=== PATIENT | male | born 1950 | race Caucasian/White ===

== ENCOUNTER 2018-06-28 02:26 | Inpatient (IN) | payer OTHER, MEDICARE, SELFPAY ==
[2018-06-28] VITALS (14 sets, daily range): BP systolic 119–138; BP diastolic 56–75; PULSE 93–108; RESP 16–20; TEMP 37.1–38; O2SAT 94–98; BMI 22.1; BMI 20.3
--- NOTE | 2018-06-28 02:40 | RAD_ITS ---
STUDY: X-RAY CHEST REASON FOR EXAM: Male, 67 years old. Fever TECHNIQUE: 1 view COMPARISON: None. FINDINGS: The lungs are clear. The heart is normal in size. This is slightly elevated right hemidiaphragm.. Normal visualized thoracic spine. Degenerative changes of the right glenohumeral articulation There is no demonstrated abnormality of the visualized soft tissue structures of the upper abdomen. RAD/Chest 1 View (Portable) IMPRESSION: No acute findings in the lungs. Slightly elevated right hemidiaphragm Electronically Signed: London Morrow MD at 3:36 EST Tel , Service support ,
[2018-06-28] MEDS: 0.9% Normal Saline 1,000 ML 150 ML IV (03:00)
[2018-06-28 03:05] LABS: Absolute Lymphocyte Count 1.21 X10^3/ul (0.83-4.51); Absolute Neutrophil Count 10.3 X10^3/uL (2.0-7.7); Basophil# 0.02 X10^3/uL; Basophil% 0.2 % (0-1); Eosinophil# 0.02 X10^3/uL; Eosinophils% 0.2 % (0-5); Hematocrit 49.5 % (40-54); Lymphocyte # 1.21 X10^3/ul (4.0); Lymphocyte % 9.7 % (19-41); Mean Corp Hgb Conc 32.3 g/gl (32-36); Mean Corpuscular Hgb 30.2 pg (27.0-32.0); Mean Corpuscular Volume 93.6 fL (80-94); Mean Platelet Vol. 12.9 fl (6.2-12.0); Monocyte# 0.88 X10^3/uL; Monocyte% 7.1 % (0-10); Neutrophil # 10.27 X10^3/uL (2.7-7.7); Neutrophil % 82.6 % (47-70); POSITIVE COUNT NO; POSITIVE DIFFERENTIAL NO; POSITIVE MORPHOLOGY NO; Platelet Count 210 K/mm3 (150-450); RBC Distribution Width CV 15.8 % (11.6-14.6); RBC Distribution Width SD 53.9 fl (35.1-43.9); Red Blood Count 5.29 M/mm3 (4.6-6.2); White Blood Count 12.4 K/mm3 (4.4-11.0)
[2018-06-28 03:33] LABS: Mucous, Urine 0 SEEN /hpf (<or=2+); Squamous Epithelial Cells - UA 0 SEEN /hpf (0-5)
[2018-06-28 03:36] LABS: Color, Urine Yellow (Yellow); Glucose, Dipstick Normal (Normal); Ketone-Dipstick Negative (Negative); Leukocyte Esterase-Dipstick 500 /ul (Negative); Nitrite-Dipstick Positive (Negative); Occult Blood-Urine 10 /ul (Negative); Protein-Dipstick Negative (Negative); Urine Bilirubin Dipstick Negative (Negative); Urine Clarity Sl. Cloudy (Clear); Urine Urobilinogen Normal (Normal)
[2018-06-28 03:58] LABS: Bacteria 2+ /hpf (None Seen); Red Blood Cells-Urine 0-5 SEEN /hpf (0-5); White Blood Cells 10-25 SEEN /hpf (0-5)
[2018-06-28 04:17] LABS: ALB/GLOB Ratio 0.4 RATIO (0.9-2.4); AST(SGOT) 60 U/L (15-37); Alanine Aminotransfer ALT/SGPT 90 U/L (16-61); Albumin, Serum 1.8 g/dL (3.2-5.0); Alkaline Phosphatase 118 U/L (45-117); Anion Gap 8 (5-15); BUN 18 mg/dL (7-18); BUN/Creat Ratio 41.1 RATIO (10-20); Calcium,Total 8.3 mg/dL (8.5-10.1); Chloride 105 mmol/L (98-107); Creatinine, Serum 0.44 mg/dL (0.70-1.30); EST Glomerular Filtration Rate 204 mL/min (>60); Est Glom Filt Rate - Afr Amer 246 mL/min (>60); Estimated Creatinine Clearance 55.81 ml/min; Globulin 4.1 g/dL (2.2-4.2); Glucose 127 mg/dL (74-106); Potassium 3.9 mmol/L (3.5-5.1); Protein, Total 5.9 g/dL (6.4-8.2); Sodium Level 140 mmol/L (136-145)
--- NOTE | 2018-06-28 04:26 | ED.RN ---
CALLED [facility] EXT. [id number]. NELLI STATED THAT THEY DO NOT HAVE ANY BEDS AVAILABLE THROUGH THE [place] AND IT IS OKAY TO ADMIT THIS PT TO [facility].
[2018-06-28 04:27] LABS: Lactic Acid 1.4 mmol/L (0.4-2.0)
--- NOTE | 2018-06-28 04:29 | ED.VISSUMM ---
- ER Visit Summary Date of Service: 06/28/18 Chief Complaint: [Fever] History of Present Illness: The patient is a 67 M [presents the emergency department with complaint of a fever that started last evening around 11 PM. Patient began to feel flushed and when he checked his temperature at home it was 102. gave him Tylenol. Patient does have a history of multiple sclerosis. Patient just generally feeling weak. Patient's had a chronic cough. Patient had a baclofen pump replaced on the of the month at the [place]. Patient denies any abdominal pain. Denies any chest pain. He denies any dysuria. Patient does use a condom catheter at night.] Physical Examination: [HEENT-PERRLA, EOMI. Cranial nerves II through XII grossly intact. TMs clear. Mucous membranes moist. No adenopathy. Cardiovascular-regular rate and rhythm without murmur or ectopy Lungs-clear to auscultation, chest wall stable without crepitus or subcu emphysema Abdomen-normoactive bowel sounds, soft, nontender, no rebound or rigidity, no peritoneal signs. Patient has a baclofen pump noted in the right side of the abdomen with surrounding erythema and warmth noted. No drainage noted from the wound. Extremities-intact ?4, normal range of motion, normal pulses, atraumatic] Test Results: [CBC with differential showed a white count 12.4, hemoglobin 16, hematocrit 49, platelets 210. Chemistries unremarkable. LFTs were slightly elevated with an alk phos of 118 ALT of 90 and a AST of 60. Chest x-ray showed nothing acute. Urinalysis was positive for nitrites, 500 leukocyte esterase, 1025 WBCs, and +2 bacteria. Lactate was 1.4.] Emergency Department Course and Treatment: [Patient was started on Unasyn and vancomycin. Blood cultures ordered.] Treatment Plan: [Admit for IV antibiotics] Disposition: [Admit] Impression: [Sepsis UTI Postop wound infection] This note was generated with [employer] software. It may contain incorrect words, spelling, and punctuation that were not noted in review of the chart prior to signing ED Disposition - Plan for ED Patient: Chief Complaint: Fever
--- NOTE | 2018-06-28 04:37 | ED.DCSUM_ITS ---
- ER Visit Summary Date of Service: 06/28/18 Chief Complaint: [Fever] History of Present Illness: The patient is a 67 M [presents the emergency department with complaint of a fever that started last evening around 11 PM. Patient began to feel flushed and when he checked his temperature at home it was 102. gave him Tylenol. Patient does have a history of multiple sclerosis. Patient just generally feeling weak. Patient's had a chronic cough. Patient had a baclofen pump replaced on the of the month at the [place]. Patient denies any abdominal pain. Denies any chest pain. He denies any dysuria. Patient does use a condom catheter at night.] Physical Examination: [HEENT-PERRLA, EOMI. Cranial nerves II through XII grossly intact. TMs clear. Mucous membranes moist. No adenopathy. Cardiovascular-regular rate and rhythm without murmur or ectopy Lungs-clear to auscultation, chest wall stable without crepitus or subcu emphysema Abdomen-normoactive bowel sounds, soft, nontender, no rebound or rigidity, no peritoneal signs. Patient has a baclofen pump noted in the right side of the abdomen with surrounding erythema and warmth noted. No drainage noted from the wound. Extremities-intact ?4, normal range of motion, normal pulses, atraumatic] Test Results: [CBC with differential showed a white count 12.4, hemoglobin 16, hematocrit 49, platelets 210. Chemistries unremarkable. LFTs were slightly elevated with an alk phos of 118 ALT of 90 and a AST of 60. Chest x-ray showed nothing acute. Urinalysis was positive for nitrites, 500 leukocyte esterase, 1025 WBCs, and +2 bacteria. Lactate was 1.4.] Emergency Department Course and Treatment: [Patient was started on Unasyn and vancomycin. Blood cultures ordered.] Treatment Plan: [Admit for IV antibiotics] Disposition: [Admit] Impression: [Sepsis UTI Postop wound infection] This note was generated with [employer] software. It may contain incorrect words, spelling, and punctuation that were not noted in review of the chart prior to signing ED Disposition - Plan for ED Patient: Chief Complaint: Fever
--- NOTE | 2018-06-28 05:24 | HP.PCM_ITS ---
Problem List (1) Cellulitis Status: Acute Qualifiers: Site of cellulitis: trunk Site of cellulitis of trunk: abdominal wall Qualified Code(s): L03.311 - Cellulitis of abdominal wall (2) UTI (urinary tract infection) Status: Acute Qualifiers: Urinary tract infection type: site unspecified (3) Sepsis Status: Acute Qualifiers: Sepsis type: sepsis due to unspecified organism Qualified Code(s): A41.9 - Sepsis, unspecified organism (4) HTN (hypertension) Status: Chronic Qualifiers: Hypertension type: essential hypertension Qualified Code(s): I10 - Essential (primary) hypertension (5) HLD (hyperlipidemia) Status: Chronic Qualifiers: Hyperlipidemia type: pure hypercholesterolemia Qualified Code(s): E78.00 - Pure hypercholesterolemia, unspecified; E78.0 - Pure hypercholesterolemia (6) Anxiety and depression Status: Chronic (7) Malnutrition Status: Chronic Qualifiers: Malnutrition type: protein-calorie malnutrition Protein-calorie malnutr ition severity: severe Qualified Code(s): E43 - Unspecified severe protein- calorie malnutrition (8) Multiple sclerosis Status: Chronic History of Present Illness Date of Admission: 06/28/18 Chief Complaint: Fever, chills The patient is a 67 y/o M w/ PMHx: Multiple Sclerosis w/ Chronic Oropharyngeal Dysphagia on TF via PEG only in addition to condom catheter chronically notable extremity contractures, HTN, HLD, History of GI Bleed, Anxiety and Depression, GERD who presents to the [facility] ED on 06/28/18 with history of onset fever on evening of presentation in addition to general malaise, increased fatigue x 48 hours. The patient had recent 06/19/18 baclofen pump replacement and had follow- up with his surgeon the day prior. There has been serous drainage from the region but no purulent material. In the ED upon evaluation the patient had noted erythema to the lateral side of the pump insertion site region which the and patient had not noticed prior. The patient follows w/ the [facility] and an attempt to transition to [facility] was made however there were no beds available. Work- up in the ED included T 98.8, HR 105, BP 130/64, RR 20, 96% on RA, CBC w/ WBC 12.4, Hgb 16, Plts 210 with L shift, CMP w/ BUN/Cr 18/0.44, glucose 127, LA 1.4, AST/ALT 60/90, Alk phos 118, UA w/ positive nitrite, 500 LE, 10-25 WBC, 2+ bacteria, CXR without acute cardiopulmonary findings. In the ED patient administered vanc, unasyn, NS. Past Medical History Past Medical History (Chronic Problems): Chronic Problems HTN (hypertension) (Chronic) HLD (hyperlipidemia) (Chronic) Anxiety and depression (Chronic) Malnutrition (Chronic) Multiple sclerosis (Chronic) Allergies No Known Allergies Allergy (Verified 06/28/18 02:30) Home Medications: Ambulatory Orders Medication Instructions Recorded Baclofen Pump CONT 06/23/13 Baclofen [Lioresal] 5 mg GT DAILY PRN 06/23/13 Baclofen [Lioresal] 10 mg GT QHS 06/23/13 Calcium Carbonate/Vitamin D3 1 each GT DAILY 06/23/13 [Calcium 600-Vit D3 400 Tablet] Clonazepam [Klonopin] 1 mg GT QHS 06/23/13 Rosuvastatin Calcium [Crestor] 0.5 mg GT QODAY 06/23/13 Mirtazapine 22.5 mg GT QHS 10/08/15 Menthol/Lanolin/Calamine/Znox 1 applic TOPICAL TID #2 tube 10/10/15 [Calmoseptine Ointment] Bacitracin Ointment 1 applic TOPICAL TID 06/28/18 Chlorpromazine HCl 10 mg GT TID PRN 06/28/18 Cholecalciferol (VIT D3) [Vitamin 1,000 unit GT DAILY 06/28/18 D] Doxazosin Mesylate [Cardura] 1 mg GT QHS 06/28/18 Nutrit Supp/Inulin/Fos/Fiber 500 ml GT TID 06/28/18 [Fibersource Hn Liquid] Ranitidine [Zantac] 75 mg GT QHS 06/28/18 Surgical History: - - PEG, Baclofen pump with recent replacement, penile implant. Psychiatric History: Anxiety, Depression Lives: Spouse/ Significant Other Smoking Status: Never smoker Tobacco Use: Non-smoker Alcohol: None Drugs: None - *Family History Maternal History Items: Cancer - Mother health aside history of skin CA. Paternal History Items: Heart Disease Review of Systems Constitutional: Reports: Anorexia, Fever, Malaise, Weakness, Fatigue. Denies: Chills, Weight Change HEENT: Denies: Head Aches, Sinus Congestion, Sinus Drainage Cardiovascular: Denies: Chest Pain, Palpitations Respiratory: Denies: Cough, Shortness of breath at rest, Sputum production Gastrointestinal: Reports: Abdominal Pain. Denies: Nausea, Vomiting Genitourinary: Reports: Incontinence. Denies: Dysuria Musculoskeletal: Reports: Back Pain, Joint Pain. Denies: Joint Tenderness Skin: Reports: Skin Changes, Wounds. Denies: Rash Neurological: Reports: Balance problems, Slurred speech, Difficulty swallowing, Focal weakness, - - Spasms, MS. Denies: Numbness, Tingling Psychiatric: Reports: Anxiety, Depression. Denies: Homicidal Ideations, Suicidal Ideations Hematologic/ Lymphatic: Denies: Easy Bruising, Easy Bleeding VTE Information - Inpt Only VTE Present on Admission: No VTE Mechan Device Prophylaxis: SCD's VTE Pharm Prophylaxis ordered?: Yes Patient Problems: Active and Suspected Problems Cellulitis (Acute) UTI (urinary tract infection) (Acute) Sepsis (Acute) Subjective: Seated upright in the ED bed, dysarthria, hoarse voice, notable secretions, all chronic, NAD. Objective: Physical Examination: General: awake, alert, oriented x 3 and cooperative, seated upright inthe ED bed in no apparent distress. Skin: normal color, turgor, no icterus, cyanosis except R upper abdomen recent intrathecal baclofen pump insertion replacement with lateral incision erythema and tenderness palpation of the region. HEENT: AT/NC, EOMI, PERRLA, dry MM, notable secretions with frequently suctioning, no carotid bruits or JVD noted. Lungs: Diminished breath sounds bilaterally, greater bilateral gait bases, mild effort, no rales, ronchi or wheezing. Heart: Regular rate and rhythm; no gallop, rub audible. Abdomen: soft, thin habitus, TTP RUQ w/ recent baclofen pump replacement, PEG in place, ND, mildly hyperactive BS, no HSM. Extremities: no cyanosis, clubbing, notable contractures BL UE > BL LE, muscle wasting. Neurological: patient awake, alert, oriented x 3; cognitive function intact; pupils equally reactive to light and accomodation; cranial nerves II-XII grossly normal, notable contractures upper and lower extremities, notable deficits, strength severely globally decreased. Psychiatric: affect appears flat, fatigued, no acute evidence of depressive or anxiety feelings. - Physical Exam Vital Signs Temp Pulse Resp BP Pulse Ox 99 F 101 H 20 H 119/75 98 06/28/18 04:03 06/28/18 04:03 06/28/18 04:03 06/28/18 04:03 06/28/18 04:03 Oxygen Delivery Method Room Air Weight: 124 lb 12.506 oz Body Mass Index (BMI) 22.1 Laboratory Tests Past 24 Hrs 06/28/18 06/28/18 06/28/18 02:58 02:58 02:58 WBC 12.4 H RBC 5.29 Hgb 16.0 Hct 49.5 MCV 93.6 MCH 30.2 MCHC 32.3 RDW 15.8 H RDW Differential 53.9 H Plt Count 210 MPV 12.9 H Immature Gran % (Auto) 0.200 Neut % (Auto) 82.6 H Lymph % (Auto) 9.7 L [place] % (Auto) 7.1 Eos % (Auto) 0.2 Baso % (Auto) 0.2 Absolute Neuts (auto) 10.3 H Absolute Lymphs (auto) 1.21 Total Counted Not Reportable Sodium Cancelled Potassium Cancelled Chloride Cancelled Carbon Dioxide Cancelled Anion Gap Cancelled BUN Cancelled Creatinine Cancelled Estim Creat Clear Calc Cancelled Est GFR (MDRD) Af Amer Cancelled Est GFR (MDRD) Non-Af Cancelled BUN/Creatinine Ratio Cancelled Glucose Cancelled Lactic Acid Cancelled Calcium Cancelled Total Bilirubin Cancelled AST Cancelled ALT Cancelled Alkaline Phosphatase Cancelled Total Protein Cancelled Albumin Cancelled Globulin Cancelled Albumin/Globulin Ratio Cancelled Urine Color Urine Clarity Urine pH Ur Specific [place] Urine Protein Urine Glucose (UA) Urine Ketones Urine Occult Blood Urine Nitrite Urine Bilirubin Urine Urobilinogen Ur Leukocyte Esterase Urine RBC Urine WBC Ur Squamous Epith Cells Urine Bacteria Urine Mucus 06/28/18 06/28/18 06/28/18 03:30 03:46 03:46 WBC RBC Hgb Hct MCV MCH MCHC RDW RDW Differential Plt Count MPV Immature Gran % (Auto) Neut % (Auto) Lymph % (Auto) [place] % (Auto) Eos % (Auto) Baso % (Auto) Absolute Neuts (auto) Absolute Lymphs (auto) Total Counted Sodium 140 Potassium 3.9 Chloride 105 Carbon Dioxide 27.0 Anion Gap 8 BUN 18 Creatinine 0.44 L Estim Creat Clear Calc 55.81 Est GFR (MDRD) Af Amer 246 Est GFR (MDRD) Non-Af 204 BUN/Creatinine Ratio 41.1 H Glucose 127 H Lactic Acid 1.4 Calcium 8.3 L Total Bilirubin 0.50 AST 60 H ALT 90 H Alkaline Phosphatase 118 H Total Protein 5.9 L Albumin 1.8 L Globulin 4.1 Albumin/Globulin Ratio 0.4 L Urine Color Yellow Urine Clarity Sl. Cloudy Urine pH 8.0 Ur Specific [place] 1.010 Urine Protein Negative Urine Glucose (UA) Normal Urine Ketones Negative Urine Occult Blood 10 H Urine Nitrite Positive H Urine Bilirubin Negative Urine Urobilinogen Normal Ur Leukocyte Esterase 500 H Urine RBC 0-5 SEEN Urine WBC 10-25 SEEN Ur Squamous Epith Cells 0 SEEN Urine Bacteria 2+ Urine Mucus 0 SEEN Assessment/Plan All Active Problems Cellulitis (Acute) UTI (urinary tract infection) (Acute) Sepsis (Acute) Rectal bleeding (Acute) Colitis (Acute) The patient is a 67 y/o M w/ PMHx: Multiple Sclerosis w/ Chronic Oropharyngeal Dysphagia on TF via PEG only in addition to condom catheter chronically notable extremity contractures, HTN, HLD, History of GI Bleed, Anxiety and Depression, GERD who presents to the [facility] ED on 06/28/18 with history of onset fever on evening of presentation in addition to general malaise, increased fatigue x 48 hours. (1) Acute sepsis secondary to suspected Cellulitis Baclofen Pump Insertion, Possible Abscess consistent with Post-operative Wound Infection and #2 as noted: Will admit to PCU given notable neurological debilities, possible infection intrathecal pump, maintain on IV vanc and zosyn, request ID and surgery consultation, await CT A/P to further assess for possible abscess to the insertion pump insert region, if recurrent discharge from surgical incision will obtain Wound Cx and Wound MRSA PCR, plan repeat CBC in AM, monitor erythema outline with VS checks. Given pump is intrathecal, some concern for possible spinal infection. (2) Acute Urinary Tract Infection: UA upon ED evaluation remarkable, pending UCx, continue IVFs, monitor I/Os, continue BSA secondary to concurrent possible #1 as noted w/ IV Vanc and Zosyn pending sensitivities and speciation. Bld cx x 2 obtained in the ED. (3) Elevated LFTs: Unclear etiology, possible secondary to acute presentation, sepsis, will obtain hepatitis panel, pending imaging as noted. (4) Multiple Sclerosis: Patient notably debilitated w/ chronic oropharyngeal dysphagia on TF via PEG only (500 ml Nestle high fiber (2 cans) TID), condom catheter chronically, notable extremity contractures, frequent OP care and suction, PT, OT, CM consultations, HOB, IS, oral care, positioning, barrier cream. Currently continued on baclofen pump pending continued evaluation as noted #1. (5) Hypertension: Continue home regimen including Cardura, PRN hydralazine. (6) Hyperlipidemia: Continue home statin regimen. (7) Anxiety and Depression: Continue home regimen Klonopin, mirtazapine. (8) Severe Protein-Calorie Malnutrition: Evidenced per habitus, muscle and fat loss, nutrition consulted, continue TFs pending nutrition assessment. (9) GERD: Ranitidine. (10) DVT Prophylaxis: SCDs, lovenox. (11) CODE status: Discussed CODE status at length including difference between FULL code, DNR-CCA and DNR-CC status. Following discussions about the differences in these status, requested DNR-CCA, no intubation status. is HCPOA. Living will is in place. Advanced Care Planning Face to Face Time:16 minutes. Code Visit Inpatient E&M: 05457 Init Hosp L3 Procedures: 44276 Advncd Care Plan 30 Min
--- NOTE | 2018-06-28 05:25 | CT_ITS ---
STUDY: CT ABDOMEN AND PELVIS WITH CONTRAST REASON FOR EXAM: Male, 67 years old. Baclofen pump insertion. Cellulitis RADIATION DOSAGE (If Supplied By Facility): CTDIvol = ( 11.55 ) mGy, DLP = ( 992.51 ) mGycm TECHNIQUE: Transaxial images were obtained from the dome of the diaphragm to the symphysis pubis without oral contrast. 100 ml of Isovue 300 contrast was administered. Sagittal and coronal images were reconstructed. Individualized dose optimization techniques were used for this CT. COMPARISON: October 08, 2015 CT abdomen pelvis. FINDINGS: Right lower lobe atelectasis as well as airspace disease. Subtle subsegmental atelectasis in the left lower lobe. Coronary vascular calcifications. Low-attenuation foci within the liver possibly hemangiomas or hepatic cyst which can be better characterized with MR examination nonetheless were present on previous study. Wall thickening of the gallbladder seen which appears nondistended however. Gastrostomy tube is noted in place. Bowel gas pattern is nonobstructive and nonspecific. There are likely bilateral Pelvic cysts present similar to previous examination. Nonobstructing stones in the left kidney suspected largest measuring up to 8 mm similar previous exam. Vascular calcifications A right-sided pain pump device noted with overlying soft tissue swelling involving the right anterolateral abdominal wall musculature with edema and heterogeneous fluid possibly hematoma or phlegmonous changes. No retroperitoneal adenopathy. There is likely a penile pump device present however not well characterized on this exam. Uncomplicated colonic diverticulosis. Heterogeneous density in the region of the prostate gland Mild wedging of the thoracic vertebrae. Pain pump device leads are seen entering the spinal canal at approximately L1-L2 interspinous space along the ventral aspect of the spinal canal with its tip terminating along the dorsal aspect of the spinal canal at approximately T10 level. IMPRESSION: Right-sided abdominal wall pain pump device noted with associated heterogeneous ill-defined fluid with edema in the abdominal wall musculature. Differential considerations include resolving hematoma or phlegmonous changes with associated overlying cellulitis. Right lower lobe atelectasis and/or consolidation. Stable appearing cystic structures in the liver likely hemangiomas or hepatic cysts No intraperitoneal fluid collections seen. Subtle radiolucency in the S1 vertebral body which can be assessed with nuclear medicine bone scan on a nonemergent basis Right-sided nephrolithiasis. Electronically Signed: Parag Varela, at 11:27 EST Tel , Service support , CT/Abdomen/Pelvis WITH Contrast
--- NOTE | 2018-06-28 05:56 | PCM.RX.CS ---
Consult Pharmacy has been consulted to manage selected antiobiotic: Vancomycin Type of Consult: New start Suspected Infection: Sepsis Labs: Sodium 140 mmol/L (136-145) 06/28/18 03:46 Potassium 3.9 mmol/L (3.5-5.1) 06/28/18 03:46 Chloride 105 mmol/L (98-107) 06/28/18 03:46 Carbon Dioxide 27.0 mmol/L (21.0-32.0) 06/28/18 03:46 Anion Gap 8 (5-15) 06/28/18 03:46 BUN 18 mg/dL (7-18) 06/28/18 03:46 Creatinine 0.44 mg/dL (0.70-1.30) L 06/28/18 03:46 Est GFR (MDRD) Af Amer 246 mL/min (>60) 06/28/18 03:46 Est GFR (MDRD) Non-Af 204 mL/min (>60) 06/28/18 03:46 BUN/Creatinine Ratio 41.1 RATIO (10-20) H 06/28/18 03:46 Glucose 127 mg/dL (74-106) H 06/28/18 03:46 Weight used for dosin.6 kg Estimated Creatinine Clearance: 55.81 Goal Trough: 10-15 mcg/mL Pharmacy Plan for Drug Dosing: Pharmacy Service will continue to monitor and adjust dosing as required. Medications Vancomycin HCl (Vancomycin) 1,000 mg in 200 mls @ 200 mls/hr IV Q24H JUSTINO Discontinued Medications Vancomycin HCl 750 mg/ Sodium (Chloride) 265 mls @ 250 mls/hr IV X1 ONE Stop: 06/28/18 03:53 Last Admin: 06/28/18 04:07 Dose: 250 mls/hr Follow-Up Labs: Trough Vancomycin Labs to be done on [date and time ordered]: 06/30 @ 7651
[2018-06-28 06:01] LABS: Magnesium 2.1 mg/dL (1.6-2.6); Phosphorus 2.7 mg/dL (2.5-4.9)
[2018-06-28] MEDS: 0.9% Normal Saline 1,000 ML 125 ML IV ×2 (08:04→17:37)
[2018-06-28] MEDS: Piperacil/Tazobactam 3.375 GM/50 ML ML IV ×3 (08:05→22:51)
[2018-06-28] MEDS: Enoxaparin 30 MG/0.3 ML Syringe SC (09:06)
--- NOTE | 2018-06-28 10:01 | CON.PCM_ITS ---
Problem List (1) Sepsis Status: Acute Qualifiers: Sepsis type: sepsis due to unspecified organism Qualified Code(s): A41.9 - Sepsis, unspecified organism (2) UTI (urinary tract infection) Status: Acute Qualifiers: Urinary tract infection type: site unspecified Hematuria presence: without hematuria Qualified Code(s): N39.0 - Urinary tract infection, site not specified (3) Cellulitis Status: Acute Qualifiers: Site of cellulitis: trunk Site of cellulitis of trunk: abdominal wall Qualified Code(s): L03.311 - Cellulitis of abdominal wall Reason for Consult Date of Consultation: 06/28/18 History of Present Illness: The patient is a 67 y/o M w/ PMHx: Multiple Sclerosis w/ Chronic Oropharyngeal Dysphagia on TF via PEG only in addition to condom catheter chronically notable extremity contractures, HTN, HLD, History of GI Bleed, Anxiety and Depression, GERD who presents to the [facility] ED on 06/28/18 with history of onset fever on evening of presentation in addition to general malaise, increased fatigue x 48 hours. The patient had recent 06/19/18 baclofen pump replacement and had follow- up with his surgeon the day prior. There has been serous drainage from the region but no purulent material. In the ED upon evaluation the patient had noted erythema to the lateral side of the pump insertion site region which the and patient had not noticed prior. The patient follows w/ the MD and an attempt to transition to [facility] was made however there were no beds available. Work- up in the ED included T 98.8, HR 105, BP 130/64, RR 20, 96% on RA, CBC w/ WBC 12.4, Hgb 16, Plts 210 with L shift, CMP w/ BUN/Cr 18/0.44, glucose 127, LA 1.4, AST/ALT 60/90, Alk phos 118, UA w/ positive nitrite, 500 LE, 10-25 WBC, 2+ bacteria, CXR without acute cardiopulmonary findings. In the ED patient administered vanc, unasyn, NS. The patient is complaining of some pain where his pump has been placed. Past Medical History Past Medical History (Chronic Problems): Chronic Problems HTN (hypertension) (Chronic) HLD (hyperlipidemia) (Chronic) Anxiety and depression (Chronic) Malnutrition (Chronic) Multiple sclerosis (Chronic) Allergies No Known Allergies Allergy (Verified 06/28/18 02:30) Home Medications: Ambulatory Orders Medication Instructions Recorded Baclofen Pump CONT 06/23/13 Baclofen [Lioresal] 5 mg GT DAILY PRN 06/23/13 Baclofen [Lioresal] 10 mg GT QHS 06/23/13 Calcium Carbonate/Vitamin D3 1 each GT DAILY 06/23/13 [Calcium 600-Vit D3 400 Tablet] Clonazepam [Klonopin] 1 mg GT QHS 06/23/13 Rosuvastatin Calcium [Crestor] 0.5 mg GT QODAY 06/23/13 Mirtazapine 22.5 mg GT QHS 10/08/15 Acetaminophen [Tylenol] 325 mg PO 06/28/18 Bacitracin Ointment 1 applic TOPICAL TID 06/28/18 Chlorpromazine HCl 10 mg GT TID PRN 06/28/18 Cholecalciferol (VIT D3) [Vitamin 1,000 unit GT DAILY 06/28/18 D] Docusate Sodium/Benzocaine 1 each RC 06/28/18 [Docusol Plus Mini-Enema] Doxazosin Mesylate [Cardura] 1 mg GT QHS 06/28/18 Lactose-Reduced Food/Fiber [Jevity 500 ml GT TID 06/28/18 1.5 Reuben Liquid] Nutrit Supp/Inulin/Fos/Fiber 500 ml GT TID 06/28/18 [Fibersource Hn Liquid] Nystatin Powder [Mycostatin Powder] 1 applic TOPICAL BID 06/28/18 Ranitidine [Zantac] 75 mg GT QHS 06/28/18 Surgical History: - - PEG, Baclofen pump with recent replacement, penile implant. Psychiatric History: Anxiety, Depression Lives: Spouse/ Significant Other Smoking Status: Never smoker Tobacco Use: Non-smoker Alcohol: None Drugs: None - *Family History Maternal History Items: Cancer - Mother health aside history of skin CA. Paternal History Items: Heart Disease Review of Systems Constitutional: Reports: Fever Cardiovascular: Denies: Chest Pain, Chest Pressure, Chest Tightness, Palpitations Respiratory: Denies: Cough, Hemoptysis, Shortness of breath at rest, Shortness of breath upon exertion, Wheezing Gastrointestinal: Reports: Abdominal Pain Patient Problems: Active and Suspected Problems Cellulitis (Acute) UTI (urinary tract infection) (Acute) Sepsis (Acute) - Physical Exam General: Alert, Oriented x3, Cooperative Lungs: Clear to auscultation Cardiovascular: Regular rate, Regular Rhythm, No murmurs Abdomen: Soft, Non Tender, - - No obvious signs of cellulitis this morning. Incision appears to be healing well and there is no drainage he has no pain going along into his back Vital Signs Temp Pulse Resp BP Pulse Ox 100.3 F H 97 18 138/68 H 94 06/28/18 06:30 06/28/18 07:00 06/28/18 06:30 06/28/18 06:30 06/28/18 07:53 Oxygen Delivery Method Room Air Weight: 115 lb 1.301 oz Body Mass Index (BMI) 20.3 Laboratory Tests Past 24 Hrs 06/28/18 06/28/18 06/28/18 02:58 02:58 02:58 WBC 12.4 H RBC 5.29 Hgb 16.0 Hct 49.5 MCV 93.6 MCH 30.2 MCHC 32.3 RDW 15.8 H RDW Differential 53.9 H Plt Count 210 MPV 12.9 H Immature Gran % (Auto) 0.200 Neut % (Auto) 82.6 H Lymph % (Auto) 9.7 L [place] % (Auto) 7.1 Eos % (Auto) 0.2 Baso % (Auto) 0.2 Absolute Neuts (auto) 10.3 H Absolute Lymphs (auto) 1.21 Total Counted Not Reportable Sodium Cancelled Potassium Cancelled Chloride Cancelled Carbon Dioxide Cancelled Anion Gap Cancelled BUN Cancelled Creatinine Cancelled Estim Creat Clear Calc Cancelled Est GFR (MDRD) Af Amer Cancelled Est GFR (MDRD) Non-Af Cancelled BUN/Creatinine Ratio Cancelled Glucose Cancelled Lactic Acid Cancelled Calcium Cancelled Phosphorus Magnesium Total Bilirubin Cancelled AST Cancelled ALT Cancelled Alkaline Phosphatase Cancelled Total Protein Cancelled Albumin Cancelled Globulin Cancelled Albumin/Globulin Ratio Cancelled Urine Color Urine Clarity Urine pH Ur Specific Central Urine Protein Urine Glucose (UA) Urine Ketones Urine Occult Blood Urine Nitrite Urine Bilirubin Urine Urobilinogen Ur Leukocyte Esterase Urine RBC Urine WBC Ur Squamous Epith Cells Urine Bacteria Urine Mucus 06/28/18 06/28/18 06/28/18 03:30 03:46 03:46 WBC RBC Hgb Hct MCV MCH MCHC RDW RDW Differential Plt Count MPV Immature Gran % (Auto) Neut % (Auto) Lymph % (Auto) [place] % (Auto) Eos % (Auto) Baso % (Auto) Absolute Neuts (auto) Absolute Lymphs (auto) Total Counted Sodium 140 Potassium 3.9 Chloride 105 Carbon Dioxide 27.0 Anion Gap 8 BUN 18 Creatinine 0.44 L Estim Creat Clear Calc 55.81 Est GFR (MDRD) Af Amer 246 Est GFR (MDRD) Non-Af 204 BUN/Creatinine Ratio 41.1 H Glucose 127 H Lactic Acid 1.4 Calcium 8.3 L Phosphorus Magnesium Total Bilirubin 0.50 AST 60 H ALT 90 H Alkaline Phosphatase 118 H Total Protein 5.9 L Albumin 1.8 L Globulin 4.1 Albumin/Globulin Ratio 0.4 L Urine Color Yellow Urine Clarity Sl. Cloudy Urine pH 8.0 Ur Specific Central 1.010 Urine Protein Negative Urine Glucose (UA) Normal Urine Ketones Negative Urine Occult Blood 10 H Urine Nitrite Positive H Urine Bilirubin Negative Urine Urobilinogen Normal Ur Leukocyte Esterase 500 H Urine RBC 0-5 SEEN Urine WBC 10-25 SEEN Ur Squamous Epith Cells 0 SEEN Urine Bacteria 2+ Urine Mucus 0 SEEN 06/28/18 03:46 WBC RBC Hgb Hct MCV MCH MCHC RDW RDW Differential Plt Count MPV Immature Gran % (Auto) Neut % (Auto) Lymph % (Auto) Dick[place] % (Auto) Eos % (Auto) Baso % (Auto) Absolute Neuts (auto) Absolute Lymphs (auto) Total Counted Sodium Potassium Chloride Carbon Dioxide Anion Gap BUN Creatinine Estim Creat Clear Calc Est GFR (MDRD) Af Amer Est GFR (MDRD) Non-Af BUN/Creatinine Ratio Glucose Lactic Acid Calcium Phosphorus 2.7 Magnesium 2.1 Total Bilirubin AST ALT Alkaline Phosphatase Total Protein Albumin Globulin Albumin/Globulin Ratio Urine Color Urine Clarity Urine pH Ur Specific Central Urine Protein Urine Glucose (UA) Urine Ketones Urine Occult Blood Urine Nitrite Urine Bilirubin Urine Urobilinogen Ur Leukocyte Esterase Urine RBC Urine WBC Ur Squamous Epith Cells Urine Bacteria Urine Mucus Assessment/Plan All Active Problems Cellulitis (Acute) UTI (urinary tract infection) (Acute) Sepsis (Acute) Rectal bleeding (Acute) Colitis (Acute) At the present time I am not convinced that his pump is infected or dealing with a postoperative wound infection. Whatever cellulitis he had in the emergency department appears to have improved. He has no drainage from his incision site and it appears to be healing well. I think he has normal postoperative swelling for being approximately 9 days out from surgery. I believe the morning likely has urosepsis from his urinary tract infection and I think the best thing to do was treat him conservatively at this time to see if he does improve. CAT scan of his abdomen and pelvis has been ordered. And I am sure that they are going to show some small amounts of air in the wound but if there is a large amount then a needle aspiration with a stat Gram stain should be performed.
--- NOTE | 2018-06-28 11:43 | PCM.HOSP.N ---
Hospitalist Note The patient was admitted community health worker today. H&P, vitals, labs and plan of management reviewed. In summary, This is a 67-year-old male with history of multiple sclerosis, chronic oropharyngeal dysphagia on tube feed, chronically contracted was admitted with fever on evening yesterday, generalized weakness for 48 hours. Patient also found erythema around the recent baclofen pump placement on June 19, 2018. There is some pain and tenderness also present. On exam: Mild erythema around baclofen pump operative site mainly lateral aspect along with tenderness. Mild serous drainage as per the . No drainage on exam. PEG tube site shows chronic fibrosis and small amount of seropurulent drainage. Extremities chronically contracted. Patient was seen by Dr. Gasca. He agree with conservative management for cellulitis around the baclofen pump insertion. PEG tube is functioning well. Swab culture around the PEG tube purulent site sent. Continue vancomycin, dosed by pharmacist. Continue Zosyn. Continue his baseline home medications.
--- NOTE | 2018-06-28 11:51 | CCHN_ITS ---
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 H&P, vitals, labs and plan of management reviewed. In summary, This is a 67-year-old male with history of multiple sclerosis, chronic oropharyngeal dysphagia on tube feed, chronically contracted was admitted with fever on evening yesterday, generalized weakness for 48 hours. Patient also found erythema around the recent baclofen pump placement on June 19, 2018. There is some pain and tenderness also present. On exam: Mild erythema around baclofen pump operative site mainly lateral aspect along with tenderness. Mild serous drainage as per the . No drainage on exam. PEG tube site shows chronic fibrosis and small amount of seropurulent drainage. Extremities chronically contracted. Patient was seen by Dr. Gasca. He agree with conservative management for cellulitis around the baclofen pump insertion. PEG tube is functioning well. Swab culture around the PEG tube purulent site sent. Continue vancomycin, dosed by pharmacist. Continue Zosyn. Continue his baseline home medications.
[2018-06-28 12:24] LABS: M R Staph aureus DNA By PCR Negative (Negative); Probe Check PASS; Specimen Processing Control PASS; Staph aureus DNA By PCR NEGATIVE (Negative)
[2018-06-28] MEDS: Jevity 1.5. 1,000 ML Bottle 500 ML GT (12:24)
[2018-06-28] MEDS: Ondansetron 4 MG/2 ML Vial IV (18:35)
[2018-06-28] MEDS: Doxazosin 1 MG Tablet GT (22:47)
[2018-06-28] MEDS: Baclofen 10 MG Tablet GT (22:48)
[2018-06-28] MEDS: Mirtazapine 15 MG Tablet 22.5 MG GT (22:48)
[2018-06-28] MEDS: clonazePAM 1 MG Tablet GT (22:48)
[2018-06-29] VITALS (11 sets, daily range): BP systolic 108–115; BP diastolic 58–65; PULSE 82–101; RESP 16–20; TEMP 36.7–37.3; O2SAT 95–96
[2018-06-29] MEDS: Acetaminophen 325 MG Tablet 650 MG PO (00:24)
[2018-06-29] MEDS: Ondansetron 4 MG/2 ML Vial IV (01:07)
[2018-06-29] MEDS: 0.9% NaCl Peripheral Flush Adult/Peds IV ×2 (01:07→01:09)
[2018-06-29] MEDS: 0.9% Normal Saline 1,000 ML 125 ML IV ×3 (01:49→18:24)
[2018-06-29 06:05] LABS: ALB/GLOB Ratio 0.4 RATIO (0.9-2.4); AST(SGOT) 47 U/L (15-37); Alanine Aminotransfer ALT/SGPT 66 U/L (16-61); Albumin, Serum 1.4 g/dL (3.2-5.0); Alkaline Phosphatase 94 U/L (45-117); Anion Gap 7 (5-15); BUN 13 mg/dL (7-18); BUN/Creat Ratio 43.8 RATIO (10-20); Calcium,Total 7.2 mg/dL (8.5-10.1); Chloride 113 mmol/L (98-107); EST Glomerular Filtration Rate 319 mL/min (>60); Est Glom Filt Rate - Afr Amer 386 mL/min (>60); Estimated Creatinine Clearance 51.48 ml/min; Globulin 3.3 g/dL (2.2-4.2); Glucose 87 mg/dL (74-106); Potassium 3.4 mmol/L (3.5-5.1); Protein, Total 4.7 g/dL (6.4-8.2); Sodium Level 144 mmol/L (136-145)
[2018-06-29] MEDS: Piperacil/Tazobactam 3.375 GM/50 ML ML IV ×3 (06:18→22:05)
[2018-06-29] MEDS: Vancomycin IV 1,000 MG/200 ML BAG 200 MG IV (06:18)
[2018-06-29 06:21] LABS: Absolute Lymphocyte Count 1.17 X10^3/ul (0.83-4.51); Absolute Neutrophil Count 8.2 X10^3/uL (2.0-7.7); Basophil# 0.02 X10^3/uL; Basophil% 0.2 % (0-1); Eosinophil# 0.01 X10^3/uL; Eosinophils% 0.1 % (0-5); Hematocrit 35.5 % (40-54); Hemoglobin 11.3 g/dl (13.0-16.5); Lymphocyte # 1.17 X10^3/ul (4.0); Lymphocyte % 11.2 % (19-41); Mean Corp Hgb Conc 31.8 g/gl (32-36); Mean Corpuscular Hgb 30.2 pg (27.0-32.0); Mean Corpuscular Volume 94.9 fL (80-94); Mean Platelet Vol. 13.2 fl (6.2-12.0); Monocyte# 1.01 X10^3/uL; Monocyte% 9.7 % (0-10); Neutrophil # 8.21 X10^3/uL (2.7-7.7); Neutrophil % 78.5 % (47-70); Platelet Count 145 K/mm3 (150-450); Red Blood Count 3.74 M/mm3 (4.6-6.2); White Blood Count 10.5 K/mm3 (4.4-11.0)
[2018-06-29 06:41] LABS: POSITIVE COUNT NO; POSITIVE DIFFERENTIAL NO; POSITIVE MORPHOLOGY NO
--- NOTE | 2018-06-29 08:08 | PN.SURG_ITS ---
Patient Problems: Active and Suspected Problems Cellulitis (Acute) UTI (urinary tract infection) (Acute) Sepsis (Acute) Subjective: Patient evaluated resting in bed. Patient notes minimal amount of discomfort at the baclofen pump with palpation. - Physical Exam General: Alert, Cooperative Abdomen: Soft, Tender - Near the incision, - - Incision c/d/i. No drainage noted. Slight erythema noted. PEG tube in place. Vital Signs Temp Pulse Resp BP Pulse Ox 98.0 F 83 16 108/61 95 06/29/18 04:25 06/29/18 07:30 06/29/18 04:25 06/29/18 04:25 06/29/18 07:34 Oxygen Delivery Method Room Air Weight: 115 lb 1.301 oz Body Mass Index (BMI) 20.3 Intake and Output for Last 24 Hours 06/27/18 06/28/18 06/29/18 23:59 23:59 23:59 Intake Total 3392 / 3392 890.9 / 890.9 Output Total 851 / 851 Balance 2541 / 2541 890.9 / 890.9 Laboratory Tests Past 24 Hrs 06/28/18 06/29/18 06/29/18 11:00 04:50 04:50 WBC 10.5 RBC 3.74 L Hgb 11.3 L Hct 35.5 L MCV 94.9 H MCH 30.2 MCHC 31.8 L RDW 16.0 H RDW Differential 54.0 H Plt Count 145 L MPV 13.2 H Immature Gran % (Auto) 0.300 Neut % (Auto) 78.5 H Lymph % (Auto) 11.2 L [place] % (Auto) 9.7 Eos % (Auto) 0.1 Baso % (Auto) 0.2 Absolute Neuts (auto) 8.2 H Absolute Lymphs (auto) 1.17 Total Counted Not Reportable Sodium 144 Potassium 3.4 L Chloride 113 H Carbon Dioxide 24.0 Anion Gap 7 BUN 13 Creatinine 0.30 L Estim Creat Clear Calc 51.48 Est GFR (MDRD) Af Amer 386 Est GFR (MDRD) Non-Af 319 BUN/Creatinine Ratio 43.8 H Glucose 87 Calcium 7.2 L Total Bilirubin 0.70 AST 47 H ALT 66 H Alkaline Phosphatase 94 Total Protein 4.7 L Albumin 1.4 L Globulin 3.3 Albumin/Globulin Ratio 0.4 L Hepatitis A IgM Ab Hepatitis A Ab Total Hep Bs Antigen Hep B Core Total Ab Hep B Core IgM Ab S.aureus Protein A PCR NEGATIVE MRSA (PCR) Negative 06/29/18 04:50 WBC RBC Hgb Hct MCV MCH MCHC RDW RDW Differential Plt Count MPV Immature Gran % (Auto) Neut % (Auto) Lymph % (Auto) [place] % (Auto) Eos % (Auto) Baso % (Auto) Absolute Neuts (auto) Absolute Lymphs (auto) Total Counted Sodium Potassium Chloride Carbon Dioxide Anion Gap BUN Creatinine Estim Creat Clear Calc Est GFR (MDRD) Af Amer Est GFR (MDRD) Non-Af BUN/Creatinine Ratio Glucose Calcium Total Bilirubin AST ALT Alkaline Phosphatase Total Protein Albumin Globulin Albumin/Globulin Ratio Hepatitis A IgM Ab Pending Hepatitis A Ab Total Pending Hep Bs Antigen Pending Hep B Core Total Ab Pending Hep B Core IgM Ab Pending S.aureus Protein A PCR MRSA (PCR) Medical Necessity - Tobacco Use Smoking Status: Never smoker Tobacco Use: Non-smoker Assessment/Plan All Active Problems Cellulitis (Acute) UTI (urinary tract infection) (Acute) Sepsis (Acute) Rectal bleeding (Acute) Colitis (Acute) I am following this patient in conjunction with Dr. Gasca. No surgical intervention at this time We will continue to monitor this patient Code Visit Inpatient E&M: 59040 [facility] Hosp L1
--- NOTE | 2018-06-29 09:55 | PCM.PN.HOSP ---
Patient Problems: Active and Suspected Problems Cellulitis (Acute) UTI (urinary tract infection) (Acute) Sepsis (Acute) Subjective: No new complaints. Vitals/I&O's: Vital Signs Temp Pulse Resp BP Pulse Ox 36.7 C 83 16 108/61 95 06/29/18 04:25 06/29/18 07:30 06/29/18 04:25 06/29/18 04:25 06/29/18 07:34 Oxygen Delivery Method Room Air Weight: 52.2 kg Body Mass Index (BMI) 20.3 Intake and Output for Last 24 Hours 06/27/18 06/28/18 06/29/18 23:59 23:59 23:59 Intake Total 3392 / 3392 890.9 / 890.9 Output Total 851 / 851 Balance 2541 / 2541 890.9 / 890.9 General: Alert, Cooperative, No apparent distress HEENT: Atraumatic, Normocephalic Oral: Moist Mucosa, No Gingival or Mucosal Lesions/ Ulcerations Neck: No Nodes, Thyroid Normal Size and Texture Lungs: Clear to auscultation, Normal air movement, No rhonchi, No wheeze Cardiovascular: Regular rate, Regular Rhythm, Normal S1, Normal S2, No murmurs Abdomen: Bowel Sounds Present, Soft, Non Tender, Non-Distended, No Hepato-splenomegaly Extremities: No edema, No Calf Tenderness Skin: No breakdown, - - light erythema overlying baclofen pump on right abdomen. Musculoskeletal: No Tenderness to Palpation of Joints or Extremities, No Muscle Wasting Psych/Mental Status: Normal Affect, Appropriate Laboratory Results 06/28/18 11:00: S.aureus Protein A PCR NEGATIVE, MRSA (PCR) Negative 06/29/18 04:50: WBC 10.5, RBC 3.74 L, Hgb 11.3 L, Hct 35.5 L, MCV 94.9 H, MCH 30.2, MCHC 31.8 L, RDW 16.0 H, RDW Differential 54.0 H, Plt Count 145 L, MPV 13.2 H, Immature Gran % (Auto) 0.300, Neut % (Auto) 78.5 H, Lymph % (Auto) 11.2 L, [place] % (Auto) 9.7, Eos % (Auto) 0.1, Baso % (Auto) 0.2, Absolute Neuts (auto) 8.2 H, Absolute Lymphs (auto) 1.17, Total Counted Not Reportable 06/29/18 04:50: Sodium 144, Potassium 3.4 L, Chloride 113 H, Carbon Dioxide 24.0, Anion Gap 7, BUN 13, Creatinine 0.30 L, Estim Creat Clear Calc 51.48, Est GFR (MDRD) Af Amer 386, Est GFR (MDRD) Non-Af 319, BUN/Creatinine Ratio 43.8 H, Glucose 87, Calcium 7.2 L, Total Bilirubin 0.70, AST 47 H, ALT 66 H, Alkaline Phosphatase 94, Total Protein 4.7 L, Albumin 1.4 L, Globulin 3.3, Albumin/Globulin Ratio 0.4 L 06/29/18 04:50: Hepatitis A IgM Ab Pending, Hepatitis A Ab Total Pending, Hep Bs Antigen Pending, Hep B Core Total Ab Pending, Hep B Core IgM Ab Pending Current Medications Acetaminophen (Tylenol) 650 mg PO Q6H PRN PRN PRN Reason: Mild Pain (scale 0-3)/T>100.7 Last Admin: 06/29/18 00:24 Dose: 650 mg Atropine Sulfate (Atropisol) 4 drop PO Q3H PRN PRN PRN Reason: aggressive oral secretions Bacitracin (Bacitracin Ointment) 1 applic TOPICAL TID [facility]; Protocol Last Admin: 06/29/18 07:07 Dose: Not Given Baclofen (Lioresal) 5 mg GT DAILY PRN PRN PRN Reason: SPASMS/PAIN Baclofen (Lioresal) 10 mg GT QHS [facility] Last Admin: 06/28/18 22:48 Dose: 10 mg Calamine/Phenol (Calmoseptine Ointment) 1 applic TOPICAL TID [facility]; Protocol Last Admin: 06/29/18 07:08 Dose: Not Given Calcium/Vitamin D (Os-Reuben 500mg + D) 1 tablet GT DAILY [facility] Last Admin: 06/28/18 09:01 Dose: Not Given Cholecalciferol (Vitamin D) 1,000 unit GT DAILY [facility] Last Admin: 06/28/18 09:02 Dose: Not Given Clonazepam (Klonopin) 1 mg GT QHS [facility] Last Admin: 06/28/18 22:48 Dose: 1 mg Dextrose (D50w Syringe) 0 gm IV X1 PRN; Protocol PRN Reason: Hypoglycemia Doxazosin Mesylate (Cardura) 1 mg GT QHS [facility] Last Admin: 06/28/18 22:47 Dose: 1 mg Enoxaparin Sodium (Lovenox) 30 mg SC DAILY@1000 [facility] Last Admin: 06/28/18 09:06 Dose: 30 mg Enteral Nutritional Formula (Jevity 1.5) 500 ml GT TIDAC [facility] Last Admin: 06/29/18 07:38 Dose: Not Given Glucagon () 1 mg IM .X1 PRN PRN Reason: Hypoglycemia Sodium Chloride () 1,000 mls @ 125 mls/hr IV .Q8H [facility] Last Admin: 06/29/18 01:49 Dose: 125 mls/hr Piperacillin Sod/Tazobactam Sod (Zosyn) 3.375 gm in 50 mls @ 12.5 mls/hr IV Q8 [facility] Last Admin: 06/29/18 06:18 Dose: 12.5 mls/hr Vancomycin IV Pharmacy to Dose (1 ea/ Sodium Chloride) 500 mls @ 250 mls/hr IV X1 PRN; Protocol PRN Reason: Rx to Dose Vancomycin HCl (Vancomycin) 1,000 mg in 200 mls @ 200 mls/hr IV Q24H [facility] Last Admin: 06/29/18 06:18 Dose: 200 mls/hr Implanted Intrathecal Pump (Pain Pump (Pt's Own)) 1 unit SC Q24 [facility] Magnesium Hydroxide (Milk Of Magnesia) 30 ml PO DAILY PRN PRN Reason: Constipation [facility] Last Admin: 06/28/18 22:48 Dose: 22.5 mg Morphine Sulfate () 2 - 4 mg IV Q3H PRN PRN PRN Reason: Severe Pain (pain scale 6-10) Morphine Sulfate () 1 - 2 mg IV Q4H PRN PRN PRN Reason: Moderate Pain (pain scale 4-5) Ondansetron HCl (Zofran) 4 mg IV Q6H PRN PRN PRN Reason: nausea, emesis Oxycodone HCl (Oxyir) 5 mg PO Q4H PRN PRN PRN Reason: Moderate Pain (pain scale 4-5) Ranitidine HCl (Z[facility]ac) [facility] Last Admin: 06/28/18 22:48 Dose: 75 mg Sodium Chloride () 5 - 15 ml IV UD PRN PRN Reason: SALINE FLUSH Last Admin: 06/29/18 01:09 Dose: 10 ml Medical Necessity - Tobacco Use Smoking Status: Never smoker Tobacco Use: Non-smoker Assessment/Plan All Active Problems Cellulitis (Acute) UTI (urinary tract infection) (Acute) Sepsis (Acute) Rectal bleeding (Acute) Colitis (Acute) 1. sepsis POA 2/2 cellulitis v. UTI improved 2. abdominal wall cellulitis overlying Baclofen pump incision on Vanc no open wounds, no fluctuance, CT showed associated heterogenous ill-defined fluid with edema in the abdominal wall musculature: hematoma v phlegmonous changes Defer to general surgery if needle aspiration is advised 3. Possible UTI suspect colonization (has chronic murphy) continue Zosyn for now, but if UCx negative, dc abx 4. MS chronic progressive [facility] 5. Dysphagia on tube feeds NPO chronic 6. DVT proph: LMWH 7. ACP: verified with patient that he is DNRCCA, but also no intubation. Code Visit Inpatient E&M: 12916 Subs Hosp L2
--- NOTE | 2018-06-29 10:09 | PN_ITS ---
Patient Problems: Active and Suspected Problems Cellulitis (Acute) UTI (urinary tract infection) (Acute) Sepsis (Acute) Subjective: No new complaints. Vitals/I&O's: Vital Signs Temp Pulse Resp BP Pulse Ox 36.7 C 83 16 108/61 95 06/29/18 04:25 06/29/18 07:30 06/29/18 04:25 06/29/18 04:25 06/29/18 07:34 Oxygen Delivery Method Room Air Weight: 52.2 kg Body Mass Index (BMI) 20.3 Intake and Output for Last 24 Hours 06/27/18 06/28/18 06/29/18 23:59 23:59 23:59 Intake Total 3392 / 3392 890.9 / 890.9 Output Total 851 / 851 Balance 2541 / 2541 890.9 / 890.9 General: Alert, Cooperative, No apparent distress HEENT: Atraumatic, Normocephalic Oral: Moist Mucosa, No Gingival or Mucosal Lesions/ Ulcerations Neck: No Nodes, Thyroid Normal Size and Texture Lungs: Clear to auscultation, Normal air movement, No rhonchi, No wheeze Cardiovascular: Regular rate, Regular Rhythm, Normal S1, Normal S2, No murmurs Abdomen: Bowel Sounds Present, Soft, Non Tender, Non-Distended, No Hepato- splenomegaly Extremities: No edema, No Calf Tenderness Skin: No breakdown, - - light erythema overlying baclofen pump on right abdomen. Musculoskeletal: No Tenderness to Palpation of Joints or Extremities, No Muscle Wasting Psych/Mental Status: Normal Affect, Appropriate Laboratory Results 06/28/18 11:00: S.aureus Protein A PCR NEGATIVE, MRSA (PCR) Negative 06/29/18 04:50: WBC 10.5, RBC 3.74 L, Hgb 11.3 L, Hct 35.5 L, MCV 94.9 H, MCH 30.2, MCHC 31.8 L, RDW 16.0 H, RDW Differential 54.0 H, Plt Count 145 L, MPV 13.2 H, Immature Gran % (Auto) 0.300, Neut % (Auto) 78.5 H, Lymph % (Auto) 11.2 L, [place] % (Auto) 9.7, Eos % (Auto) 0.1, Baso % (Auto) 0.2, Absolute Neuts (auto) 8.2 H, Absolute Lymphs (auto) 1.17, Total Counted Not Reportable 06/29/18 04:50: Sodium 144, Potassium 3.4 L, Chloride 113 H, Carbon Dioxide 24.0, Anion Gap 7, BUN 13, Creatinine 0.30 L, Estim Creat Clear Calc 51.48, Est GFR (MDRD) Af Amer 386, Est GFR (MDRD) Non-Af 319, BUN/Creatinine Ratio 43.8 H, Glucose 87, Calcium 7.2 L, Total Bilirubin 0.70, AST 47 H, ALT 66 H, Alkaline Phosphatase 94, Total Protein 4.7 L, Albumin 1.4 L, Globulin 3.3, Albumin/Globulin Ratio 0.4 L 06/29/18 04:50: Hepatitis A IgM Ab Pending, Hepatitis A Ab Total Pending, Hep Bs Antigen Pending, Hep B Core Total Ab Pending, Hep B Core IgM Ab Pending Current Medications Acetaminophen (Tylenol) 650 mg PO Q6H PRN PRN PRN Reason: Mild Pain (scale 0-3)/T>100.7 Last Admin: 06/29/18 00:24 Dose: 650 mg Atropine Sulfate (Atropisol) 4 drop PO Q3H PRN PRN PRN Reason: aggressive oral secretions Bacitracin (Bacitracin Ointment) 1 applic TOPICAL TID [facility]; Protocol Last Admin: 06/29/18 07:07 Dose: Not Given Baclofen (Lioresal) 5 mg GT DAILY PRN PRN PRN Reason: SPASMS/PAIN Baclofen (Lioresal) 10 mg GT QHS [facility] Last Admin: 06/28/18 22:48 Dose: 10 mg Calamine/Phenol (Calmoseptine Ointment) 1 applic TOPICAL TID [facility]; Protocol Last Admin: 06/29/18 07:08 Dose: Not Given Calcium/Vitamin D (Os-Reuben 500mg + D) 1 tablet GT DAILY [facility] Last Admin: 06/28/18 09:01 Dose: Not Given Cholecalciferol (Vitamin D) 1,000 unit GT DAILY [facility] Last Admin: 06/28/18 09:02 Dose: Not Given Clonazepam (Klonopin) 1 mg GT QHS [facility] Last Admin: 06/28/18 22:48 Dose: 1 mg Dextrose (D50w Syringe) 0 gm IV X1 PRN; Protocol PRN Reason: Hypoglycemia Doxazosin Mesylate (Cardura) 1 mg GT QHS [facility] Last Admin: 06/28/18 22:47 Dose: 1 mg Enoxaparin Sodium (Lovenox) 30 mg SC DAILY@1000 [facility] Last Admin: 06/28/18 09:06 Dose: 30 mg Enteral Nutritional Formula (Jevity 1.5) 500 ml GT TIDAC [facility] Last Admin: 06/29/18 07:38 Dose: Not Given Glucagon () 1 mg IM .X1 PRN PRN Reason: Hypoglycemia Sodium Chloride () 1,000 mls @ 125 mls/hr IV .Q8H [facility] Last Admin: 06/29/18 01:49 Dose: 125 mls/hr Piperacillin Sod/Tazobactam Sod (Zosyn) 3.375 gm in 50 mls @ 12.5 mls/hr IV Q8 [facility] Last Admin: 06/29/18 06:18 Dose: 12.5 mls/hr Vancomycin IV Pharmacy to Dose (1 ea/ Sodium Chloride) 500 mls @ 250 mls/hr IV X1 PRN; Protocol PRN Reason: Rx to Dose Vancomycin HCl (Vancomycin) 1,000 mg in 200 mls @ 200 mls/hr IV Q24H [facility] Last Admin: 06/29/18 06:18 Dose: 200 mls/hr Implanted Intrathecal Pump (Pain Pump (Pt's Own)) 1 unit SC Q24 [facility] Magnesium Hydroxide (Milk Of Magnesia) 30 ml PO DAILY PRN PRN Reason: Constipation [facility] ([facility]eron) [facility] Last Admin: 06/28/18 22:48 Dose: 22.5 mg Morphine Sulfate () 2 - 4 mg IV Q3H PRN PRN PRN Reason: Severe Pain (pain scale 6-10) Morphine Sulfate () 1 - 2 mg IV Q4H PRN PRN PRN Reason: Moderate Pain (pain scale 4-5) Ondansetron HCl (Zofran) 4 mg IV Q6H PRN PRN PRN Reason: nausea, emesis Oxycodone HCl (Oxyir) 5 mg PO Q4H PRN PRN PRN Reason: Moderate Pain (pain scale 4-5) Ranitidine HCl (Zantac) 75 mg GT [facility] Last Admin: 06/28/18 22:48 Dose: 75 mg Sodium Chloride () 5 - 15 ml IV UD PRN PRN Reason: SALINE FLUSH Last Admin: 06/29/18 01:09 Dose: 10 ml Medical Necessity - Tobacco Use Smoking Status: Never smoker Tobacco Use: Non-smoker Assessment/Plan All Active Problems Cellulitis (Acute) UTI (urinary tract infection) (Acute) Sepsis (Acute) Rectal bleeding (Acute) Colitis (Acute) 1. sepsis POA 2/2 cellulitis v. UTI improved 2. abdominal wall cellulitis overlying Baclofen pump incision on Vanc no open wounds, no fluctuance, CT showed associated heterogenous ill-defined fluid with edema in the abdominal wall musculature: hematoma v phlegmonous changes Defer to general surgery if needle aspiration is advised 3. Possible UTI suspect colonization (has chronic murphy) continue Zosyn for now, but if UCx negative, dc abx 4. MS chronic progressive [facility] 5. Dysphagia on tube feeds NPO chronic 6. DVT proph: LMWH 7. ACP: verified with patient that he is DNRCCA, but also no intubation. Code Visit Inpatient E&M: 28738 Subs Hosp L2
[2018-06-29] MEDS: Calcium Carb/Vitamin D 1 TABLET Tablet GT (11:06)
[2018-06-29] MEDS: Enoxaparin 30 MG/0.3 ML Syringe SC (11:06)
[2018-06-29] MEDS: Jevity 1.5. 1,000 ML Bottle 500 ML GT ×2 (11:07→15:07)
[2018-06-29] MEDS: Atropine Sulfate 1% 2 ml Bottle 4 DRP PO (11:54)
--- NOTE | 2018-06-29 12:16 | NURSING ---
wound photo: left ischium
--- NOTE | 2018-06-29 12:51 | CON.PCM_ITS ---
Problem List (1) Cellulitis Status: Acute Qualifiers: Site of cellulitis: trunk Site of cellulitis of trunk: abdominal wall Qualified Code(s): L03.311 - Cellulitis of abdominal wall Reason for Consult: cellulitis Consulted by: Dr. Lancaster History of Present Illness: The patient is a 67 year old M with MS, chronic condom cath, PEG tube, and baclofen pump who presented with one day of RLQ redness and clear/reddish drainage after pump change 06/19/18. No prior h/o MRSA infection. On 06/26 noticed some increased drainage and redness. No swelling, pain stable. Taken to ED, admitted on vanc/zosyn. Feeling better, pump site less red and decreased drainage. Labs also showed some transaminitis, hep panel sent. UA with mild pyuria, Ucx with heavy growth of GNR. Full ROS performed and neg except as noted above. Additional history obtained from at bedside. - Medical History Past Medical History (Chronic Problems): Chronic Problems HTN (hypertension) (Chronic) HLD (hyperlipidemia) (Chronic) Anxiety and depression (Chronic) Malnutrition (Chronic) Multiple sclerosis (Chronic) Allergies/Adverse Reactions: Allergies No Known Allergies Allergy (Verified 06/28/18 02:30) Home Medications: Ambulatory Orders Medication Instructions Recorded Baclofen Pump CONT 06/23/13 Baclofen [Lioresal] 5 mg GT DAILY PRN 06/23/13 Baclofen [Lioresal] 10 mg GT QHS 06/23/13 Calcium Carbonate/Vitamin D3 1 each GT DAILY 06/23/13 [Calcium 600-Vit D3 400 Tablet] Clonazepam [Klonopin] 1 mg GT QHS 06/23/13 Rosuvastatin Calcium [Crestor] 0.5 mg GT QODAY 06/23/13 Mirtazapine 22.5 mg GT QHS 10/08/15 Acetaminophen [Tylenol] 325 mg PO 06/28/18 Bacitracin Ointment 1 applic TOPICAL TID 06/28/18 Chlorpromazine HCl 10 mg GT TID PRN 06/28/18 Cholecalciferol (VIT D3) [Vitamin 1,000 unit GT DAILY 06/28/18 D] Docusate Sodium/Benzocaine 1 each RC 06/28/18 [Docusol Plus Mini-Enema] Doxazosin Mesylate [Cardura] 1 mg GT QHS 06/28/18 Lactose-Reduced Food/Fiber [Jevity 500 ml GT TID 06/28/18 1.5 Reuben Liquid] Nutrit Supp/Inulin/Fos/Fiber 500 ml GT TID 06/28/18 [Fibersource Hn Liquid] Nystatin Powder [Mycostatin Powder] 1 applic TOPICAL BID 06/28/18 Ranitidine [Zantac] 75 mg GT QHS 06/28/18 - Social History Tobacco Use: non-smoker Vital Signs Temp Pulse Resp BP Pulse Ox 98.5 F 87 17 114/65 95 06/29/18 10:17 06/29/18 12:33 06/29/18 10:17 06/29/18 10:17 06/29/18 10:17 Oxygen Delivery Method Room Air Weight: 52.2 kg Body Mass Index (BMI) 20.3 Microbiology Past 72 Hours 06/28/18 11:00 Gram Stain - Final Implant - No Site/Description Given Wound Culture - Preliminary Staphylococcus aureus Presumptive C albicans 06/28/18 03:35 Urine Culture - Preliminary Urine Catheter - Catheter Gram negative maxime Laboratory Tests Past 24 Hrs 06/29/18 06/29/18 06/29/18 04:50 04:50 04:50 WBC 10.5 RBC 3.74 L Hgb 11.3 L Hct 35.5 L MCV 94.9 H MCH 30.2 MCHC 31.8 L RDW 16.0 H RDW Differential 54.0 H Plt Count 145 L MPV 13.2 H Immature Gran % (Auto) 0.300 Neut % (Auto) 78.5 H Lymph % (Auto) 11.2 L [place] % (Auto) 9.7 Eos % (Auto) 0.1 Baso % (Auto) 0.2 Absolute Neuts (auto) 8.2 H Absolute Lymphs (auto) 1.17 Total Counted Not Reportable Sodium 144 Potassium 3.4 L Chloride 113 H Carbon Dioxide 24.0 Anion Gap 7 BUN 13 Creatinine 0.30 L Estim Creat Clear Calc 51.48 Est GFR (MDRD) Af Amer 386 Est GFR (MDRD) Non-Af 319 BUN/Creatinine Ratio 43.8 H Glucose 87 Calcium 7.2 L Total Bilirubin 0.70 AST 47 H ALT 66 H Alkaline Phosphatase 94 Total Protein 4.7 L Albumin 1.4 L Globulin 3.3 Albumin/Globulin Ratio 0.4 L Hepatitis A IgM Ab Pending Hepatitis A Ab Total Pending Hep Bs Antigen Pending Hep B Core Total Ab Pending Hep B Core IgM Ab Pending - Other Studies Radiology: [] reviewed Other Studies: [] Route of nutrition/ use of supplements: [] Nutritional Intake: [] IV Site: [] Hoyt Catheter: [] - Physical Exam General: Alert, Oriented x3, Cooperative, No apparent distress HEENT: Atraumatic, PERRLA, EOMI Neck: Supple, No Nodes Lungs: Clear to auscultation, Normal air movement Cardiovascular: Regular rate, Regular Rhythm Abdomen: Soft, Non Tender, Non-Distended Extremities: No edema Skin: - - RLQ pump incision with steristrips, some surrounding erythema and induration, no drainage IV Site: Peripheral, without redness Musculoskeletal: No Tenderness to Palpation of Joints or Extremities Neurological: - - diffuse contractures - Assessment/Plan Antibiotics: [] Assessment/Plan: [] Active and Suspected Problems Cellulitis (Acute) UTI (urinary tract infection) (Acute) Sepsis (Acute) Surgical site infection after replacement of RLQ baclofen pump - appears to be improving. Mild fever on presentation with wbc of 12. Staph aureus pcr was neg. Wound cx now showing staph aureus and yeast. Cont vanc/zosyn for now, will add fluconazole. CT scan did not show any abscess around the pump, but there is inflammation. He is scheduled to see his neurologist on Friday in [place]. I think in order for this infection to completely resolve, will need surgical eval of the pump site but does not appear like he urgently needs to go to the OR for explantation. GNR bacteruria - chronic condom cath. Will follow cx results. Abx as above. CT did show nonobstructing stones. transaminitis - hep panel pending. Will follow, thank you.
--- NOTE | 2018-06-29 13:08 | CASEMGMT ---
RN CM Assessment Presentation: cellulitis, UTI Intro role of CM to patient's in room. Pt with history of MS. PCP: [facility] Preferred Pharmacy: For short term or new prescription, [facility]. Pt has appt @ [facility] on Friday for other medications. Insurance: [facility] A/B and [place] benefits. Prescription Benefit: yes LNOK: Julia Living Arrangements: Lives with who cares for pt. Pt is non ambulatory, assists with all care needs. DME: hospital bed, motorized wheelchair, [place] lift. HHS: Per , pt is eligible for home health services, however she states she does not need any of these now. Per , they are able to manage care at home. Transportation: drives DC PLAN: Home on discharge. EDUARDA DUMONT let know cm is available if concerns arise for dc planning.
[2018-06-29] MEDS: Fluconazole Suspension 40 MG/ML 35 ML Bottle 200 MG GT (15:06)
--- NOTE | 2018-06-29 15:50 | NURSING ---
left message for updated on infectious dx added antifungal
--- NOTE | 2018-06-29 16:21 | CHAPLAIN ---
Type of Pastoral Visit _x__ Initial Visit ___ Follow-up Visit ___ On-call Visit ___ General Patient Visit ___ Spiritual Assessment ___ Family Conference ___ Bereavement ___ Rapid Response ___ Code Blue ___ Other (describe below) Pastoral Care Referral From _x__ Patient ___ Family ___ Nurse ___ Physician ___ Cell Assembly Pinner ___ Control Clerk Head ___ Other (describe below) Sacrament/Intervention ___ Active listening ___ Anointing ___ Orthodoxy ___ Bereavement ___ Communion ___ Dainne exploration ___ ___ Life review ___ Prayer ___ Reconciliation ___ Sacrament of Sick ___ Supportive presence ___ Wedding ___ Other (describe below) Pastoral Comments left a card as patient is sleeping
[2018-06-29] MEDS: Baclofen 10 MG Tablet GT (23:18)
[2018-06-29] MEDS: Mirtazapine 15 MG Tablet 22.5 MG GT (23:18)
[2018-06-29] MEDS: Doxazosin 1 MG Tablet GT (23:18)
[2018-06-29] MEDS: clonazePAM 1 MG Tablet GT (23:30)
[2018-06-29 23:51] LABS: Bedside Glucose 149 mg/dL (70-110)
[2018-06-30 02:49] VITALS: PULSE 83
[2018-06-30] MEDS: 0.9% Normal Saline 1,000 ML 125 ML IV ×2 (03:04→11:10)
[2018-06-30 03:37] LABS: Absolute Lymphocyte Count 0.84 X10^3/ul (0.83-4.51); Absolute Neutrophil Count 6.7 X10^3/uL (2.0-7.7); Basophil# 0.02 X10^3/uL; Basophil% 0.2 % (0-1); Eosinophil# 0.05 X10^3/uL; Eosinophils% 0.6 % (0-5); Hematocrit 34.4 % (40-54); Hemoglobin 10.9 g/dl (13.0-16.5); Lymphocyte # 0.84 X10^3/ul (4.0); Lymphocyte % 10.2 % (19-41); Mean Corp Hgb Conc 31.7 g/gl (32-36); Mean Corpuscular Volume 94.8 fL (80-94); Monocyte# 0.59 X10^3/uL; Monocyte% 7.2 % (0-10); Neutrophil # 6.72 X10^3/uL (2.7-7.7); Neutrophil % 81.7 % (47-70); Platelet Count 150 K/mm3 (150-450); RBC Distribution Width CV 15.8 % (11.6-14.6); RBC Distribution Width SD 52.5 fl (35.1-43.9); Red Blood Count 3.63 M/mm3 (4.6-6.2); White Blood Count 8.2 K/mm3 (4.4-11.0)
[2018-06-30 03:40] LABS: POSITIVE COUNT NO; POSITIVE DIFFERENTIAL NO; POSITIVE MORPHOLOGY NO
[2018-06-30 04:00] VITALS: BP 115/61; PULSE 83; RESP 20; TEMP 36.7; O2SAT 96
[2018-06-30 04:18] LABS: Vancomycin, Trough Level 4.4 ug/mL (5.0-15.0)
[2018-06-30 04:20] LABS: Anion Gap 7 (5-15); BUN 12 mg/dL (7-18); BUN/Creat Ratio 38.1 RATIO (10-20); Chloride 112 mmol/L (98-107); Creatinine, Serum 0.32 mg/dL (0.70-1.30); EST Glomerular Filtration Rate 298 mL/min (>60); Est Glom Filt Rate - Afr Amer 361 mL/min (>60); Estimated Creatinine Clearance 51.48 ml/min; Glucose 156 mg/dL (74-106); Potassium 3.8 mmol/L (3.5-5.1); Sodium Level 145 mmol/L (136-145)
[2018-06-30] MEDS: Vancomycin IV 1,000 MG/200 ML BAG 200 MG IV (04:52)
--- NOTE | 2018-06-30 05:24 | PCM.RX.CS ---
Consult Pharmacy has been consulted to manage selected antiobiotic: Vancomycin Type of Consult: Follow-up Suspected Infection: Sepsis Labs: Sodium 145 mmol/L (136-145) 06/30/18 03:28 Potassium 3.8 mmol/L (3.5-5.1) 06/30/18 03:28 Chloride 112 mmol/L (98-107) H 06/30/18 03:28 Carbon Dioxide 26.0 mmol/L (21.0-32.0) 06/30/18 03:28 Anion Gap 7 (5-15) 06/30/18 03:28 BUN 12 mg/dL (7-18) 06/30/18 03:28 Creatinine 0.32 mg/dL (0.70-1.30) L 06/30/18 03:28 Est GFR (MDRD) Af Amer 361 mL/min (>60) 06/30/18 03:28 Est GFR (MDRD) Non-Af 298 mL/min (>60) 06/30/18 03:28 BUN/Creatinine Ratio 38.1 RATIO (10-20) H 06/30/18 03:28 Glucose 156 mg/dL (74-106) H 06/30/18 03:28 Vancomycin Trough 4.4 ug/mL (5.0-15.0) L 06/30/18 03:28 Microbiology: Microbiology 06/28/18 11:00 Implant - No Site/Description Given Gram Stain - Final 06/28/18 11:00 Implant - No Site/Description Given Wound Culture - Preliminary Staphylococcus aureus Presumptive C albicans 06/28/18 03:35 Urine Catheter - Catheter Urine Culture - Preliminary Gram negative maxime Goal Trough: 10-15 mcg/mL Pharmacy Plan for Drug Dosing: Pharmacy Service will continue to monitor and adjust dosing as required. Medications Vancomycin HCl 1,250 mg/ (Sodium Chloride) 275 mls @ 167 mls/hr IV Q12H JUSTINO TROUGH 4.4 INCREASE TO 1250MG Q12H RECHECK TROUGH 07/03 @ 0400 Follow-Up Labs: Trough Vancomycin Labs to be done on [date and time ordered]: 07/03@0400
[2018-06-30] MEDS: Piperacil/Tazobactam 3.375 GM/50 ML ML IV (06:41)
[2018-06-30] MEDS: Jevity 1.5. 1,000 ML Bottle 500 ML GT ×2 (06:41→10:00)
[2018-06-30] MEDS: 0.9% NaCl Peripheral Flush Adult/Peds IV (06:42)
[2018-06-30 07:07] LABS: HEPATITIS B SURFACE AG Negative (Negative); Hepatitis A AB, Total Negative (Negative); Hepatitis A IgM Antibody Negative (Negative); Hepatitis B Core AB IgM Negative (Negative); Hepatitis B Core Ab Total Negative (Negative); Hepatitis C Ab 0.1 s/co ratio (0.0-0.9)
[2018-06-30 07:15] LABS: Bedside Glucose 158 mg/dL (70-110)
[2018-06-30 07:29] VITALS: PULSE 85
[2018-06-30 07:41] VITALS: O2SAT 95
--- NOTE | 2018-06-30 09:00 | PCM.PN.SRG ---
Patient Problems: Active and Suspected Problems Cellulitis (Acute) UTI (urinary tract infection) (Acute) Sepsis (Acute) Subjective: Patient evaluated resting comfortably in bed. He denies abdominal pain/discomfort unless palpated. Very small area of drainage noted at the lateral end of the pump incision. - Physical Exam General: Alert, Cooperative Abdomen: Soft, - - Incision- lateral aspect of the incision very small drainage from the incision site. Bandage over top. Faint erythema. PEG tube intact with dressing in place. No erythema noted. Vital Signs Temp Pulse Resp BP Pulse Ox 98.0 F 85 20 H 115/61 95 06/30/18 04:00 06/30/18 07:29 06/30/18 04:00 06/30/18 04:00 06/30/18 07:41 Oxygen Delivery Method Room Air Weight: 115 lb 1.301 oz Body Mass Index (BMI) 20.3 Intake and Output for Last 24 Hours 06/28/18 06/29/18 06/30/18 23:59 23:59 23:59 Intake Total 3392 / 3392 4415.9 / 4415.9 699 / 699 Output Total 851 / 851 850 / 850 275 / 275 Balance 2541 / 2541 3565.9 / 3565.9 424 / 424 Microbiology Past 72 Hours 06/28/18 03:35 Urine Culture - Final Urine Catheter - Catheter Providencia stuartii 06/28/18 11:00 Gram Stain - Final Implant - No Site/Description Given Wound Culture - Preliminary Staphylococcus aureus Presumptive C albicans Laboratory Tests Past 24 Hrs 06/30/18 06/30/18 06/30/18 03:28 03:28 03:28 WBC 8.2 RBC 3.63 L Hgb 10.9 L Hct 34.4 L MCV 94.8 H MCH 30.0 MCHC 31.7 L RDW 15.8 H RDW Differential 52.5 H Plt Count 150 MPV 13.0 H Immature Gran % (Auto) 0.100 Neut % (Auto) 81.7 H Lymph % (Auto) 10.2 L [place] % (Auto) 7.2 Eos % (Auto) 0.6 Baso % (Auto) 0.2 Absolute Neuts (auto) 6.7 Absolute Lymphs (auto) 0.84 Total Counted Not Reportable Sodium 145 Potassium 3.8 Chloride 112 H Carbon Dioxide 26.0 Anion Gap 7 BUN 12 Creatinine 0.32 L Estim Creat Clear Calc 51.48 Est GFR (MDRD) Af Amer 361 Est GFR (MDRD) Non-Af 298 BUN/Creatinine Ratio 38.1 H Glucose 156 H Calcium 7.0 L Vancomycin Trough 4.4 L POC Glucose 06/30/18 06/29/18 06:59 23:39 POC Glucose 158 H 149 H Medical Necessity - Tobacco Use Smoking Status: Never smoker Tobacco Use: Non-smoker Assessment/Plan All Active Problems Cellulitis (Acute) UTI (urinary tract infection) (Acute) Sepsis (Acute) Rectal bleeding (Acute) Colitis (Acute) I am following this patient in conjunction with Dr. Gasca. Discussed patient with Dr. Gasca No surgical intervention at this time Implant culture was from the PEG tube site per nursing staff yesterday morning. Cultures from urine and PEG tube returned as Staph aureus, C Albicans and providencia stuartii. ID on the case. [facility] We will continue to monitor this patient Code Visit Inpatient E&M: [id number] [facility] Hosp L1
[2018-06-30 10:00] VITALS: BP 123/62; PULSE 85; RESP 18; TEMP 37.2; O2SAT 95
[2018-06-30] MEDS: Enoxaparin 30 MG/0.3 ML Syringe SC (10:10)
[2018-06-30] MEDS: Calcium Carb/Vitamin D 1 TABLET Tablet GT (10:10)
--- NOTE | 2018-06-30 10:12 | PCM.PN.ID ---
Patient Problems: Active and Suspected Problems Cellulitis (Acute) UTI (urinary tract infection) (Acute) Sepsis (Acute) Subjective: Feeling ok, abd less red, no fever. - Physical Exam General: Alert, Cooperative, No apparent distress Lungs: Clear to auscultation, Normal air movement Cardiovascular: Regular rate, Regular Rhythm Abdomen: Soft, Non Tender, Non-Distended, - - peg in place, minimal drainage around tube Skin: Incision - RLQ pump incision less red, no drainage Vital Signs Temp Pulse Resp BP Pulse Ox 98.0 F 85 20 H 115/61 95 06/30/18 04:00 06/30/18 07:29 06/30/18 04:00 06/30/18 04:00 06/30/18 07:41 Oxygen Delivery Method Room Air Weight: 52.2 kg Body Mass Index (BMI) 20.3 Intake and Output for Last 24 Hours 06/28/18 06/29/18 06/30/18 23:59 23:59 23:59 Intake Total 3392 / 3392 4415.9 / 4415.9 699 / 699 Output Total 851 / 851 850 / 850 275 / 275 Balance 2541 / 2541 3565.9 / 3565.9 424 / 424 Microbiology Past 72 Hours 06/28/18 03:35 Urine Culture - Final Urine Catheter - Catheter Providencia stuartii 06/28/18 11:00 Gram Stain - Final Implant - No Site/Description Given Wound Culture - Preliminary Staphylococcus aureus Presumptive C albicans Laboratory Tests Past 24 Hrs 06/30/18 06/30/18 06/30/18 03:28 03:28 03:28 WBC 8.2 RBC 3.63 L Hgb 10.9 L Hct 34.4 L MCV 94.8 H MCH 30.0 MCHC 31.7 L RDW 15.8 H RDW Differential 52.5 H Plt Count 150 MPV 13.0 H Immature Gran % (Auto) 0.100 Neut % (Auto) 81.7 H Lymph % (Auto) 10.2 L [place] % (Auto) 7.2 Eos % (Auto) 0.6 Baso % (Auto) 0.2 Absolute Neuts (auto) 6.7 Absolute Lymphs (auto) 0.84 Total Counted Not Reportable Sodium 145 Potassium 3.8 Chloride 112 H Carbon Dioxide 26.0 Anion Gap 7 BUN 12 Creatinine 0.32 L Estim Creat Clear Calc 51.48 Est GFR (MDRD) Af Amer 361 Est GFR (MDRD) Non-Af 298 BUN/Creatinine Ratio 38.1 H Glucose 156 H Calcium 7.0 L Vancomycin Trough 4.4 L POC Glucose 06/30/18 06/29/18 06:59 23:39 POC Glucose 158 H 149 H Medical Necessity - Tobacco Use Smoking Status: Never smoker Tobacco Use: Non-smoker Route of nutrition/ use of supplements: [] Nutritional Intake: [] IV Site: [] Hoyt Catheter: [] - Assessment/Plan Antibiotics: [] Assessment/Plan: [] Active and Suspected Problems Cellulitis (Acute) UTI (urinary tract infection) (Acute) Sepsis (Acute) Surgical site infection after replacement of RLQ baclofen pump - appears to be improving. Mild fever on presentation with wbc of 12. Staph aureus pcr was neg. Wound cx now showing staph aureus and yeast but may have been collected from PEG site. Has been on vanc/zosyn, given dose of fluconazole yesterday. Ok for discharge on 7 more days of bactrim and keflex via PEG with outpt surgical followup. providencia bacteruria - chronic condom cath. Abx as above. CT did show nonobstructing stones. transaminitis - hep panel pending. Will follow, d/w primary team
--- NOTE | 2018-06-30 11:12 | DCINST_ITS ---
- Discharge Diagnoses Current Active Problems: Current Active and Chronic Problems Cellulitis (Acute) UTI (urinary tract infection) (Acute) Sepsis (Acute) HTN (hypertension) (Chronic) HLD (hyperlipidemia) (Chronic) Anxiety and depression (Chronic) Malnutrition (Chronic) You will use the following diet at home:: Other - Jevity via PEG TID. NPO otherwise. Call your doctor if your incision/area has: Continuous Slow Oozing, Sudden Increased Bleeding, Increased Pain/ Swelling Call your doctor if you observe: Fever of 101 or Higher Catheter: Hoyt to large bag Allergies/Adverse Reactions: Allergies No Known Allergies Allergy (Verified 06/28/18 02:30) Medications to take at Discharge Baclofen Pump CONT 06/23/13 Baclofen [Lioresal] 5 mg GT DAILY PRN 06/23/13 Baclofen [Lioresal] 10 mg GT QHS 06/23/13 Calcium Carbonate/Vitamin D3 [Calcium 600-Vit D3 400 Tablet] 1 each GT DAILY 06/23/13 Clonazepam [Klonopin] 1 mg GT QHS 06/23/13 Rosuvastatin Calcium [Crestor] 0.5 mg GT QODAY 06/23/13 Mirtazapine 22.5 mg GT QHS 10/08/15 Acetaminophen [Tylenol] 325 mg PO 06/28/18 Bacitracin Ointment 1 applic TOPICAL TID 06/28/18 Chlorpromazine HCl 10 mg GT TID PRN 06/28/18 Cholecalciferol (VIT D3) [Vitamin D3] 1,000 unit GT DAILY 06/28/18 Docusate Sodium/Benzocaine [Docusol Plus Mini-Enema] 1 each RC 06/28/18 Doxazosin Mesylate [Cardura] 1 mg GT QHS 06/28/18 Lactose-Reduced Food/Fiber [Jevity 1.5 Reuben Liquid] 500 ml GT TID 06/28/18 Nutrit Supp/Inulin/Fos/Fiber [Fibersource Hn Liquid] 500 ml GT TID 06/28/18 Nystatin Powder [Mycostatin Powder] 1 applic TOPICAL BID 06/28/18 Ranitidine [Zantac Syrup] 75 mg GT QHS 06/28/18 Cephalexin Suspension [Keflex Suspension] 500 mg PO TID 7 Days #21 po.syringe 06/30/18 Smz/Tpm Suspension [Bactrim Suspension] 20 ml GT BID #14 dose 06/30/18 The following prescriptions were given: Smz/Tpm Suspension [Bactrim Suspension] 20 ml GT BID #14 dose Cephalexin Suspension [Keflex Suspension] 500 mg PO TID 7 Days #21 po.syringe Primary Care Physician: [facility] [Primary Care Provider] - Within 2 Weeks Test Results: Test results from this visit will be discussed in further detail at your follow- up appointment, if applicable. Proposed Discharge Date: 06/30/18
--- NOTE | 2018-06-30 11:12 | PCM.DC.SUM ---
Discharge Date and Diagnosis - Problem List Patient Problems: Active and Suspected Problems Cellulitis (Acute) UTI (urinary tract infection) (Acute) Sepsis (Acute) Date of Admission: 06/28/18 Date of Discharge: 06/30/18 - Primary Discharge Diagnosis Active and Suspected Problems Cellulitis (Acute) UTI (urinary tract infection) (Acute) Sepsis (Acute) - Secondary Discharge Diagnosis Chronic Problems HTN (hypertension) (Chronic) HLD (hyperlipidemia) (Chronic) Anxiety and depression (Chronic) Malnutrition (Chronic) Multiple sclerosis (Chronic) Hospital Course and Treatment Imaging Results: Clinical Impression(s) from Imaging Studies Chest X-Ray 06/28/18 02:40 IMPRESSION: No acute findings in the lungs. Slightly elevated right hemidiaphragm Electronically Signed: London Morrow MD at 3:36 EST Tel , Service support , Abdomen/Pelvis CT 06/28/18 05:25 Consultations 06/28/18 07:50 Consult: Onc/Wound/cvir tech Routine Comment: Reason for Consult:: Bilateral Buttocks Pressure Injuries Tae Gasca MD: General Surgery Ori Rodgers MD: infectious disease. Operations: None Procedures: None Summary of Care Provided: The patient is a 67 year old M presents with fever and chills. Found to have erythema overlying site of his recent baclofen pump basement. Additionally found to have an abnormal urinalysis. Wound culture, from the implant site, presumably though it may actually been from the PEG tube site, showed staph aureus and a C albicans. Erythema has completely resolved today. Patient will be treated empirically with Bactrim. Patient's a urine culture showed Providencia stuartii and we will see if cephalexin. Patient was seen in consultation by Dr. Gasca, general surgery, who did not feel that there is any active infection amongst the implant site. Patient did have a CAT scan that she did not show any abscess but did show either a phlegmon or postoperative hematoma. Patient will need to follow-up with the individual who placed this for routine follow-up to ensure improvement. Patient has progressive MS and requires sourcing assistant with activities of daily living. Patient and his have declined home care services. So patient will be discharged home in stable condition. [] Patient Problems: Active and Suspected Problems Cellulitis (Acute) UTI (urinary tract infection) (Acute) Sepsis (Acute) - Physical Exam General: Alert, Cooperative, No apparent distress HEENT: Atraumatic, Normocephalic Oral: Moist Mucosa, No Gingival or Mucosal Lesions/ Ulcerations Neck: No Nodes, Thyroid Normal Size and Texture Lungs: Clear to auscultation, Normal air movement, No rhonchi, No wheeze Cardiovascular: Regular rate, Regular Rhythm, Normal S1, Normal S2, No murmurs Abdomen: Bowel Sounds Present, Soft, Non Tender, Non-Distended, No Hepato-splenomegaly Skin: - - Resolved erythema overlying the right-sided abdominal baclofen pump. Vital Signs Temp Pulse Resp BP Pulse Ox 36.7 C 85 20 H 115/61 95 06/30/18 04:00 06/30/18 07:29 06/30/18 04:00 06/30/18 04:00 06/30/18 07:41 Oxygen Delivery Method Room Air Weight: 52.2 kg Body Mass Index (BMI) 20.3 Intake and Output for Last 24 Hours 06/28/18 06/29/18 06/30/18 23:59 23:59 23:59 Intake Total 3392 / 3392 4415.9 / 4415.9 699 / 699 Output Total 851 / 851 850 / 850 275 / 275 Balance 2541 / 2541 3565.9 / 3565.9 424 / 424 Microbiology Past 72 Hours 06/28/18 03:35 Urine Culture - Final Urine Catheter - Catheter Providencia stuartii 06/28/18 11:00 Gram Stain - Final Implant - No Site/Description Given Wound Culture - Preliminary Staphylococcus aureus Presumptive C albicans Laboratory Tests Past 24 Hrs 06/30/18 06/30/18 06/30/18 03:28 03:28 03:28 WBC 8.2 RBC 3.63 L Hgb 10.9 L Hct 34.4 L MCV 94.8 H MCH 30.0 MCHC 31.7 L RDW 15.8 H RDW Differential 52.5 H Plt Count 150 MPV 13.0 H Immature Gran % (Auto) 0.100 Neut % (Auto) 81.7 H Lymph % (Auto) 10.2 L [place] % (Auto) 7.2 Eos % (Auto) 0.6 Baso % (Auto) 0.2 Absolute Neuts (auto) 6.7 Absolute Lymphs (auto) 0.84 Total Counted Not Reportable Sodium 145 Potassium 3.8 Chloride 112 H Carbon Dioxide 26.0 Anion Gap 7 BUN 12 Creatinine 0.32 L Estim Creat Clear Calc 51.48 Est GFR (MDRD) Af Amer 361 Est GFR (MDRD) Non-Af 298 BUN/Creatinine Ratio 38.1 H Glucose 156 H Calcium 7.0 L Vancomycin Trough 4.4 L POC Glucose 06/30/18 06/29/18 06:59 23:39 POC Glucose 158 H 149 H Discharge Diet: - - Jevity 3 times daily. N.p.o. Discharge Activity: - - Activity as tolerated Call your doctor if your incision/area has: Continuous Slow Oozing, Sudden Increased Bleeding, Increased Pain/ Swelling Call your doctor if you observe: Fever of 101 or Higher Catheter: Hoyt to large bag Home Medications: Medications to take at Discharge Baclofen Pump CONT 06/23/13 Baclofen [Lioresal] 5 mg GT DAILY PRN 06/23/13 Baclofen [Lioresal] 10 mg GT QHS 06/23/13 Calcium Carbonate/Vitamin D3 [Calcium 600-Vit D3 400 Tablet] 1 each GT DAILY 06/23/13 Clonazepam [Klonopin] 1 mg GT QHS 06/23/13 Rosuvastatin Calcium [Crestor] 0.5 mg GT QODAY 06/23/13 Mirtazapine 22.5 mg GT QHS 10/08/15 Acetaminophen [Tylenol] 325 mg PO 06/28/18 Bacitracin Ointment 1 applic TOPICAL TID 06/28/18 Chlorpromazine HCl 10 mg GT TID PRN 06/28/18 Cholecalciferol (VIT D3) [Vitamin D3] 1,000 unit GT DAILY 06/28/18 Docusate Sodium/Benzocaine [Docusol Plus Mini-Enema] 1 each RC 06/28/18 Doxazosin Mesylate [Cardura] 1 mg GT QHS 06/28/18 Lactose-Reduced Food/Fiber [Jevity 1.5 Reuben Liquid] 500 ml GT TID 06/28/18 Nutrit Supp/Inulin/Fos/Fiber [Fibersource Hn Liquid] 500 ml GT TID 06/28/18 Nystatin Powder [Mycostatin Powder] 1 applic TOPICAL BID 06/28/18 Ranitidine [Zantac Syrup] 75 mg GT QHS 06/28/18 Cephalexin Suspension [Keflex Suspension] 500 mg PO TID 7 Days #21 po.syringe 06/30/18 Smz/Tpm Suspension [Bactrim Suspension] 20 ml GT BID #14 dose 06/30/18 Following Prescrptions Were Given to Patient: Smz/Tpm Suspension [Bactrim Suspension] 20 ml GT BID #14 dose Cephalexin Suspension [Keflex Suspension] 500 mg PO TID 7 Days #21 po.syringe Primary Care Physician: [facility] [Primary Care Provider] - Within 2 Weeks Disposition: Home Minutes spent on discharge:: 32 Patient Condition:: Fair Medical Necessity - Tobacco Use Smoking Status: Never smoker Tobacco Use: Non-smoker Meaningful Use Info Meaningful Use Diagnoses (Choose all that apply): None applicable Code Visit Inpatient E&M: 28975 Disch Hosp
--- NOTE | 2018-06-30 11:16 | DS.PCM_ITS ---
Discharge Date and Diagnosis - Problem List Patient Problems: Active and Suspected Problems Cellulitis (Acute) UTI (urinary tract infection) (Acute) Sepsis (Acute) Date of Admission: 06/28/18 Date of Discharge: 06/30/18 - Primary Discharge Diagnosis Active and Suspected Problems Cellulitis (Acute) UTI (urinary tract infection) (Acute) Sepsis (Acute) - Secondary Discharge Diagnosis Chronic Problems HTN (hypertension) (Chronic) HLD (hyperlipidemia) (Chronic) Anxiety and depression (Chronic) Malnutrition (Chronic) Multiple sclerosis (Chronic) Hospital Course and Treatment Imaging Results: Clinical Impression(s) from Imaging Studies Chest X-Ray 06/28/18 02:40 IMPRESSION: No acute findings in the lungs. Slightly elevated right hemidiaphragm Electronically Signed: London Morrow MD at 3:36 EST Tel , Service support , Abdomen/Pelvis CT 06/28/18 05:25 Consultations 06/28/18 07:50 Consult: Onc/Wound/care transitions nurse Routine Comment: Reason for Consult:: Bilateral Buttocks Pressure Injuries Tae Gasca MD: General Surgery Ori Rodgers MD: infectious disease. Operations: None Procedures: None Summary of Care Provided: The patient is a 67 year old M presents with fever and chills. Found to have erythema overlying site of his recent baclofen pump basement. Additionally found to have an abnormal urinalysis. Wound culture, from the implant site, presumably though it may actually been from the PEG tube site, showed staph aureus and a C albicans. Erythema has completely resolved today. Patient will be treated empirically with Bactrim. Patient's a urine culture showed Providencia stuartii and we will see if cephalexin. Patient was seen in consultation by Dr. Gasca, general surgery, who did not feel that there is any active infection amongst the implant site. Patient did have a CAT scan that she did not show any abscess but did show either a phlegmon or postoperative hematoma. Patient will need to follow-up with the individual who placed this for routine follow-up to ensure improvement. 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 Patient and his have declined home care services. So patient will be discharged home in stable condition. [] Patient Problems: Active and Suspected Problems Cellulitis (Acute) UTI (urinary tract infection) (Acute) Sepsis (Acute) - Physical Exam General: Alert, Cooperative, No apparent distress HEENT: Atraumatic, Normocephalic Oral: Moist Mucosa, No Gingival or Mucosal Lesions/ Ulcerations Neck: No Nodes, Thyroid Normal Size and Texture Lungs: Clear to auscultation, Normal air movement, No rhonchi, No wheeze Cardiovascular: Regular rate, Regular Rhythm, Normal S1, Normal S2, No murmurs Abdomen: Bowel Sounds Present, Soft, Non Tender, Non-Distended, No Hepato- splenomegaly Skin: - - Resolved erythema overlying the right-sided abdominal baclofen pump. Vital Signs Temp Pulse Resp BP Pulse Ox 36.7 C 85 20 H 115/61 95 06/30/18 04:00 06/30/18 07:29 06/30/18 04:00 06/30/18 04:00 06/30/18 07:41 Oxygen Delivery Method Room Air Weight: 52.2 kg Body Mass Index (BMI) 20.3 Intake and Output for Last 24 Hours 06/28/18 06/29/18 06/30/18 23:59 23:59 23:59 Intake Total 3392 / 3392 4415.9 / 4415.9 699 / 699 Output Total 851 / 851 850 / 850 275 / 275 Balance 2541 / 2541 3565.9 / 3565.9 424 / 424 Microbiology Past 72 Hours 06/28/18 03:35 Urine Culture - Final Urine Catheter - Catheter Providencia stuartii 06/28/18 11:00 Gram Stain - Final Implant - No Site/Description Given Wound Culture - Preliminary Staphylococcus aureus Presumptive C albicans Laboratory Tests Past 24 Hrs 06/30/18 06/30/18 06/30/18 03:28 03:28 03:28 WBC 8.2 RBC 3.63 L Hgb 10.9 L Hct 34.4 L MCV 94.8 H MCH 30.0 MCHC 31.7 L RDW 15.8 H RDW Differential 52.5 H Plt Count 150 MPV 13.0 H Immature Gran % (Auto) 0.100 Neut % (Auto) 81.7 H Lymph % (Auto) 10.2 L [place] % (Auto) 7.2 Eos % (Auto) 0.6 Baso % (Auto) 0.2 Absolute Neuts (auto) 6.7 Absolute Lymphs (auto) 0.84 Total Counted Not Reportable Sodium 145 Potassium 3.8 Chloride 112 H Carbon Dioxide 26.0 Anion Gap 7 BUN 12 Creatinine 0.32 L Estim Creat Clear Calc 51.48 Est GFR (MDRD) Af Amer 361 Est GFR (MDRD) Non-Af 298 BUN/Creatinine Ratio 38.1 H Glucose 156 H Calcium 7.0 L Vancomycin Trough 4.4 L POC Glucose 06/30/18 06/29/18 06:59 23:39 POC Glucose 158 H 149 H Discharge Diet: - - Jevity 3 times daily. N.p.o. Discharge Activity: - - Activity as tolerated Call your doctor if your incision/area has: Continuous Slow Oozing, Sudden Increased Bleeding, Increased Pain/ Swelling Call your doctor if you observe: Fever of 101 or Higher Catheter: Hoyt to large bag Home Medications: Medications to take at Discharge Baclofen Pump CONT 06/23/13 Baclofen [Lioresal] 5 mg GT DAILY PRN 06/23/13 Baclofen [Lioresal] 10 mg GT QHS 06/23/13 Calcium Carbonate/Vitamin D3 [Calcium 600-Vit D3 400 Tablet] 1 each GT DAILY 06/23/13 Clonazepam [Klonopin] 1 mg GT QHS 06/23/13 Rosuvastatin Calcium [Crestor] 0.5 mg GT QODAY 06/23/13 Mirtazapine 22.5 mg GT QHS 10/08/15 Acetaminophen [Tylenol] 325 mg PO 06/28/18 Bacitracin Ointment 1 applic TOPICAL TID 06/28/18 Chlorpromazine HCl 10 mg GT TID PRN 06/28/18 Cholecalciferol (VIT D3) [Vitamin D3] 1,000 unit GT DAILY 06/28/18 Docusate Sodium/Benzocaine [Docusol Plus Mini-Enema] 1 each RC 06/28/18 Doxazosin Mesylate [Cardura] 1 mg GT QHS 06/28/18 Lactose-Reduced Food/Fiber [Jevity 1.5 Reuben Liquid] 500 ml GT TID 06/28/18 Nutrit Supp/Inulin/Fos/Fiber [Fibersource Hn Liquid] 500 ml GT TID 06/28/18 Nystatin Powder [Mycostatin Powder] 1 applic TOPICAL BID 06/28/18 Ranitidine [Zantac Syrup] 75 mg GT QHS 06/28/18 Cephalexin Suspension [Keflex Suspension] 500 mg PO TID 7 Days #21 po.syringe 06/30/18 Smz/Tpm Suspension [Bactrim Suspension] 20 ml GT BID #14 dose 06/30/18 Following Prescrptions Were Given to Patient: Smz/Tpm Suspension [Bactrim Suspension] 20 ml GT BID #14 dose Cephalexin Suspension [Keflex Suspension] 500 mg PO TID 7 Days #21 po.syringe Primary Care Physician: [facility],[place] [Primary Care Provider] - Within 2 Weeks Disposition: Home Minutes spent on discharge:: 32 Patient Condition:: Fair Medical Necessity - Tobacco Use Smoking Status: Never smoker Tobacco Use: Non-smoker Meaningful Use Info Meaningful Use Diagnoses (Choose all that apply): None applicable Code Visit Inpatient E&M: 49043 Disch Hosp
[2018-06-30] MEDS: BACITRACIN 15 GM Tube 1 APPLIC TOPICAL (12:48)
[2018-06-30] MEDS: SMZ/TPM Suspension 20 ML GT (14:19)
[2018-06-30] MEDS: Cephalexin Suspension 250 MG/5 ML PO.SYRINGE 500 MG PO (14:27)
[2018-06-30 15:33] VITALS: BP 117/70; PULSE 92; RESP 18; TEMP 36.4; O2SAT 95
[2018-07-01 16:36] LABS: Hep B Surface Antibodies Non Reactive (.)
--- OUTSIDE RECORDS SUMMARY | 2018-08-31 10:57 | XMS RPT_ITS ---
:1950 Author Organization [facility] Care Team Providers Name Role Phone [facility] [place] [facility] Unavailable White, Ana Admitting Unavailable White, Ana Referring Unavailable Elo, Tae Consulting Unavailable Jopperi, Aleksey Attending Unavailable Vishal, Carline Consulting Unavailable White, Ana Admitting Unavailable White, Ana Attending Unavailable White, Ana Referring Unavailable [facility] [place] [facility] Unavailable Elo, Tae Consulting Unavailable White, Ana Consulting Unavailable White, Ana Admitting Unavailable Jopperi, Aleksey Attending Unavailable White, Ana Referring Unavailable [facility] [place] [facility] Unavailable Elo, Tae Consulting Unavailable Vishal, Carline Consulting Unavailable Jopperi, Aleksey Consulting Unavailable White, Ana Admitting Unavailable Renetta Parekh PA-C Attending Unavailable White, Ana Referring Unavailable [facility] [place] [facility] Unavailable Harshaw, Tae Consulting Unavailable Vishal, Carline Consulting Unavailable Jopperi, Aleksey Consulting Unavailable White, Ana Admitting Unavailable Izabella LEONARD-Renetta Plasencia Attending Unavailable White, Ana Referring Unavailable [facility] [place] [facility] Unavailable Elo, Tae Consulting Unavailable Carline Rodgers Consulting Unavailable Tonny, Aleksey Consulting Unavailable , Ana Admitting Unavailable Aleksey Lancaster Attending Unavailable , Ana Referring Unavailable [facility] [place] Primary [facility] Unavailable Tae Gasca Consulting Unavailable Vishal, Carline Consulting Unavailable Tonny, Aleksey Consulting Unavailable PROBLEMS PROBLEMS No Problem Records FoundPROCEDURES PROCEDURES No Procedure Records FoundRESULTS RESULTS EMERGENCY DEPARTMENT Observed: 07/02/2018 Status: F Source: [place] SUMMARY 4:12 PM [facility] [place] Medical Records Department [address] [place] [address] Emergency Department Summary 06/28/18 0429 MR#: [id number] Acct: [id number] Name: CARLINE HANSON Rep #: [id number] : 1950 67 From: Addis Delarosa DO PCP: [place] Status: DIS IN - ER Visit Summary Date of Service: 06/28/18 Chief Complaint: [Fever] History of Present Illness: The patient is a 67 M [presents the emergency department with complaint of a fever that started last evening around 11 PM. Patient began to feel flushed and when he checked his temperature at home it was 102. gave him Tylenol. Patient does have a history of multiple sclerosis. Patient just generally feeling weak. Patient's had a chronic cough. Patient had a baclofen pump [place] the [place] the [place]. Patient denies any abdominal pain. Denies any chest pain. He denies any dysuria. Patient does use a condom catheter at night.] Physical Examination: [HEENT-PERRLA, EOMI. Cranial nerves II through XII grossly intact. TMs clear. Mucous membranes moist. No adenopathy. Cardiovascular-regular rate and rhythm without murmur or ectopy Lungs-clear to auscultation, chest wall stable without crepitus or subcu emphysema Abdomen-normoactive bowel sounds, soft, nontender, no rebound or rigidity, no peritoneal signs. Patient has a baclofen pump noted in the right side of the abdomen with surrounding erythema and warmth noted. No drainage noted from the wound. Extremities-intact 4, normal range of motion, normal pulses, atraumatic] Test Results: [CBC with differential showed a white count 12.4, hemoglobin 16, hematocrit 49, platelets 210. Chemistries unremarkable. LFTs were slightly elevated with an alk phos of 118 ALT of 90 and a AST of 60. Chest x-ray showed nothing acute. Urinalysis was positive for nitrites, 500 leukocyte esterase, 1025 WBCs, and +2 bacteria. Lactate was 1.4.] Emergency Department Course and Treatment: [Patient was started on Unasyn and vancomycin. Blood cultures ordered.] Treatment Plan: [Admit for IV antibiotics] Disposition: [Admit] Impression: [Sepsis UTI Postop wound infection] This note was generated with GigsJ[employer] software. It may contain incorrect words, spelling, and punctuation that were not noted in review of the chart prior to signing ED Disposition - Plan for ED Patient: Chief Complaint: Fever What to do if you have Problems For any increased pain, shortness of breath, bleeding, nausea or vomiting, chest pain, or any unexpected problems, contact your Primary Care Provider. Call [facility] ([phone]) or report to the closest Emergency Room. Call 911 if necessary. 07/02/18 1612 <Electronically signed by Addis Delarosa DO> Date Addis Delarosa DO Cosigner Signature (If Indicated): Date CC: [place] [facility] DISCHARGE SUMMARY Observed: 06/30/2018 Status: F Source: [place] 11:17 AM [facility] [place] [facility] Medical Records Department [address] [place] [address] Discharge Summary 06/30/18 1112 MR#: [id number] Acct: [id number] Name: CARLINE HANSON Abiodun Rep #: [id number] : 1950 67 From: Aleksey Lancaster DO [place]CP: [place] Status: ADM IN Y Location: [place] [address] Discharge Date and Diagnosis - Problem List Patient Problems: Active and Suspected Problems Cellulitis (Acute) UTI (urinary tract infection) (Acute) Sepsis (Acute) Date of Admission: 06/28/18 Date of Discharge: 06/30/18 - Primary Discharge Diagnosis Active and Suspected Problems Cellulitis (Acute) UTI (urinary tract infection) (Acute) Sepsis (Acute) - Secondary Discharge Diagnosis Chronic Problems HTN (hypertension) (Chronic) HLD (hyperlipidemia) (Chronic) Anxiety and depression (Chronic) Malnutrition (Chronic) Multiple sclerosis (Chronic) Hospital Course and Treatment Imaging Results: Clinical Impression(s) from Imaging Studies Chest X-Ray 06/28/18 02:40 IMPRESSION: No acute findings in the lungs. Slightly elevated right hemidiaphragm Electronically Signed: London Morrow MD at 3:36 EST Tel , Service support , Abdomen/Pelvis CT 06/28/18 05:25 Consultations 06/28/18 07:50 Consult: Onc/Wound/hand tufter Routine Comment: Reason for Consult:: Bilateral Buttocks Pressure Injuries Tae Gasca MD: General Surgery Carline Rodgers MD: infectious disease. Operations: None Procedures: None Summary of Care Provided: The patient is a 67 year old M presents with fever and chills. Found to have erythema overlying site of his recent baclofen pump basement. Additionally found to have an abnormal urinalysis. Wound culture, from the implant site, presumably though it may actually been from the PEG tube site, showed staph aureus and a C albicans. Erythema has completely resolved today. Patient will be treated empirically with Bactrim. Patient's a urine culture showed Providencia stuartii and we will see if cephalexin. Patient was seen in consultation by Dr. Gasca, general surgery, who did not feel that there is any active infection amongst the implant site. Patient did have a CAT scan that she did not show any abscess but did show either a phlegmon or postoperative hematoma. Patient will need to follow-up with the individual who placed this for routine follow-up to ensure improvement. Patient has progressive MS and requires commissary assistant with activities of daily living. Patient and his have declined home care services. So patient will be discharged home in stable condition. [] Patient Problems: Active and Suspected Problems Cellulitis (Acute) UTI (urinary tract infection) (Acute) Sepsis (Acute) - Physical Exam General: Alert, Cooperative, No apparent distress HEENT: Atraumatic, Normocephalic Oral: Moist Mucosa, No Gingival or Mucosal Lesions/ Ulcerations Neck: No Nodes, Thyroid Normal Size and Texture Lungs: Clear to auscultation, Normal air movement, No rhonchi, No wheeze Cardiovascular: Regular rate, Regular Rhythm, Normal S1, Normal S2, No murmurs Abdomen: Bowel Sounds Present, Soft, Non Tender, Non-Distended, No Hepato-splenomegaly Skin: - - Resolved erythema overlying the right-sided abdominal baclofen pump. Vital Signs Temp Pulse Resp BP Pulse Ox 36.7 C 85 20 H 115/61 95 06/30/18 04:00 06/30/18 07:29 06/30/18 04:00 06/30/18 04:00 06/30/18 07:41 Oxygen Delivery Method Room Air Weight: 52.2 kg Body Mass Index (BMI) 20.3 Intake and Output for Last 24 Hours Intake Total 3392 / 3392 4415.9 / 4415.9 699 / 699 Output Total 851 / 851 850 / 850 275 / 275 Balance 2541 / 2541 3565.9 / 3565.9 424 / 424 Microbiology Past 72 Hours 06/28/18 03:35 Urine Culture - Final Urine Catheter - Catheter Providencia stuartii Laboratory Tests Past 24 Hrs POC Glucose POC Glucose 158 H 149 H Discharge Diet: - - Jevity 3 times daily. N.p.o. Discharge Activity: - - Activity as tolerated Call your doctor if your incision/area has: Continuous Slow Oozing, Sudden Increased Bleeding, Increased Pain/ Swelling Call your doctor if you observe: Fever of 101 or Higher Catheter: Hoyt to large bag Home Medications: Medications to take at Discharge Baclofen Pump CONT 06/23/13 Baclofen [Lioresal] 5 mg GT DAILY PRN 06/23/13 Baclofen [Lioresal] 10 mg GT QHS 06/23/13 Calcium Carbonate/Vitamin D3 [Calcium 600-Vit D3 400 Tablet] 1 each GT DAILY 06/23/13 Clonazepam [Klonopin] 1 mg GT QHS 06/23/13 Rosuvastatin Calcium [Crestor] 0.5 mg GT QODAY 06/23/13 Mirtazapine 22.5 mg GT QHS 10/08/15 Acetaminophen [Tylenol] 325 mg PO 06/28/18 Bacitracin Ointment 1 applic TOPICAL TID 06/28/18 Chlorpromazine HCl 10 mg GT TID PRN 06/28/18 Cholecalciferol (VIT D3) [Vitamin D3] 1,000 unit GT DAILY 06/28/18 Docusate Sodium/Benzocaine [Docusol Plus Mini-Enema] 1 each RC 06/28/18 Doxazosin Mesylate [Cardura] 1 mg GT QHS 06/28/18 Lactose-Reduced Food/Fiber [Jevity 1.5 Reuben Liquid] 500 ml GT TID 06/28/18 Nutrit Supp/Inulin/Fos/Fiber [Fibersource Hn Liquid] 500 ml GT TID 06/28/18 Nystatin Powder [Mycostatin Powder] 1 applic TOPICAL BID 06/28/18 Ranitidine [Zantac Syrup] 75 mg GT QHS 06/28/18 Cephalexin Suspension [Keflex Suspension] 500 mg PO TID 7 Days #21 po.syringe 06/30/18 Smz/Tpm Suspension [Bactrim Suspension] 20 ml GT BID #14 dose 06/30/18 Following Prescrptions Were Given to Patient: Smz/Tpm Suspension [Bactrim Suspension] 20 ml GT BID #14 dose Cephalexin Suspension [Keflex Suspension] 500 mg PO TID 7 Days #21 po.syringe Primary Care Physician: [facility] [Primary Care Provider] - Within 2 Weeks Disposition: Home Minutes spent on discharge:: 32 Patient Condition:: Fair Medical Necessity - Tobacco Use Smoking Status: Never smoker Tobacco Use: Non-smoker Meaningful Use Info Meaningful Use Diagnoses (Choose all that apply): None applicable Code Visit Inpatient E AND M: 11895 Disch Hosp 06/30/18 1117 <Electronically signed by Aleksey Lancaster DO> Date Aleksey Lancaster DO Cosigner Signature (if applicable): Date CC: [facility]; Aleksey Lancaster DO Signed DISCHARGE INSTRUCTION Observed: 06/30/2018 Status: F Source: [place] 11:12 AM [facility] [place] [facility] Medical Records Department [address] [place] [address] Instructions for Home/Discharge Instructions 06/30/18 1110 MR#: [id number] Acct: [id number] Name: CARLINE HANSON Rep #: [id number] : 1950 67 From: Aleksey Lancaster DO PCP: [facility], [place] Status: ADM IN - Discharge Diagnoses Current Active Problems: Current Active and Chronic Problems Cellulitis (Acute) UTI (urinary tract infection) (Acute) Sepsis (Acute) HTN (hypertension) (Chronic) HLD (hyperlipidemia) (Chronic) Anxiety and depression (Chronic) Malnutrition (Chronic) You will use the following diet at home:: Other - Jevity via PEG TID. NPO otherwise. Call your doctor if your incision/area has: Continuous Slow Oozing, Sudden Increased Bleeding, Increased Pain/ Swelling Call your doctor if you observe: Fever of 101 or Higher Catheter: Hoyt to large bag Allergies/Adverse Reactions: Allergies No Known Allergies Allergy (Verified 06/28/18 02:30) Medications to take at Discharge Baclofen Pump CONT 06/23/13 Baclofen [Lioresal] 5 mg GT DAILY PRN 06/23/13 Baclofen [Lioresal] 10 mg GT QHS 06/23/13 Calcium Carbonate/Vitamin D3 [Calcium 600-Vit D3 400 Tablet] 1 each GT DAILY 06/23/13 Clonazepam [Klonopin] 1 mg GT QHS 06/23/13 Rosuvastatin Calcium [Crestor] 0.5 mg GT QODAY 06/23/13 Mirtazapine 22.5 mg GT QHS 10/08/15 Acetaminophen [Tylenol] 325 mg PO 06/28/18 Bacitracin Ointment 1 applic TOPICAL TID 06/28/18 Chlorpromazine HCl 10 mg GT TID PRN 06/28/18 Cholecalciferol (VIT D3) [Vitamin D3] 1,000 unit GT DAILY 06/28/18 Docusate Sodium/Benzocaine [Docusol Plus Mini-Enema] 1 each RC 06/28/18 Doxazosin Mesylate [Cardura] 1 mg GT QHS 06/28/18 Lactose-Reduced Food/Fiber [Jevity 1.5 Reuben Liquid] 500 ml GT TID 06/28/18 Nutrit Supp/Inulin/Fos/Fiber [Fibersource Hn Liquid] 500 ml GT TID 06/28/18 Nystatin Powder [Mycostatin Powder] 1 applic TOPICAL BID 06/28/18 Ranitidine [Zantac Syrup] 75 mg GT QHS 06/28/18 Cephalexin Suspension [Keflex Suspension] 500 mg PO TID 7 Days #21 po.syringe 06/30/18 Smz/Tpm Suspension [Bactrim Suspension] 20 ml GT BID #14 dose 06/30/18 The following prescriptions were given: Smz/Tpm Suspension [Bactrim Suspension] 20 ml GT BID #14 dose Cephalexin Suspension [Keflex Suspension] 500 mg PO TID 7 Days #21 po.syringe Primary Care Physician: [place] [place] [Primary Care Provider] - Within 2 Weeks Test Results: Test results from this visit will be discussed in further detail at your follow-up appointment, if applicable. Proposed Discharge Date: 06/30/18 06/30/18 1112 <Electronically signed by Aleksey Lancaster DO> Date Aleksey Lancaster DO CC: [facility]; Tae Gasca MD; Carline Rodgers MD Signed BEDSIDE GLUCOSE Collected: 06/30/2018 Status: F Source: [place] 6:59 AM [facility] [place] TYPE CODE TESTS RESULT OUT OF REFERENCE UNITS RANGE LAB L501.080 70-110 mg/dL High BEDSIDE GLU 158 Result Comment: MANAGEMENT OF PATIENT CARE PER NURSING PROTOCOL Performed By: #### L501.080 #### [facility] Point of Care [address] [place] [address] CBC W/DIFF, AUTOMATED Collected: 06/30/2018 Status: F Source: [place] 3:28 AM [facility] [place] TYPE CODE TESTS RESULT OUT OF RANGE REFERENCE UNITS LAB L100.1000 4.4-11.0 K/mm3 Normal WBC 8.2 LAB L100.1200 4.6-6.2 M/mm3 Low RBC 3.63 LAB L100.1300 13.0-16.5 g/dl Low HGB 10.9 LAB L100.1400 40-54 % Low HCT 34.4 LAB L100.1500 80-94 fL High MCV 94.8 LAB L100.1600 27.0-32.0 pg Normal MCH 30.0 LAB L100.1700 32-36 g/gl Low MCHC 31.7 LAB L100.1810 11.6-14.6 % High RDW CV 15.8 LAB L100.1820 35.1-43.9 fl High RDW SD 52.5 LAB L100.1900 150-450 K/mm3 Normal PLT 150 LAB L100.2000 6.2-12.0 fl High MPV 13.0 LAB L100.2100 47-70 % High NEUT% 81.7 LAB L100.2200 19-41 % Low LY% 10.2 LAB L100.2300 0-10 % Normal MONO% 7.2 LAB L100.2400 0-5 % Normal EO% 0.6 LAB L100.2500 0-1 % Normal BASO% 0.2 LAB L100.2550 0.0-0.9 % Normal IM GRAN % 0.100 Result Comment: IG% - Immature Granulocytes (promyelocytes, myelocytes and metamyelocytes) > 1% indicates that a LEFT SHIFT is Present. LAB L100.2620 2.0-7.7 X10 3/uL Normal Absolute Neut 6.7 LAB L100.2720 0.83-4.51 X10 3/ul Normal Absolute Lymph 0.84 Performed By: #### L100.0100 #### [facility] [address] [place], [address] VANCOMYCIN, TROUGH Collected: 06/30/2018 Status: F Source: [place] LEVEL 3:28 AM [facility] [place] Order Comment: Time Medication is to be Given? 0400 TYPE CODE TESTS RESULT OUT OF REFERENCE UNITS RANGE LAB L501.8820 5.0-15.0 ug/mL Low VANCO, TROUGH 4.4 Result Comment: VANCOMYCIN STANDARED DRUG THERAPY TROUGH LEVEL: 5.0 - 15.0 mg/L VANCOMYCIN HIGH INTENSITY THERAPY TROUGH LEVEL: 15.0 - 20.0 mg/L High Intensity therapy recommended for serious life threatening infections include: - Meningitis -Endocarditis -Pneumonia (Ventilator/Healtcare Associated) -Sepsis PLEASE CONTACT PHARMACY SERVICES (#[id number]) FOR INTERPRETATION OF RESULTS. Performed By: #### L501.8820 #### [facility] [address] [place], [address] BASIC METABOLIC Collected: 06/30/2018 Status: F Source: [place] PROFILE (BMP) 3:28 AM [facility] [place] TYPE CODE TESTS RESULT OUT OF RANGE REFERENCE UNITS LAB L501.0100 74-106 mg/dL High GLU 156 Result Comment: Fasting Glucose result greater than or equal to 126 mg/dL suggests DIABETES MELLITUS per A.D.A. criteria. Please note revised GLUCOSE reference range effective 2017. LAB L501.1000 7-18 mg/dL Normal BUN 12 LAB L501.1100 0.70-1.30 mg/dL Low CREAT,SERUM 0.32 Result Comment: The validity of the calculated GFR AND GFRAA in patients over 70 years has not been determined. Clinical correlation is essential. LAB L501.1110 >60 mL/min Normal EST GFR 298 Result Comment: Non- GFR Calc LAB L501.1115 >60 mL/min Normal EST GFR - AA 361 Result Comment: GFR Calc LAB L501.1255 ml/min Normal Estimated CRCL 51.48 LAB L501.1300 10-20 RATIO High BUN/CRE 38.1 LAB L501.2200 8.5-10 mg/dL Low .1 CA 7.0 LAB L501.5300 136-14 mmol/L Normal 5 NA 145 LAB L501.5600 3.5-5. mmol/L Normal 1 K 3.8 LAB L501.5900 98-107 mmol/L High CL 112 LAB L501.6100 21.0-3 mmol/L Normal 2.0 CO2 26.0 LAB L501.6200 5-15 Normal GAP 7 Performed By: #### L500.2500 #### [facility] [address] [place], [address] BEDSIDE GLUCOSE Collected: 06/29/2018 Status: F Source: [place] 11:39 PM [facility] [place] TYPE CODE TESTS RESULT OUT OF REFERENCE UNITS RANGE LAB L501.080 70-110 mg/dL High BEDSIDE GLU 149 Result Comment: MANAGEMENT OF PATIENT CARE PER NURSING PROTOCOL Performed By: #### L501.080 #### [facility] Point of Care [address] [place] [address] CONSULTATION Observed: 06/29/2018 Status: F Source: [place] 12:58 PM [facility] [place] [facility] Medical Records Department [address] [place] [address] Consultation 06/29/18 1247 MR#: [id number] Acct: [id number] Name: CARLINE HANSON Rep #: [id number] : 1950 67 From: Carline Rodgers MD PCP: [place] Status: ADM IN Location: [place] [address] ADDENDUM by Carline Rodgers MD on 06/29/18 at 1258 Has been seen by surgery here, will need followup as outpt with surgeon in [place] who did the procedure. 06/29/18 1258 <Electronically signed by Carline Rodgers MD> Date Carline Rodgers MD cc: [facility]; [facility] Jerez; Tae Gasca MD; Carline Rodgers MD * Signed Problem List (1) Cellulitis Status: Acute Qualifiers: Site of cellulitis: trunk Site of cellulitis of trunk: abdominal wall Qualified Code(s): L03.311 - Cellulitis of abdominal wall Reason for Consult: cellulitis Consulted by: Dr. Lancaster History of Present Illness: The patient is a 67 year old M with MS, chronic condom cath, PEG tube, and baclofen pump who presented with one day of RLQ redness and clear/reddish drainage after pump change 06/19/18. No prior h/o MRSA infection. On 06/26 noticed some increased drainage and redness. No swelling, pain stable. Taken to ED, admitted on vanc/zosyn. Feeling better, pump site less red and decreased drainage. Labs also showed some transaminitis, hep panel sent. UA with mild pyuria, Ucx with heavy growth of GNR. Full ROS performed and neg except as noted above. Additional history obtained from at bedside. - Medical History Past Medical History (Chronic Problems): Chronic Problems HTN (hypertension) (Chronic) HLD (hyperlipidemia) (Chronic) Anxiety and depression (Chronic) Malnutrition (Chronic) Multiple sclerosis (Chronic) Allergies/Adverse Reactions: Allergies No Known Allergies Allergy (Verified 06/28/18 02:30) Home Medications: Ambulatory Orders Medication Instructions Recorded - Social History Tobacco Use: non-smoker Vital Signs Temp Pulse Resp BP Pulse Ox 98.5 F 87 17 114/65 95 06/29/18 10:17 06/29/18 12:33 06/29/18 10:17 06/29/18 10:17 06/29/18 10:17 Oxygen Delivery Method Room Air Weight: 52.2 kg Body Mass Index (BMI) 20.3 Microbiology Past 72 Hours 06/28/18 11:00 Gram Stain - Final Implant - No Site/Description Given Wound Culture - Preliminary Laboratory Tests Past 24 Hrs WBC 10.5 RBC 3.74 L Hgb 11.3 L Hct 35.5 L MCV 94.9 H MCH 30.2 - Other Studies Radiology: [] reviewed Other Studies: [] Route of nutrition/ use of supplements: [] Nutritional Intake: [] IV Site: [] Hoyt Catheter: [] - Physical Exam General: Alert, Oriented x3, Cooperative, No apparent distress HEENT: Atraumatic, PERRLA, EOMI Neck: Supple, No Nodes Lungs: Clear to auscultation, Normal air movement Cardiovascular: Regular rate, Regular Rhythm Abdomen: Soft, Non Tender, Non-Distended Extremities: No edema Skin: - - RLQ pump incision with steristrips, some surrounding erythema and induration, no drainage IV Site: Peripheral, without redness Musculoskeletal: No Tenderness to Palpation of Joints or Extremities Neurological: - - diffuse contractures - Assessment/Plan Antibiotics: [] Assessment/Plan: [] Active and Suspected Problems Cellulitis (Acute) UTI (urinary tract infection) (Acute) Sepsis (Acute) Surgical site infection after replacement of RLQ baclofen pump - appears to be improving. Mild fever on presentation with wbc of 12. Staph aureus pcr was neg. Wound cx now showing staph aureus and yeast. Cont vanc/zosyn for now, will add fluconazole. CT scan did not show any abscess around the pump, but there is inflammation. He is scheduled to see his neurologist on Friday in [place]. I think in order for this infection to completely resolve, will need surgical eval of the pump site but does not appear like he urgently needs to go to the OR for explantation. GNR bacteruria - chronic condom cath. Will follow cx results. Abx as above. CT did show nonobstructing stones. transaminitis - hep panel pending. Will follow, thank you. 06/29/18 1255 <Electronically signed by Carline Rodgers MD> Date Carline Rodgers MD Cosigner Signature (if applicable): Date CC: [facility]; [facility] Jerez; Tae Gasca MD; Carline Rodgers MD Signed COMPREHENSIVE METABOLIC Collected: 06/29/2018 Status: F [facility] [place] [facility] [place] TYPE CODE TESTS RESULT OUT OF RANGE REFERENCE UNITS LAB L501.0100 74-106 mg/dL Normal GLU 87 Result Comment: Please note revised GLUCOSE reference range effective 2017. LAB L501.1000 7-18 mg/dL Normal BUN 13 LAB L501.1100 0.70-1.30 mg/dL Low CREAT,SERUM 0.30 Result Comment: The validity of the calculated GFR AND GFRAA in patients over 70 years has not been determined. Clinical correlation is essential. LAB L501.1110 >60 mL/min Normal EST GFR 319 Result Comment: Non- GFR Calc LAB L501.1115 >60 mL/min Normal EST GFR - AA 386 Result Comment: GFR Calc LAB L501.1255 ml/min Normal Estimated CRCL 51.48 LAB L501.1300 10-20 RATIO High BUN/CRE 43.8 LAB L501.1500 6.4-8. g/dL Low 2 T PROT 4.7 LAB L501.1800 3.2-5. g/dL Low 0 ALB 1.4 LAB L501.1950 2.2-4. g/dL Normal 2 GLOB 3.3 LAB L501.2000 0.9-2. RATIO Low 4 A/G 0.4 LAB L501.2200 8.5-10 mg/dL Low .1 CA 7.2 LAB L501.4100 15-37 U/L High AST 47 LAB L501.4305 45-117 U/L Normal ALK P 94 LAB L501.4405 16-61 U/L High ALT 66 LAB L501.4600 0.20-1 mg/dL Normal .00 T BILI 0.70 LAB L501.5300 136-14 mmol/L Normal 5 NA 144 LAB L501.5600 3.5-5. mmol/L Low 1 K 3.4 LAB L501.5900 98-107 mmol/L High CL 113 LAB L501.6100 21.0-3 mmol/L Normal 2.0 CO2 24.0 LAB L501.6200 5-15 Normal GAP 7 Performed By: #### L500.4050 #### [facility] [address] [place], [address] CBC W/DIFF, AUTOMATED Collected: 06/29/2018 Status: F Source: [place] 4:50 AM [facility] [place] TYPE CODE TESTS RESULT OUT OF RANGE REFERENCE UNITS LAB L100.1000 4.4-11.0 K/mm3 Normal WBC 10.5 LAB L100.1200 4.6-6.2 M/mm3 Low RBC 3.74 LAB L100.1300 13.0-16.5 g/dl Low HGB 11.3 LAB L100.1400 40-54 % Low HCT 35.5 LAB L100.1500 80-94 fL High MCV 94.9 LAB L100.1600 27.0-32.0 pg Normal MCH 30.2 LAB L100.1700 32-36 g/gl Low MCHC 31.8 LAB L100.1810 11.6-14.6 % High RDW CV 16.0 LAB L100.1820 35.1-43.9 fl High RDW SD 54.0 LAB L100.1900 150-450 K/mm3 Low PLT 145 LAB L100.2000 6.2-12.0 fl High MPV 13.2 LAB L100.2100 47-70 % High NEUT% 78.5 LAB L100.2200 19-41 % Low LY% 11.2 LAB L100.2300 0-10 % Normal MONO% 9.7 LAB L100.2400 0-5 % Normal EO% 0.1 LAB L100.2500 0-1 % Normal BASO% 0.2 LAB L100.2550 0.0-0.9 % Normal IM GRAN % 0.300 Result Comment: IG% - Immature Granulocytes (promyelocytes, myelocytes and metamyelocytes) > 1% indicates that a LEFT SHIFT is Present. LAB L100.2620 2.0-7.7 X10 3/uL High Absolute Neut 8.2 LAB L100.2720 0.83-4.51 X10 3/ul Normal Absolute Lymph 1.17 Performed By: #### L100.0100 #### [facility] [address] [place], [place], [id number] HEPATITIS ABC PROFILE Collected: 06/29/2018 Status: F Source: [place] 4:50 AM [facility] Order Comment: OKAY TO DO WITH AM LABS TYPE CODE TESTS RESULT OUT OF RANGE REFERENCE UNITS LAB L3100.0200 Negative Normal HEP A Negative IgM 6734 LAB L3100.0300 Negative Normal HEP A Negative AB,T.6726 LAB L3100.0400 Negative Normal HB Negative SURF AG LAB L3100.0440 Negative Normal HB Negative CORE [id number] LAB L3100.0460 Negative Normal HEP B Negative CORE,TOT LAB L3100.0510 . Normal Hep B Non Reactive Tae AB Result Comment: Non Reactive: Inconsistent with immunity, less than 10 mIU/mL Reactive: Consistent with immunity, greater than 9.9 mIU/mL LAB L3100.0750 0.0-0.9 s/co ratio Normal HCV Ab 0.1 LAB L3100.0765 . Normal COMMENT Comment Result Comment: Non reactive HCV antibody screen is consistent with no HCV infection, unless recent infection is suspected or other evidence exists to indicate HCV infection. Performed at: [facility] [id number] Swing Saw Operator: Ruddy Gutierrez PhD, Phone: [phone] Performed By: #### L3000.0700 #### [facility] (refer to report for specific site) refer to report for address and phone number MRSA WOUND DNA BY Collected: 06/28/2018 Status: F Source: [place] PCR 11:00 AM [facility] Order Comment: Comments: obtain if any discharge from incision occurs TYPE CODE TESTS RESULT OUT OF RANGE REFERENCE UNITS LAB L8200.1100 Negative Normal MRSA Negative RESULT LAB L8200.1150 Negative Normal SA RESULT NEGATIVE Performed By: #### L8200.1075 #### [facility] [address] [place], [place], [id number] Observed: 06/28/2018 Status: F Source: [place] CULTURE, DEEP WOUND 11:00 AM [facility] Interface Comments: peg tube site Order Date: 06/28/18 Comments: From peg tube site Gram Stain Gram Stain 2+ Red Blood Cells 1+ White Blood Cells No organisms seen Wound Culture ORGANISM 1: Staphylococcus aureus Amount Growth Rare ORGANISM 2: Presumptive C albicans Amount Growth 1+ Staphylococcus aureus: REACTION Cefoxitin *NF NEG Doxycline <=0.5 S Daptomycin $$ 0.5 S Clindamycin $$ 0.25 S Inducable Clindamycin Resistan NEG Erythromycin $ >=8 R Gentamicin $ <=0.5 S Levofloxacin $ <=0.12 S Linezolid $$$$ 2 S Moxifloxicin *NF <=0.25 S Oxacillin NF 2 S Tigecycline $$$$ <=0.12 S Rifampin $$ <=0.5 S Tetracycline NF <=1 S Trimethoprim/Sulfametho $ <=10 S Vancomycin $ <=0.5 S (NF) indicates non-formulary drug at [facility]. Approval by Infectious Disease Specialist required before non-formulary drugs may be ordered and/or dispensed. * CLSI guidelines does not recommend testing of cephalosporins. This interpretation is deduced from Beta-lactam/penicillin results. Cult, Anaerobic No anaerobic bacteria isolated. Performed By: #### M100.1500 #### [facility] [address] [place], [place], [address] HISTORY AND PHYSICAL Observed: 06/28/2018 Status: F Source: [place] EXAM 5:32 [facility] REPOSITORY [facility] Medical Records Department [address] [place] [address] History and Physical 06/28/18 0431 MR#: [id number] Acct: [id number] Name: CARLINE HANSON Rep #: [id number] : 1950 67 From: Ana Jerez PCP: [facility], [place] Status: ADM IN Y Location: [place] [address] Problem List (1) Cellulitis Status: Acute Qualifiers: Site of cellulitis: trunk Site of cellulitis of trunk: abdominal wall Qualified Code(s): L03.311 - Cellulitis of abdominal wall (2) UTI (urinary tract infection) Status: Acute Qualifiers: Urinary tract infection type: site unspecified (3) Sepsis Status: Acute Qualifiers: Sepsis type: sepsis due to unspecified organism Qualified Code(s): A41.9 - Sepsis, unspecified organism (4) HTN (hypertension) Status: Chronic Qualifiers: Hypertension type: essential hypertension Qualified Code(s): I10 - Essential (primary) hypertension (5) HLD (hyperlipidemia) Status: Chronic Qualifiers: Hyperlipidemia type: pure hypercholesterolemia Qualified Code(s): E78.00 - Pure hypercholesterolemia, unspecified; E78.0 - Pure hypercholesterolemia (6) Anxiety and depression Status: Chronic (7) Malnutrition Status: Chronic Qualifiers: Malnutrition type: protein-calorie malnutrition Protein- calorie malnutrition severity: severe Qualified Code(s): E43 - Unspecified severe protein- calorie malnutrition (8) Multiple sclerosis Status: Chronic History of Present Illness Date of Admission: 06/28/18 Chief Complaint: Fever, chills The patient is a 67 y/o M w/ PMHx: Multiple Sclerosis w/ Chronic Oropharyngeal Dysphagia on TF via PEG only in addition to condom catheter chronically notable extremity contractures, HTN, HLD, History of GI Bleed, Anxiety and Depression, GERD who presents to the [facility] ED on 06/28/18 with history of onset fever on evening of presentation in addition to general malaise, increased fatigue x 48 hours. The patient had recent 06/19/18 baclofen pump replacement and had follow-up with his surgeon the day prior. There has been serous drainage from the region but no purulent material. In the ED upon evaluation the patient had noted erythema to the lateral side of the pump insertion site region which the and patient had not noticed prior. The patient follows w/ the [place] and an attempt to transition to [facility] was made however there were no beds available. Work-up in the ED included T 98.8, HR 105, BP 130/64, RR 20, 96% on RA, CBC w/ WBC 12.4, Hgb 16, Plts 210 with L shift, CMP w/ BUN/Cr 18/0.44, glucose 127, LA 1.4, AST/ALT 60/90, Alk phos 118, UA w/ positive nitrite, 500 LE, 10-25 WBC, 2+ bacteria, CXR without acute cardiopulmonary findings. In the ED patient administered vanc, unasyn, NS. Past Medical History Past Medical History (Chronic Problems): Chronic Problems HTN (hypertension) (Chronic) HLD (hyperlipidemia) (Chronic) Anxiety and depression (Chronic) Malnutrition (Chronic) Multiple sclerosis (Chronic) Allergies No Known Allergies Allergy (Verified 06/28/18 02:30) Home Medications: Ambulatory Orders Medication Instructions Recorded Surgical History: - - PEG, Baclofen pump with recent replacement, penile implant. Psychiatric History: Anxiety, Depression Lives: Spouse/ Significant Other Smoking Status: Never smoker Tobacco Use: Non-smoker Alcohol: None Drugs: None - *Family History Maternal History Items: Cancer - Mother health aside history of skin CA. Paternal History Items: Heart Disease Review of Systems Constitutional: Reports: Anorexia, Fever, Malaise, Weakness, Fatigue. Denies: Chills, Weight Change HEENT: Denies: Head Aches, Sinus Congestion, Sinus Drainage Cardiovascular: Denies: Chest Pain, Palpitations Respiratory: Denies: Cough, Shortness of breath at rest, Sputum production Gastrointestinal: Reports: Abdominal Pain. Denies: Nausea, Vomiting Genitourinary: Reports: Incontinence. Denies: Dysuria Musculoskeletal: Reports: Back Pain, Joint Pain. Denies: Joint Tenderness Skin: Reports: Skin Changes, Wounds. Denies: Rash Neurological: Reports: Balance problems, Slurred speech, Difficulty swallowing, Focal weakness, - - Spasms, MS. Denies: Numbness, Tingling Psychiatric: Reports: Anxiety, Depression. Denies: Homicidal Ideations, Suicidal Ideations Hematologic/ Lymphatic: Denies: Easy Bruising, Easy Bleeding VTE Information - Inpt Only VTE Present on Admission: No VTE Mechan Device Prophylaxis: SCD's VTE Pharm Prophylaxis ordered?: Yes Patient Problems: Active and Suspected Problems Cellulitis (Acute) UTI (urinary tract infection) (Acute) Sepsis (Acute) Subjective: Seated upright in the ED bed, dysarthria, hoarse voice, notable secretions, all chronic, NAD. Objective: Physical Examination: General: awake, alert, oriented x 3 and cooperative, seated upright inthe ED bed in no apparent distress. Skin: normal color, turgor, no icterus, cyanosis except R upper abdomen recent intrathecal baclofen pump insertion replacement with lateral incision erythema and tenderness palpation of the region. HEENT: AT/NC, EOMI, PERRLA, dry MM, notable secretions with frequently suctioning, no carotid bruits or JVD noted. Lungs: Diminished breath sounds bilaterally, greater bilateral gait bases, mild effort, no rales, ronchi or wheezing. Heart: Regular rate and rhythm; no gallop, rub audible. Abdomen: soft, thin habitus, TTP RUQ w/ recent baclofen pump replacement, PEG in place, ND, mildly hyperactive BS, no HSM. Extremities: no cyanosis, clubbing, notable contractures BL UE > BL LE, muscle wasting. Neurological: patient awake, alert, oriented x 3; cognitive function intact; pupils equally reactive to light and accomodation; cranial nerves II-XII grossly normal, notable contractures upper and lower extremities, notable deficits, strength severely globally decreased. Psychiatric: affect appears flat, fatigued, no acute evidence of depressive or anxiety feelings. - Physical Exam Vital Signs Temp Pulse Resp BP Pulse Ox 99 F 101 H 20 H 119/75 98 06/28/18 04:03 06/28/18 04:03 06/28/18 04:03 06/28/18 04:03 06/28/18 04:03 Oxygen Delivery Method Room Air Weight: 124 lb 12.506 oz Body Mass Index (BMI) 22.1 Laboratory Tests Past 24 Hrs WBC RBC Hgb Hct MCV MCH MCHC RDW RDW Differential Assessment/Plan All Active Problems Cellulitis (Acute) UTI (urinary tract infection) (Acute) Sepsis (Acute) Rectal bleeding (Acute) Colitis (Acute) The patient is a 67 y/o M w/ PMHx: Multiple Sclerosis w/ Chronic Oropharyngeal Dysphagia on TF via PEG only in addition to condom catheter chronically notable extremity contractures, HTN, HLD, History of GI Bleed, Anxiety and Depression, GERD who presents to the [facility] ED on 06/28/18 with history of onset fever on evening of presentation in addition to general malaise, increased fatigue x 48 hours. (1) Acute sepsis secondary to suspected Cellulitis Baclofen Pump Insertion, Possible Abscess consistent with Post-operative Wound Infection and #2 as noted: Will admit to PCU given notable neurological debilities, possible infection intrathecal pump, maintain on IV vanc and zosyn, request ID and surgery consultation, await CT A/P to further assess for possible abscess to the insertion pump insert region, if recurrent discharge from surgical incision will obtain Wound Cx and Wound MRSA PCR, plan repeat CBC in AM, monitor erythema outline with VS checks. Given pump is intrathecal, some concern for possible spinal infection. (2) Acute Urinary Tract Infection: UA upon ED evaluation remarkable, pending UCx, continue IVFs, monitor I/Os, continue BSA secondary to concurrent possible #1 as noted w/ IV Vanc and Zosyn pending sensitivities and speciation. Bld cx x 2 obtained in the ED. (3) Elevated LFTs: Unclear etiology, possible secondary to acute presentation, sepsis, will obtain hepatitis panel, pending imaging as noted. (4) Multiple Sclerosis: Patient notably debilitated w/ chronic oropharyngeal dysphagia on TF via PEG only (500 ml Nestle high fiber (2 cans) TID), condom catheter chronically, notable extremity contractures, frequent OP care and suction, PT, OT, CM consultations, HOB, IS, oral care, positioning, barrier cream. Currently continued on baclofen pump pending continued evaluation as noted #1. (5) Hypertension: Continue home regimen including Cardura, PRN hydralazine. (6) Hyperlipidemia: Continue home statin regimen. (7) Anxiety and Depression: Continue home regimen Klonopin, mirtazapine. (8) Severe Protein-Calorie Malnutrition: Evidenced per habitus, muscle and fat loss, nutrition consulted, continue TFs pending nutrition assessment. (9) GERD: Ranitidine. (10) DVT Prophylaxis: SCDs, lovenox. (11) CODE status: Discussed CODE status at length including difference between FULL code, DNR-CCA and DNR-CC status. Following discussions about the differences in these status, requested DNR-CCA, no intubation status. is HCPOA. Living will is in place. Advanced Care Planning Face to Face Time:16 minutes. Code Visit Inpatient E AND M: 78297 Init Hosp L3 Procedures: 94928 Advncd Care Plan 30 Min 06/28/18 0532 <Electronically signed by Ana Jerez > Date Ana Jerez Cosigner Signature: Date (if applicable) CC: [facility]; Ana Jerez Signed ABDOMEN/PELVIS WITH Observed: 06/28/2018 Status: F Source: [place] CONTRAST 5:25 AM [facility] Imaging Services [address] [place] [id number] Abdomen/Pelvis WITH Contrast MR#: [id number] Acct: [id number] Name: CARLINE HANSON Rep #: [id number] : 1950 M 67 From: Parag Varela MD PCP: [place] [place] Status: ADM IN Study: Abdomen/Pelvis WITH Contrast Date of Exam: 06/28/18 Exam# [id number] Ordering Dr: Ana Jerez STUDY: CT ABDOMEN AND PELVIS WITH CONTRAST REASON FOR EXAM: Male, 67 years old. Baclofen pump insertion. Cellulitis RADIATION DOSAGE (If Supplied By Facility): CTDIvol = ( 11.55 ) mGy, DLP = ( 992.51 ) mGycm TECHNIQUE: Transaxial images were obtained from the dome of the diaphragm to the symphysis pubis without oral contrast. 100 ml of Isovue 300 contrast was administered. Sagittal and coronal images were reconstructed. Individualized dose optimization techniques were used for this CT. COMPARISON: October 08, 2015 CT abdomen pelvis. FINDINGS: Right lower lobe atelectasis as well as airspace disease. Subtle subsegmental atelectasis in the left lower lobe. Coronary vascular calcifications. Low-attenuation foci within the liver possibly hemangiomas or hepatic cyst which can be better characterized with MR examination nonetheless were present on previous study. Wall thickening of the gallbladder seen which appears nondistended however. Gastrostomy tube is noted in place. Bowel gas pattern is nonobstructive and nonspecific. There are likely bilateral Pelvic cysts present similar to previous examination. Nonobstructing stones in the left kidney suspected largest measuring up to 8 mm similar previous exam. Vascular calcifications A right-sided pain pump device noted with overlying soft tissue swelling involving the right anterolateral abdominal wall musculature with edema and heterogeneous fluid possibly hematoma or phlegmonous changes. No retroperitoneal adenopathy. There is likely a penile pump device present however not well characterized on this exam. Uncomplicated colonic diverticulosis. Heterogeneous density in the region of the prostate gland Mild wedging of the thoracic vertebrae. Pain pump device leads are seen entering the spinal canal at approximately L1-L2 interspinous space along the ventral aspect of the spinal canal with its tip terminating along the dorsal aspect of the spinal canal at approximately T10 level. IMPRESSION: Right-sided abdominal wall pain pump device noted with associated heterogeneous ill-defined fluid with edema in the abdominal wall musculature. Differential considerations include resolving hematoma or phlegmonous changes with associated overlying cellulitis. Right lower lobe atelectasis and/or consolidation. Stable appearing cystic structures in the liver likely hemangiomas or hepatic cysts No intraperitoneal fluid collections seen. Subtle radiolucency in the S1 vertebral body which can be assessed with nuclear medicine bone scan on a nonemergent basis Right-sided nephrolithiasis. Electronically Signed: Parag Varlea, at 11:27 EST Tel , Service support , CT/Abdomen/Pelvis WITH Contrast CC: [facility]; Ana Jerez Immigration Consultant: Signed COMPREHENSIVE METABOLIC Collected: 06/28/2018 Status: F Source: [place] PROFIL 3:46 AM [facility] Order Comment: REDRAW. PREVIOUS SPECIMEN WAS REJECTED FOR TESTING DUE TO HEMOLYSIS. SPECIMEN WAS DISCARDED. 06/28/18 0331 Arsh Cruz. TYPE CODE TESTS RESULT OUT OF RANGE REFERENCE UNITS LAB L501.0100 74-106 mg/dL High GLU 127 Result Comment: Fasting Glucose result greater than or equal to 126 mg/dL suggests DIABETES MELLITUS per A.D.A. criteria. Please note revised GLUCOSE reference range effective 2017. LAB L501.1000 7-18 mg/dL Normal BUN 18 LAB L501.1100 0.70-1.30 mg/dL Low CREAT,SERUM 0.44 Result Comment: The validity of the calculated GFR AND GFRAA in patients over 70 years has not been determined. Clinical correlation is essential. LAB L501.1110 >60 mL/min Normal EST GFR 204 Result Comment: Non- GFR Calc LAB L501.1115 >60 mL/min Normal EST GFR - AA 246 Result Comment: GFR Calc LAB L501.1255 ml/min Normal Estimated CRCL 55.81 LAB L501.1300 10-20 RATIO High BUN/CRE 41.1 LAB L501.1500 6.4-8. g/dL Low 2 T PROT 5.9 LAB L501.1800 3.2-5. g/dL Low 0 ALB 1.8 LAB L501.1950 2.2-4. g/dL Normal 2 GLOB 4.1 LAB L501.2000 0.9-2. RATIO Low 4 A/G 0.4 LAB L501.2200 8.5-10 mg/dL Low .1 CA 8.3 LAB L501.4100 15-37 U/L High AST 60 LAB L501.4305 45-117 U/L High ALK P 118 LAB L501.4405 16-61 U/L High ALT 90 LAB L501.4600 0.20-1 mg/dL Normal .00 T BILI 0.50 LAB L501.5300 136-14 mmol/L Normal 5 NA 140 LAB L501.5600 3.5-5. mmol/L Normal 1 K 3.9 LAB L501.5900 98-107 mmol/L Normal CL 105 LAB L501.6100 21.0-3 mmol/L Normal 2.0 CO2 27.0 LAB L501.6200 5-15 Normal GAP 8 Performed By: #### L500.4050 #### [facility] [address] [place], [address] LACTIC ACID Collected: 06/28/2018 Status: F Source: [place] 3:46 AM [facility] Order Comment: REDRAW. PREVIOUS SPECIMEN WAS REJECTED FOR TESTING DUE TO HEMOLYSIS. SPECIMEN WAS DISCARDED. 06/28/18 0331 Arsh Cruz. Yes/No query for Sepsis Lactate Rule Y TYPE CODE TESTS RESULT OUT OF RANGE REFERENCE UNITS LAB L503.6005 0.4-2.0 mmol/L Normal LACTIC ACID 1.4 Performed By: #### L503.6005 #### [facility] [address] [place], [address] PHOSPHORUS Collected: 06/28/2018 Status: F Source: [place] 3:46 AM [facility] TYPE CODE TESTS RESULT OUT OF RANGE REFERENCE UNITS LAB L501.2300 2.5-4.9 mg/dL Normal PHOS 2.7 Performed By: #### L501.2300, L501.5200 #### [facility] [address] [place], [address] MAGNESIUM Collected: 06/28/2018 Status: F Source: [place] 3:46 AM [facility] TYPE CODE TESTS RESULT OUT OF RANGE REFERENCE UNITS LAB L501.5200 1.6-2.6 mg/dL Normal MG 2.1 Performed By: #### L501.2300, L501.5200 #### [facility] [address] [place], [address] Observed: 06/28/2018 Status: F Source: [place] CULTURE, URINE 3:35 AM [facility] Order Date: 06/28/18 Urine Culture ORGANISM 1: Providencia stuartii [place] Count >100,000 Providencia stuartii: REACTION Ampicillin $ R Ampicillin/Sulbactam $ 8 S Cefazolin $ >=64 R Cefepime $ <=0.12 S Ceftazidime *NF <=1 S Ceftriaxone $ <=0.25 S Ciprofloxacin $ >=4 R Ertapenim $$$ <=0.12 S Gentamicin $ R Imipenem *NF 2 S Levofloxacin $ 4 I Nitrofurantoin $ 128 R Piperacillin/Tazobactam $$ <=4 S Tobramycin $ >=16 R Trimethoprim/Sulfametho $ 40 S (NF) indicates non-formulary drug at [facility]. Approval by Infectious Disease Specialist required before non-formulary drugs may be ordered and/or dispensed. Performed By: #### M100.0650 #### [facility] [address] [place], [place], [id number] URINALYSIS, COMPLETE Collected: 06/28/2018 Status: F Source: [place] 3:30 AM [facility] Order Comment: Order Date: 06/28/18 How was Urine Obtained? CONE OPERATOR TO SPECIFY TYPE CODE TESTS RESULT OUT OF RANGE REFERENCE UNITS LAB L400.3000 Yellow COLOR Normal Yellow LAB L400.3050 Clear Normal CLARITY Sl. Cloudy LAB L400.3200 Normal mg/dl Normal GLUCOSE, UR Normal LAB L400.3300 Negative mg/dL Normal BILIRUBIN URINE Negative LAB L400.3400 Negative mg/dl Normal KETONE UR Negative LAB L400.3465 1.002-1.030 Normal SP.GR. DIPSTX 1.010 LAB L400.3550 5.0 - 8.0 pH UR Normal 8.0 LAB L400.3600 Negative mg/dl PROT Normal DIPSTX Negative LAB L400.3700 Normal mg/dl Normal UROBILI Normal LAB L400.3750 Negative High NITRITE UR Positive LAB L400.3780 Negative /ul High 10 OCCULT BLOOD-UR LAB L400.3800 Negative /ul High LEUK ESTERASE 500 LAB L400.4050 0-5 /hpf WBC Normal 10-25 SEEN LAB L400.4100 0-5 /hpf Normal RBC-UA 0-5 SEEN LAB L400.4150 0-5 /hpf SQUAM 0 Normal EPI SEEN LAB L400.4300 None Seen /hpf 2+ Normal BACTERIA LAB L400.4350 <or=2+ /hpf 0 Normal MUCUS, URINE SEEN Performed By: #### L400.0001 #### [facility] [address] [place], [address] Observed: 06/28/2018 Status: F Source: [place] CULTURE, BLOOD (WB) 3:10 AM [facility] BC No growth in 5 days. Performed By: #### M200.1000 #### [facility] [address] [place], [place], [id number] CBC W/DIFF, AUTOMATED Collected: 06/28/2018 Status: F Source: [place] 2:58 AM [facility] TYPE CODE TESTS RESULT OUT OF RANGE REFERENCE UNITS LAB L100.1000 4.4-11.0 K/mm3 High WBC 12.4 LAB L100.1200 4.6-6.2 M/mm3 Normal RBC 5.29 LAB L100.1300 13.0-16.5 g/dl Normal HGB 16.0 LAB L100.1400 40-54 % Normal HCT 49.5 LAB L100.1500 80-94 fL Normal MCV 93.6 LAB L100.1600 27.0-32.0 pg Normal MCH 30.2 LAB L100.1700 32-36 g/gl Normal MCHC 32.3 LAB L100.1810 11.6-14.6 % High RDW CV 15.8 LAB L100.1820 35.1-43.9 fl High RDW SD 53.9 LAB L100.1900 150-450 K/mm3 Normal PLT 210 LAB L100.2000 6.2-12.0 fl High MPV 12.9 LAB L100.2100 47-70 % High NEUT% 82.6 LAB L100.2200 19-41 % Low LY% 9.7 LAB L100.2300 0-10 % Normal MONO% 7.1 LAB L100.2400 0-5 % Normal EO% 0.2 LAB L100.2500 0-1 % Normal BASO% 0.2 LAB L100.2550 0.0-0.9 % Normal IM GRAN % 0.200 Result Comment: IG% - Immature Granulocytes (promyelocytes, myelocytes and metamyelocytes) > 1% indicates that a LEFT SHIFT is Present. LAB L100.2620 2.0-7.7 X10 3/uL High Absolute Neut 10.3 LAB L100.2720 0.83-4.51 X10 3/ul Normal Absolute Lymph 1.21 Performed By: #### L100.0100 #### [facility] [address] [place], [address] Observed: 06/28/2018 Status: F Source: [place] CULTURE, BLOOD (WB) 2:50 AM [facility] BC No growth in 5 days. Performed By: #### M200.1000 #### [facility] [address] [place], [address] CHEST 1 VIEW Observed: 06/28/2018 Status: F Source: [place]INE (PORTABLE) 2:40 AM [facility] Imaging Services [address] [place] [address] Chest 1 View (Portable) MR#: [id number] Acct: [id number] Name: CARLINE HANSON Rep #: [id number] : 1950 M 67 From: London Morrow MD PCP: [facility], [place] Status: REG ER Study: Chest 1 View (Portable) Date of Exam: 06/28/18 Exam# [id number] Ordering Dr: Addis Delarosa DO STUDY: X-RAY CHEST REASON FOR EXAM: Male, 67 years old. Fever TECHNIQUE: 1 view COMPARISON: None. FINDINGS: The lungs are clear. The heart is normal in size. This is slightly elevated right hemidiaphragm.. Normal visualized thoracic spine. Degenerative changes of the right glenohumeral articulation There is no demonstrated abnormality of the visualized soft tissue structures of the upper abdomen. RAD/Chest 1 View (Portable) IMPRESSION: No acute findings in the lungs. Slightly elevated right hemidiaphragm Electronically Signed: London Morrow MD at 3:36 EST Tel , Service support , CC: [facility]; Addis Delarosa DO Immigration Consultant: Signed ALLERGIES ALLERGIES DATE TYPE / CODE NAME / CODE REACTION SEVERITY SOURCE 06/28/2018 Drug No Known Unknown [facility] Allergy/4160 Allergies/F00 Hospital 96168(SNOMED [id number](RXNOR Repository CT) M) ENCOUNTERS ENCOUNTERS ADMIT/DISCHARGE ACCOUNT ADMITTING ENCOUNTER LOCATION SOURCE NUMBER CLASS 06/28/2018/ [id number] White, Ana [place]patient [place] 2 Encounter [facility] ing:PCURoom: Repository [id number]: 1 06/28/2018 [id number] White, Ana Ambulatory BMSBuilding:B [place] 5 [place].[facility] Repository 06/28/2018 [id number] White, Ana Ambulatory BMSBuilding:B [place] 8 [place].[facility] Repository 06/28/2018 [id number] White, Ana Ambulatory BMSBuilding:B [place] 6 MS.CF.[facility] Repository 06/28/2018 [id number] White, Ana Ambulatory BMSBuilding:B [place] 6 [place].CF.[facility] Repository 06/28/2018 [id number] White, Ana Ambulatory BMSBuilding:B [place] 9 [place].[facility]ly [facility] Repository PAYERS PAYERS ENCOUNTER GUARANTOR PAYER SUBSCRIBER SOURCE 06/28/2018 CARLINE L Primary Insurance:IA CARLINE L [place]ine [id number] [facility] HOFFEEDOB: [facility] Number: [id number], [place] [id number] Repository 71433Qhb: [phone]) Date:9609-42-24QDH [phone] () SERVICE [id number] [place], [place] [address]XJ: [phone] X2003 06/28/2018 Secondary CARLINE L [place] Insurance:MEDICARE HOFFEEDOB: [facility] PART A [facility] [id number] Hospital Number: Repository [id number] Date:2018-06-28 06/28/2018 Tertiary CARLINE L [place] Insurance:[facility] MONE HOFFEEDOB: [facility] [address]Nplooj Number: [id number] Hospital [id number] Repository Date:5248-01-10CY [address] [address] [address]UY: 06/28/2018 Tertiary NOT GIVENUNK [place] Insurance:SELF PAY [facility] Number: Effective Repository Date:2018-06-28 06/28/2018 CARLINE L Primary CARLINE L [place] [id number] Insurance:MEDICARE HOFFEEDOB: [facility] PART A [facility] [id number], [place] Number: Repository [id number]: 330 [id number] [phone] () Date:2018-06-28 06/28/2018 Secondary CARLINE L Joseph[place] Insurance:[facility] MONE HOFFEEDOB: [facility] [address]Fscihb Number: [id number] Hospital [id number] Repository Date:9654-93-53HP [address] [place] [address]PH: 06/28/2018 Tertiary Insurance:[facility] HOFFEEDOB: [facility] Number: [id number] Hospital [id number] Repository Date:5729-48-38JOH SERVICE [id number] [place], [place] [address]MJ: [phone] x2003 06/28/2018 Tertiary NOT GIVENUNK [place] Insurance:SELF PAY [facility] Number: Effective Repository Date:2018-06-28 06/28/2018 CARLINE L Primary CARLINE L Josephine [id number] Insurance:MEDICARE HOFFEEDOB: [facility] PART A [facility] [id number], [place] Number: Repository [id number]: 330 [id number] [phone] () Date:2018-06-28 06/28/2018 Secondary CARLINE L [place] Insurance:[facility] HOFFEEDOB: [facility] [address]Nhbsal Number: [id number] Hospital [id number] Repository Date:1574-17-25ON [address] [place] [address]BZ: 06/28/2018 Tertiary Insurance:[facility] HOFFEEDOB: [facility] Number: [id number] Hospital [id number] Repository Date:6245-59-89MRL SERVICE [id number] [place], [place] [address]FK: [phone] X2003 06/28/2018 Tertiary NOT GIVENUNK [place] Insurance:SELF PAY [facility] Number: Effective Repository Date:2018-06-28 06/28/2018 CARLINE L Primary CARLINE L [place] [id number] Insurance:MEDICARE HOFFEEDOB: [facility] PART A [facility] [id number], [place] Number: Repository [id number]: [phone]) [id number] [phone] () Date:2018-06-28 06/28/2018 Secondary CARLINE L [place] Insurance:[facility] MONE HOFFEEDOB: [facility] [address]Gvynkx Number: [id number] Hospital [id number] Repository Date:0015-35-08[address] [place] [address]QJ: 06/28/2018 Tertiary Insurance:[facility] Number: [id number] Hospital [id number] Repository Date:7233-01-74PUM SERVICE [id number] [place], [place] [address]BD: [phone] X2003 06/28/2018 Tertiary NOT GIVENUNK [place] Insurance:SELF PAY [facility] Number: Effective Repository Date:2018-06-28 06/28/2018 CARLINE L Primary Insurance:[place] CARLINE L [place] [id number] [facility] HOFFEEDOB: [facility] Number: [id number], [place] [id number] Repository [address]Khx: [phone]) Date:6783-51-80JTP [phone] () SERVICE [id number] [place], [place] [address]WO: [phone] X2003 06/28/2018 Secondary CARLINE L [place] Insurance:MEDICARE HOFFEEDOB: [facility] PART A [facility] [id number] Hospital Number: Repository [id number] Date:2018-06-28 06/28/2018 Tertiary CARLINE L Josephine Insurance:R MONE HOFFEEDOB: [facility] [address]Hawodh Number: [id number] Hospital [id number] Repository Date:8524-68-35JM [address] [address] [address]RF: 06/28/2018 Tertiary NOT GIVENUNK [place] Insurance:SELF PAY [facility] Number: Effective Repository Date:2018-06-28 06/28/2018 CARLINE L Primary Insurance:[place] CARLINE L [place] [id number] [facility] HOFFEEDOB: [facility] Number: [id number], [place] [id number] Repository [address]Egx: [phone]) Date:6907-64-83SGR [phone] () SERVICE [id number] [place], [place] [address]UP: [phone] X2003 06/28/2018 Secondary CARLINE L [place] Insurance:MEDICARE HOFFEEDOB: [facility] PART A [facility] [id number] Hospital Number: Repository [id number] Date:2018-06-28 06/28/2018 Tertiary CARLINE L [place] Insurance:[facility] MONE HOFFEEDOB: [facility] [address]Puawlc Number: [id number] Hospital [id number] Repository Date:2101-87-00BF [address] [address] [address]QN: 06/28/2018 Tertiary NOT GIVENUNK [place] Insurance:SELF PAY [facility] Number: Effective Repository Date:2018-06-28
== END 2018-06-30 15:54 | disposition home or self-care (01) | DRG 872 ==
LOC: ED 03:11 → PCU 04:34
PROVIDERS: Admitting Provider Family Medicine; Emergency Provider Emergency Medicine; Referring Provider Family Medicine
DX: A41.9 Sepsis, unspecified organism (principal); E46 Unspecified protein-calorie malnutrition; N39.0 Urinary tract infection, site not specified; L03.311 Cellulitis of abdominal wall; G35 Multiple sclerosis; L89.322 Pressure ulcer of left buttock, stage 2; R13.12 Dysphagia, oropharyngeal phase; Z93.1 Gastrostomy status; E78.5 Hyperlipidemia, unspecified; Z66 Do not resuscitate; I10 Essential (primary) hypertension; F41.9 Anxiety disorder, unspecified; F32.9 Major depressive disorder, single episode, unspecified; B96.89 Other specified bacterial agents as the cause of diseases classified elsewhere; Z68.20 Body mass index [BMI] 20.0-20.9, adult; Z97.8 Presence of other specified devices; Z79.899 Other long term (current) drug therapy
CPT/HCPCS: 36415; 71045; 74177; 80048; 80053; 80202; 81001; 82962; 83605; 83735; 84100; 85025; 86704; 86705; 86706; 86708; 86709; 86803; 87040; 87070; 87075; 87077; 87086; 87088; 87186; 87205; 87340; 87640; 97162; 97166; 97530; 97802; 99285; J7030; J7050; Q9967; A4216; J0295; J2405

== ENCOUNTER 2020-07-25 17:35 | Inpatient (IN) | payer OTHER, MEDICARE, SELFPAY ==
[2018-06-28 06:16] VITALS: BMI 20.3
[2020-07-25 17:35] VITALS: BP 128/64; PULSE 95; RESP 20; TEMP 36.6; O2SAT 94
[2020-07-25 17:50] VITALS: O2SAT 94
--- NOTE | 2020-07-25 18:15 | ED.DCSUM_ITS ---
- ER Visit Summary Date of Service: 07/25/20 Chief Complaint: Cough for 2 weeks History of Present Illness: The patient is a 69 M history of severe MS he is now wheelchair-bound, unable to walk and has a paralyzed left arm. He does tube feeds due to his MS. Secondary to trouble swallowing. Patient was admitted to [facility] about 2 weeks ago was discharged and was exposed to Covid reportedly had a Covid test at that time that was negative. He has been coughing since. He denies nausea, vomiting or diarrhea. He has a chronic catheter. Physical Examination: Older male no acute distress. Vital signs stable afebrile pulse ox 94% on room air no signs hypoxia. HEENT exam unremarkable. Neck nontender no JVD no lymphadenopathy. Lungs clear to auscultation bilaterally. Heart regular rhythm rate about 90 no murmur. Abdomen soft nontender normal bowel sounds no peritoneal signs. Extremities get a contracture of the left arm. He is cachectic, atrophied and weak in the right upper and both lower extremities. Neurologically is awake and alert. He has generalized weakness due to his MS. His eyes are open. He will follow commands. Test Results: [] Emergency Department Course and Treatment: Older male with severe MS recently admitted to the [facility] now with a chronic cough. Rule out pneumonia versus Covid versus other etiologies. Reportedly he does not aspirate from testing done in the past. Treatment Plan: [] Disposition: [] Impression: Acute cough History of severe MS and wheelchair-bound. This note was generated with [employer] dictation software. It may contain incorrect words, spelling, and punctuation that were not noted in review of the chart prior to signing ED Disposition - Plan for ED Patient: Referrals: [facility] [Primary Care Provider] -
[2020-07-25] MEDS: 0.9% Normal Saline 1,000 ML 1000 ML IV (19:16)
[2020-07-25 19:28] LABS: Absolute Lymphocyte Count 0.51 X10^3/uL (0.83-4.51); Basophil# 0.01 X10^3/uL; Basophil% 0.1 % (0-1); Eosinophil# 0.03 X10^3/uL; Eosinophils% 0.3 % (0-5); Hematocrit 42.7 % (40-54); Hemoglobin 13.8 g/dL (13.0-16.5); Lymphocyte # 0.51 X10^3/ul (4.0); Lymphocyte % 4.5 % (19-41); Mean Corp Hgb Conc 32.3 g/dL (32-36); Mean Corpuscular Hgb 29.1 pg (27.0-32.0); Mean Corpuscular Volume 90.1 fL (80-94); Mean Platelet Vol. 11.1 fl (6.2-12.0); Monocyte# 0.68 X10^3/uL; Monocyte% 6.1 % (0-10); NRBC Flagged by Analyzer 0 % (0-5); Neutrophil # 9.95 X10^3/uL (2.7-7.7); Neutrophil % 88.7 % (47-70); POSITIVE DIFFERENTIAL YES; Platelet Count 247 K/mm3 (150-450); RBC Distribution Width CV 14.5 % (11.6-14.6); RBC Distribution Width SD 47.4 fl (35.1-43.9); Red Blood Count 4.74 M/mm3 (4.6-6.2); White Blood Count 11.2 K/mm3 (4.4-11.0)
[2020-07-25 19:33] LABS: Differential Indicated SCAN CRITERIA MET
--- NOTE | 2020-07-25 19:35 | RAD_ITS ---
STUDY: X-RAY CHEST REASON FOR EXAM: Male, 69 years old. Cough and congestion; SOB; diarrhea TECHNIQUE: Single frontal view of the chest. COMPARISON: 06/28/2018 FINDINGS: There are low lung volumes. There is persistent elevation of the right hemidiaphragm. There are nonspecific opacities within the right mid and lower lung. Normal size heart. Normal mediastinum and hosea. Normal visualized pulmonary arteries. Normal visualized aortic arch and descending thoracic aorta. Normal visualized thoracic spine. There is degenerative osteoarthritis of the bilateral shoulders. There is no demonstrated abnormality of the visualized soft tissue structures of the upper abdomen. RAD/Chest 1 View (Portable) IMPRESSION: Nonspecific opacities within the right mid and lower lung may be secondary to confluence of shadows however cannot exclude underlying atelectasis and/or pneumonia. Electronically Signed: Marina Kaiser MD at 20:01 EST Tel , Service support ,
[2020-07-25 19:49] LABS: ALB/GLOB Ratio 0.3 RATIO (0.9-2.4); AST(SGOT) 52 U/L (15-37); Alanine Aminotransfer ALT/SGPT 31 U/L (16-61); Albumin, Serum 1.8 g/dL (3.2-5.0); Alkaline Phosphatase 100 U/L (45-117); Anion Gap 0 (5-15); BUN 18 mg/dL (7-18); BUN/Creat Ratio 37.4 RATIO (10-20); Calcium,Total 9.3 mg/dL (8.5-10.1); Chloride 97 mmol/L (98-107); Creatinine, Serum 0.48 mg/dL (0.70-1.30); EST Glomerular Filtration Rate 182 mL/min (>60); Est Glom Filt Rate - Afr Amer 220 mL/min (>60); Estimated Creatinine Clearance 49.12 ml/min; Globulin 5.2 g/dL (2.2-4.2); Glucose 109 mg/dL (74-106); Potassium 6.1 mmol/L (3.5-5.1); Sodium Level 129 mmol/L (136-145)
[2020-07-25 19:55] VITALS: BP 150/63; PULSE 90; RESP 20; TEMP 36.6; O2SAT 94
[2020-07-25 19:55] LABS: Platelet Estimate ADEQUATE (ADEQ)
[2020-07-25 19:56] LABS: Anisocytosis RARE; Macrocytosis RARE; Red Cell Morphology N CHROM NORMAL (NORM C&C)
--- NOTE | 2020-07-25 20:35 | CT_ITS ---
STUDY: CT CHEST WITHOUT CONTRAST REASON FOR EXAM: Male, 69 years old. PNEUMONIA/COUGH/CONGESTION/SOB. History of MS, HTN and HLD RADIATION DOSAGE (If Supplied By Facility): CTDIvol = ( 12.82 ) mGy, DLP = ( 333.07 ) mGycm TECHNIQUE: Transaxial imaging was performed without the administration of intravenous contrast material. Multiplanar coronal and sagittal images were reformatted. Individualized dose optimization techniques were used for this CT. COMPARISON: CT of the abdomen dated 06/28/2018 FINDINGS: There are bilateral pleural effusions associated with consolidation within the lower lobes. There are bilateral patchy and groundglass opacities throughout the lungs as well. There are calcifications of the coronary arteries. Normal mediastinum. Normal hilar regions. Normal unenhanced pulmonary arteries. Normal aorta arch and descending thoracic aorta. There is an increased kyphosis of the thoracic spine. There are degenerative changes of the thoracic spine. The limited images of the upper abdomen demonstrates stable round low-attenuation foci within the visualized liver which may reflect underlying cysts and/or hemangiomas. CT/Chest without Contrast IMPRESSION: Bilateral pleural effusions associated with consolidation within the lower lobes and bilateral patchy and groundglass opacities consistent with multifocal pneumonia; recommend follow-up chest CT in 10-12 weeks is for resolution. Atherosclerosis. Electronically Signed: Marina Kaiser MD at 21:16 EST Tel , Service support ,
[2020-07-25 22:19] VITALS: BP 142/59; PULSE 88; RESP 20; TEMP 36.7; O2SAT 94
[2020-07-25 22:48] VITALS: BP 167/77; PULSE 87; RESP 20; TEMP 36.6; O2SAT 94
--- NOTE | 2020-07-25 22:48 | PCM.HP.STD ---
Problem List (1) Pneumonia Status: Acute (2) Cellulitis Status: Inactive Qualifiers: Site of cellulitis: trunk Site of cellulitis of trunk: abdominal wall Qualified Code(s): L03.311 - Cellulitis of abdominal wall (3) HTN (hypertension) Status: Chronic Qualifiers: Hypertension type: essential hypertension Qualified Code(s): I10 - Essential (primary) hypertension (4) HLD (hyperlipidemia) Status: Chronic Qualifiers: Hyperlipidemia type: pure hypercholesterolemia Qualified Code(s): E78.00 - Pure hypercholesterolemia, unspecified; E78.0 - Pure hypercholesterolemia (5) Anxiety and depression Status: Chronic (6) Malnutrition Status: Chronic Qualifiers: Malnutrition type: protein-calorie malnutrition Protein-calorie malnutrition severity: severe Qualified Code(s): E43 - Unspecified severe protein-calorie malnutrition (7) Multiple sclerosis Status: Chronic (8) Rectal bleeding Status: Inactive (9) Colitis Status: Inactive History of Present Illness Date of Admission: 07/25/20 Chief Complaint: Coughing The patient is a 69 year old M with a significant history of multiple sclerosis and wounds of wheelchair-bound; hypertension; hyperlipidemia who presents emergency department with coughing for about 2 weeks. Associated with his symptoms is noisy breathing. Further patient has diarrhea Patient was at the [facility] where he spent about 2 weeks. He was discharged around July 10 2020. At around July 13 2020 patient's received a call.patient was exposed to COVID-19 virus. Covid test at the [facility] and at a hospital on this presentation was unremarkable. Patient was admitted to the [facility] because of coffee-ground emesis that was attributed to intolerance of previous tube feeding and Radha-Brito tear. Also on that admission patient was treated for UTI and kidney stones. History was taken from patient's as patient has speech impediment likely secondary to multiple sclerosis. Past Medical History Past Medical History (Chronic Problems): Chronic Problems HTN (hypertension) (Chronic) HLD (hyperlipidemia) (Chronic) Anxiety and depression (Chronic) Malnutrition (Chronic) Multiple sclerosis (Chronic) Allergies No Known Allergies Allergy (Verified 07/25/20 17:35) Home Medications: Ambulatory Orders Medication Instructions Recorded Baclofen [Lioresal] 5 mg GT DAILY PRN 06/23/13 Baclofen [Lioresal] 10 mg GT QHS 06/23/13 Calcium Carbonate/Vitamin D3 1 each GT DAILY 06/23/13 [Calcium 600-Vit D3 400 Tablet] Clonazepam [Klonopin] 0.5 mg GT QHS 06/23/13 Nystatin Powder [Mycostatin Powder] 1 applic TOPICAL BID 06/28/18 Albuterol Inhaler [Ventolin Hfa] 1 - 2 puff INHALATION Q4H PRN 07/25/20 Glycopyrrolate 2 mg PO DAILY PRN 07/25/20 Nut.tx.impaired Digestive Fxn 1,000 ml PO 07/25/20 [Peptamen 1.5] Omeprazole/Sodium Bicarbonate 1 ea PO DAILY 07/25/20 [Omeprazole-Bicarb 20-1,680 Pkt] Surgical History: - - PEG, Baclofen pump with recent replacement, penile implant. Psychiatric History: Anxiety, Depression Smoking Status: Never smoker - *Family History Maternal History Items: Cancer - Mother health aside history of skin CA. Paternal History Items: Heart Disease Review of Systems Constitutional: Denies: Chills, Fever, Weight Change HEENT: Denies: Head Aches, Sinus Congestion, Sinus Drainage Cardiovascular: Denies: Chest Pain, Palpitations Respiratory: Reports: Cough, Shortness of Breath. Denies: Sputum production Gastrointestinal: Reports: Diarrhea. Denies: Abdominal Pain, Nausea, Vomiting Genitourinary: Denies: Dysuria Musculoskeletal: Denies: Joint Pain, Joint Tenderness Skin: Denies: Rash, Wounds Neurological: Denies: Numbness, Tingling, Focal weakness Psychiatric: Denies: Anxiety, Depression, Homicidal Ideations, Suicidal Ideations Hematologic/ Lymphatic: Denies: Easy Bruising, Easy Bleeding VTE Information - Inpt Only VTE Present on Admission: No VTE Mechan Device Prophylaxis: None VTE Pharm Prophylaxis ordered?: Yes Patient Problems: Active and Suspected Problems Pneumonia (Acute) - Physical Exam Vitals/I&O's: Vital Signs Temp Pulse Resp BP Pulse Ox 98.0 F 88 20 H 142/59 H 94 07/25/20 22:19 07/25/20 22:19 07/25/20 22:19 07/25/20 22:19 07/25/20 22:19 Oxygen Delivery Method Room Air Weight: 51.256 kg Body Mass Index (BMI) 20.0 Intake and Output for Last 24 Hours 07/23/20 07/24/20 07/25/20 23:59 23:59 23:59 Intake Total 1000.5 / 1000.5 Balance 1000.5 / 1000.5 General: Alert, Oriented x3, Cooperative HEENT: Atraumatic, PERRLA, EOMI, Normocephalic Oral: Dry Mucosa, - - Poor dentition Neck: Supple, No JVD, Negative Carotid Bruits Lungs: Clear to auscultation, Normal air movement Cardiovascular: Regular rate, Normal S1, Normal S2, No murmurs Abdomen: Bowel Sounds Present, Soft, Non Tender Extremities: No edema, Capillary Refill Less than 3 Seconds, - - Contracted left arm and flaccid bilateral legs. Skin: - - Erythema of lateral left ankle Musculoskeletal: No Tenderness to Palpation of Joints or Extremities, Cachexia Neurological: Cranial nerves II-XII grossly intact - Speech difficulty Psych/Mental Status: Normal Affect, Appropriate Microbiology Past 72 Hours 07/25/20 18:47 Mucosa - Nose SARS-CoV-2 Antigen (Rapid) - Final Laboratory Results 07/25/20 19:05: WBC 11.2 H, RBC 4.74, Hgb 13.8, Hct 42.7, MCV 90.1, MCH 29.1, MCHC 32.3, RDW Std Deviation 47.4 H, RDW Coeff of Margo 14.5, Plt Count 247, MPV 11.1, Immature Gran % (Auto) 0.300, Neut % (Auto) 88.7 H, Lymph % (Auto) 4.5 L, [place] % (Auto) 6.1, Eos % (Auto) 0.3, Baso % (Auto) 0.1, Absolute Neuts (auto) 10.0 H, Absolute Lymphs (auto) 0.51 L, Nucleated RBC % 0, Differential Comment SEE COMMENT, Platelet Estimate ADEQUATE, RBC Morphology N CHROM, Anisocytosis RARE, Macrocytosis RARE 07/25/20 19:05: Sodium 129 L, Potassium 6.1 H*, Chloride 97 L, Carbon Dioxide 32.0, Anion Gap 0 L, BUN 18, Creatinine 0.48 L, Estim Creat Clear Calc 49.12, Est GFR (MDRD) Af Amer 220, Est GFR (MDRD) Non-Af 182, BUN/Creatinine Ratio 37.4 H, Glucose 109 H, Calcium 9.3, Total Bilirubin 0.40, AST 52 H, ALT 31, Alkaline Phosphatase 100, Total Protein 7.0, Albumin 1.8 L, Globulin 5.2 H, Albumin/Globulin Ratio 0.3 L 07/25/20 20:37: Potassium 4.0 Current Medications Levofloxacin (Levaquin Iv) 750 mg in 150 mls @ 100 mls/hr IV X1 ONE Stop: 07/25/20 23:22 Sodium Chloride () 250 mls @ 15 mls/hr IV .[id number] PRN PRN Reason: Saline Flush Last Infusion: 07/25/20 22:12 Dose: 0 mls/hr Documented by: Sodium Chloride () 250 mls @ 15 mls/hr IV .[id number] PRN PRN Reason: Additional IVPB Infusion Assessment/Plan All Active Problems Pneumonia (Acute) The patient is a 69 year old M with a significant history of multiple sclerosis; wheelchair-bound; hypertension; hyperlipidemia and who presents to the emergency department with coughing and found to have bilateral pneumonia and bilateral pleural effusion. Bilateral pneumonia with bilateral pleural effusion Gram-positive; gram-negative and likely aspiration pneumonia from multiple sclerosis and tube feeding. Radiologist impression of chest x-ray: Nonspecific opacities within the right mid and lower lung may be secondary to confluence of shadows however cannot exclude underlying atelectasis and/pneumonia. Actual chest x-ray image was independently reviewed and agree radiologist interpretation. Radiologist impression of CT/chest without contrast: Bilateral pleural effusion associated with consolidation within the right lobe and bilateral patchy and groundglass opacities consistent with multifocal pneumonia. Radiologist recommended follow-up chest CT. Actual chest CT was independently visualized. I agree with radiologist interpretation. Started on Zosyn and vancomycin at emergency department continued. Patient with diarrhea. Also [facility] and requesting something for diarrhea. Probiotics ordered. Mucinex ordered MRSA nasal screen ordered Rapid Covid antigen at the emergency department was negative. A PCR Covid ordered. Multiple sclerosis Baclofen continued Pressure ulcer to left lateral heel Foam dressing continued Protein calorie monitor recent BMI of 19.5 Cachectic Home tube feeding continued. Dietitian consult. DVT prophylaxis Subcutaneous Lovenox. Inpatient E&M: 46770 Init Hosp L3
[2020-07-25] MEDS: levoFLOXacin IV 750 MG/150 ML BAG 100 MG IV (22:52)
[2020-07-26] VITALS (8 sets, daily range): BP systolic 104–121; BP diastolic 50–65; PULSE 88–94; RESP 18–22; TEMP 36.5–37.1; O2SAT 93–96; BMI 19.5
[2020-07-26] MEDS: 0.9% Normal Saline 1,000 ML 75 ML IV ×2 (00:58→13:24)
[2020-07-26] MEDS: clonazePAM 0.5 MG Tablet GT ×2 (00:58→21:12)
[2020-07-26] MEDS: Glycopyrrolate 1 MG TABLET 2 MG GT (00:59)
[2020-07-26] MEDS: Baclofen 10 MG Tablet GT ×2 (00:59→21:04)
[2020-07-26] MEDS: guaiFENesin 10 ML UDC (200MG/10ML) GT ×6 (03:41→21:04)
[2020-07-26 05:05] LABS: M R Staph aureus DNA By PCR Negative (Negative); Probe Check PASS; Specimen Processing Control PASS
[2020-07-26] MEDS: 0.9% Saline Lock 10 ML Syringe IV (05:18)
[2020-07-26] MEDS: Albuterol 2.5 MG/3 ML VIAL.NEB. INHALATION (05:44)
[2020-07-26 07:28] LABS: Absolute Lymphocyte Count 0.71 X10^3/uL (0.83-4.51); Absolute Neutrophil Count 7.5 X10^3/uL (2.0-7.7); Basophil# 0.02 X10^3/uL; Basophil% 0.2 % (0-1); Eosinophils% 1.1 % (0-5); Hematocrit 34.9 % (40-54); Hemoglobin 11.2 g/dL (13.0-16.5); Lymphocyte # 0.71 X10^3/ul (4.0); Lymphocyte % 7.9 % (19-41); Mean Corp Hgb Conc 32.1 g/dL (32-36); Mean Corpuscular Hgb 28.7 pg (27.0-32.0); Mean Corpuscular Volume 89.5 fL (80-94); Mean Platelet Vol. 10.7 fl (6.2-12.0); Monocyte# 0.65 X10^3/uL; Monocyte% 7.2 % (0-10); NRBC Flagged by Analyzer 0 % (0-5); Neutrophil # 7.48 X10^3/uL (2.7-7.7); Neutrophil % 83.2 % (47-70); Platelet Count 227 K/mm3 (150-450); RBC Distribution Width CV 14.3 % (11.6-14.6); RBC Distribution Width SD 47.1 fl (35.1-43.9)
[2020-07-26 08:08] LABS: Anion Gap 3 (5-15); BUN 17 mg/dL (7-18); BUN/Creat Ratio 60.1 RATIO (10-20); Chloride 103 mmol/L (98-107); Creatinine, Serum 0.28 mg/dL (0.70-1.30); EST Glomerular Filtration Rate 335 mL/min (>60); Est Glom Filt Rate - Afr Amer 406 mL/min (>60); Estimated Creatinine Clearance 49.35 ml/min; Glucose 82 mg/dL (74-106); Sodium Level 133 mmol/L (136-145)
[2020-07-26] MEDS: Menthol/Lanolin/Calamine/Znox 113 GM Tube 1 APPLIC TOPICAL ×2 (09:13→21:03)
[2020-07-26] MEDS: Nystatin Powder 15gm Bottle 1 APPLIC TOPICAL ×2 (09:13→21:03)
[2020-07-26] MEDS: Lansoprazole 15 MG Capsule.DR GT (09:14)
[2020-07-26] MEDS: Enoxaparin 40 MG/0.4 ML Syringe SC (09:14)
[2020-07-26] MEDS: Baclofen 10 MG Tablet 5 MG GT ×2 (09:14→13:23)
[2020-07-26] MEDS: Calcium Carb/Vitamin D 1 TABLET Tablet GT (09:15)
--- NOTE | 2020-07-26 13:32 | NT.THERAPY_ITS ---
Nutrition Therapy Report - History Nutrition Services has been consulted to:: Manage enteral nutrition Current diet / nutrition support order:: NPO - Anthropometric Measurements Height:: 5 ft 4 in Weight:: 51.5 kg Body Mass Index (BMI):: 19.5 - Relevant Labs Relevant Labs:: WBC 11.2 K/mm3 (4.4-11.0) H 07/25/20 19:05 RBC 3.90 M/mm3 (4.6-6.2) L 07/26/20 07:16 Hgb 11.2 g/dL (13.0-16.5) L 07/26/20 07:16 Hct 34.9 % (40-54) L 07/26/20 07:16 RDW Std Deviation 47.1 fl (35.1-43.9) H 07/26/20 07:16 Neut % (Auto) 83.2 % (47-70) H 07/26/20 07:16 Lymph % (Auto) 7.9 % (19-41) L 07/26/20 07:16 Absolute Neuts (auto) 10.0 X10^3/uL (2.0-7.7) H 07/25/20 19:05 Absolute Lymphs (auto) 0.71 X10^3/uL (0.83-4.51) L 07/26/20 07:16 Sodium 133 mmol/L (136-145) L 07/26/20 07:16 Potassium 6.1 mmol/L (3.5-5.1) H* 07/25/20 19:05 Chloride 97 mmol/L (98-107) L 07/25/20 19:05 Anion Gap 3 (5-15) L 07/26/20 07:16 Creatinine 0.28 mg/dL (0.70-1.30) L 07/26/20 07:16 BUN/Creatinine Ratio 60.1 RATIO (10-20) H 07/26/20 07:16 Glucose 109 mg/dL (74-106) H 07/25/20 19:05 Calcium 8.0 mg/dL (8.5-10.1) L 07/26/20 07:16 AST 52 U/L (15-37) H 07/25/20 19:05 Albumin 1.8 g/dL (3.2-5.0) L 07/25/20 19:05 Globulin 5.2 g/dL (2.2-4.2) H 07/25/20 19:05 Albumin/Globulin Ratio 0.3 RATIO (0.9-2.4) L 07/25/20 19:05 - Assessment Food / Nutrition-Related History:: NPO chronically, pt w/ PEG tube. Spoke w/ Julia at bedside. Hx of many different formulas. Was on Fibersource then switched to Jevity 1.5 (2 cartons, 3x/day w/ 240mL flush each feeding). states Jevity caused emesis, which was why he was in [facility] hospital recently. Formula was changed to Peptamen 1.5 (same dose as Jevity 1.5-2 cartons, 3x/day w/ 240mL flush each feeding). However, states new product delievered to home today was actually Peptamen AF. She states pt has a final installer inspector at the [facility] named Alberto. States pt's wt has been stable, 113-116#. CBW 113.5#. Pt is wheel chair bound. Recently w/ diarrhea at home- per was on antibiotics at [facility]. - Nutrition Diagnosis Problem / Etiology / Signs & Symptoms (PES):: Pt w/ chewing/swallowing difficulties related to hx of dysphagia, multiple sclerosis as evidenced by NPO status, inability to consume adequate nutrition via PO diet. Evidence of Malnutrition Exists:: No - Nutrition Intervention Nutrition Prescription:: Home tube feeds provide roughly 40 calories/kg. states pt has been maintaining wt w/ ~2200 calories/day. Per , team at [facility] would like to see pt gain a little weight. 2817-0371 calories/day (35-40 calories/kg). 77-103 g protein/day (1.5-2.0g/kg). 2000mL/day (1mL/ calorie) - Food / Nutrient Delivery Interventions Summary of nutrition intervention:: Discussed w/ Dr. Jaswant adrian to resume home tube feeds. Nutrition support ordered as / adjusted to:: Peptamen AF (cartons brought from home) via PEG. 2 cartons (500mL) 3x/day (@0700, 1200, 1700) and 1 carton (250mL) HS (@2200) to provide 2100 calories, 133 g protein, and 2381mL total fluid/day. 240mL H2O flush w/ each feeding. Nutrition education provided?: Yes - Discussed orders w/ . - MNT Monitoring Further MNT monitoring and evaluation required?: Yes MNT Follow-up in:: 1-2 days
--- NOTE | 2020-07-26 15:07 | CASEMGMT ---
Dr. Lancaster would like palliative c/s placed for pt at this time. Palliative updated at this time. Kuldeep LERNER CM
--- NOTE | 2020-07-26 16:05 | CASEMGMT ---
EDUARDA DUMONT Assessment: RN JULIA to room at this time. Pt resting in bed. @ bedside. Awake/alert. Pt w/history of MS. Speech is garbled/difficult to understand. Intro role of CM to pt and patient's in room. PCP: Dr Dyer @ [facility]. Preferred Pharmacy: For short term or new prescription, [facility]. Pt goes to [facility] for all other medications. Insurance: [facility] A/B. [facility] MONE, and [facility] benefits. Discussed option for pt to transfer to [facility]. Pt/ both wish for pt to remain @ [facility] and hospitalization to be billed through [facility]. Declination to transfer form signed by , copy made and placed on chart, and original returned to /pt. Form faxed to [place] transfer center at this time. LNOK: Julia Living Arrangements: Lives with who cares for pt. Pt is non ambulatory, assists with all care needs. Pt has a PEG tube and gets 3 bolus feedings/day by . DME: Home is handicap accessible. Pt has a hospital bed, motorized wheelchair, [place] lift. Pt does not have Home O2. If pt requires O2 @ discharge, states she would prefer to [facility], if possible. She states, If it is easier and quicker to get elsewhere, I am okay with that as well and states to have it billed through [facility]. given list of local DME companies, made aware [employer] is affiliated with [facility]. chooses [employer]. Pt/ wish for pt to return home @ discharge. HHS: Discussed options of HHC. declines HHC at this time. Per , they are able to manage care at home. Transportation: drives states that ER MD discussed with them last evening what pt's wishes are re: intubation. She states she and pt have discussed this and that pt states he does wish to be intubated if necessary. Pt voices this to EDUARDA DUMONT at this time as well. Pt states he does not want chest compressions. This RN JULIA notified Dr Lancaster at this time of pt's wishes to be intubated if necessary. DC PLAN: Home on discharge w/spousal support and discharge plans in place.
--- NOTE | 2020-07-26 16:06 | PN_ITS ---
Patient Problems: Active and Suspected Problems Pneumonia (Acute) Subjective: No shortness of breath. Vitals/I&O's: Vital Signs Temp Pulse Resp BP Pulse Ox 36.5 C L 88 18 119/65 96 07/26/20 12:45 07/26/20 12:45 07/26/20 12:45 07/26/20 12:45 07/26/20 12:45 Oxygen Delivery Method Room Air Weight: 51.5 kg Body Mass Index (BMI) 19.5 Intake and Output for Last 24 Hours 07/24/20 07/25/20 07/26/20 23:59 23:59 23:59 Intake Total 1100.5 / 1100.5 1582.5 / 1582.5 Output Total 750 / 750 Balance 1100.5 / 1100.5 832.5 / 832.5 General: Alert, No apparent distress, - - cachectic. afebrile. no respiratory distress. weak voice HEENT: Atraumatic, Normocephalic Oral: Moist Mucosa, No Gingival or Mucosal Lesions/ Ulcerations Neck: No Nodes, Thyroid Normal Size and Texture Lungs: Diminished, - - coarse breath sounds Cardiovascular: Regular rate, Regular Rhythm, Normal S1, Normal S2, No murmurs Abdomen: Bowel Sounds Present, Soft, Non Tender, Non-Distended, No Hepato- splenomegaly Extremities: No edema, No Calf Tenderness Skin: No rashes, No breakdown Musculoskeletal: Cachexia, Muscle Wasting Microbiology Past 72 Hours 07/26/20 03:20 Urine, Random Legionella Antigen - Final 07/26/20 03:20 Urine, Random Streptococcus pneumoniae Antigen (M - Final 07/25/20 18:47 Mucosa - Nose SARS-CoV-2 Antigen (Rapid) - Final Laboratory Results 07/25/20 19:05: WBC 11.2 H, RBC 4.74, Hgb 13.8, Hct 42.7, MCV 90.1, MCH 29.1, MCHC 32.3, RDW Std Deviation 47.4 H, RDW Coeff of Amrgo 14.5, Plt Count 247, MPV 11.1, Immature Gran % (Auto) 0.300, Neut % (Auto) 88.7 H, Lymph % (Auto) 4.5 L, Bell % (Auto) 6.1, Eos % (Auto) 0.3, Baso % (Auto) 0.1, Absolute Neuts (auto) 10.0 H, Absolute Lymphs (auto) 0.51 L, Nucleated RBC % 0, Differential Comment SEE COMMENT, Platelet Estimate ADEQUATE, RBC Morphology N CHROM, Anisocytosis RARE, Macrocytosis RARE 07/25/20 19:05: Sodium 129 L, Potassium 6.1 H*, Chloride 97 L, Carbon Dioxide 32.0, Anion Gap 0 L, BUN 18, Creatinine 0.48 L, Estim Creat Clear Calc 49.12, Est GFR (MDRD) Af Amer 220, Est GFR (MDRD) Non-Af 182, BUN/Creatinine Ratio 37.4 H, Glucose 109 H, Calcium 9.3, Total Bilirubin 0.40, AST 52 H, ALT 31, Alkaline Phosphatase 100, Total Protein 7.0, Albumin 1.8 L, Globulin 5.2 H, Albumin/Globulin Ratio 0.3 L 07/25/20 20:37: Potassium 4.0 07/25/20 23:41: COVID-19 (BASILIO) Not Detected 07/26/20 03:20: MRSA (PCR) Negative 07/26/20 07:16: WBC 9.0, RBC 3.90 L, Hgb 11.2 L, Hct 34.9 L, MCV 89.5, MCH 28.7, MCHC 32.1, RDW Std Deviation 47.1 H, RDW Coeff of Margo 14.3, Plt Count 227, MPV 10.7, Immature Gran % (Auto) 0.400, Neut % (Auto) 83.2 H, Lymph % (Auto) 7.9 L, Bell % (Auto) 7.2, Eos % (Auto) 1.1, Baso % (Auto) 0.2, Absolute Neuts (auto) 7.5, Absolute Lymphs (auto) 0.71 L, Nucleated RBC % 0 07/26/20 07:16: Sodium 133 L, Potassium 4.0, Chloride 103, Carbon Dioxide 27.0, Anion Gap 3 L, BUN 17, Creatinine 0.28 L, Estim Creat Clear Calc 49.35, Est GFR (MDRD) Af Amer 406, Est GFR (MDRD) Non-Af 335, BUN/Creatinine Ratio 60.1 H, Glucose 82, Calcium 8.0 L Current Medications Acetaminophen (Acetaminophen 650 Mg/20 Ml Udc) 650 mg GT Q6H PRN PRN PRN Reason: Pain Score 1-10/Temp > 100.7 F Albuterol Sulfate (Albuterol 2.5 Mg/3 Ml Vial.Neb.) 2.5 mg INHALATION Q2H PRN PRN PRN Reason: SOB/WHEEZING Last Admin: 07/26/20 05:44 Dose: 2.5 mg Documented by: Baclofen (Baclofen 10 Mg Tablet) 5 mg GT DAILY PRN PRN PRN Reason: SPASMS/PAIN Last Admin: 07/26/20 13:23 Dose: 5 mg Documented by: Baclofen (Baclofen 10 Mg Tablet) 10 mg GT QHS [facility] Last Admin: 07/26/20 00:59 Dose: 10 mg Documented by: Baclofen (Baclofen 10 Mg Tablet) 5 mg GT DAILY [facility] Last Admin: 07/26/20 09:14 Dose: 5 mg Documented by: Calamine/Phenol (Menthol/Lanolin/Calamine/Znox 113 Gm Tube) 1 applic TOPICAL BID [facility]; Protocol Last Admin: 07/26/20 09:13 Dose: 1 applicatio Documented by: Calcium/Vitamin D (Calcium Carb/Vitamin D 1 Tablet Tablet) 1 tablet GT DAILY [facility] Last Admin: 07/26/20 09:15 Dose: 1 tablet Documented by: Clonazepam (Clonazepam 0.5 Mg Tablet) 0.5 mg GT QHS [facility] Last Admin: 07/26/20 00:58 Dose: 0.5 mg Documented by: Enoxaparin Sodium (Enoxaparin 40 Mg/0.4 Ml Syringe) 40 mg SC DAILY [facility] Last Admin: 07/26/20 09:14 Dose: 40 mg Documented by: Glycopyrrolate (Glycopyrrolate 1 Mg Tablet) 2 mg GT DAILY PRN PRN PRN Reason: excessive salivation Last Admin: 07/26/20 00:59 Dose: 2 mg Documented by: Guaifenesin (Guaifenesin 10 Ml Udc (200mg/10ml)) 10 ml GT Q4H [facility] Last Admin: 07/26/20 13:23 Dose: 10 ml Documented by: Sodium Chloride () 1,000 mls @ 75 mls/hr IV .[id number] [facility] Last Admin: 07/26/20 13:24 Dose: 75 mls/hr Documented by: Levofloxacin (Levaquin Iv) 750 mg in 150 mls @ 100 mls/hr IV Q24H [facility] Piperacillin Sod/Tazobactam (Sod 3.375 gm/ Sodium Chloride) 50 mls @ 12.5 mls/hr IV Q8 [facility] Last Admin: 07/26/20 13:23 Dose: 12.5 mls/hr Documented by: Lactobacillus Acidophilus (Lactobacillus Acidophilus) 1 tablet GT 4X/DAY [facility] Last Admin: 07/26/20 13:24 Dose: 1 tablet Documented by: Lansoprazole (Lansoprazole 15 Mg Capsule.) 15 mg GT DAILY [facility] Last Admin: 07/26/20 09:14 Dose: 15 mg Documented by: Melatonin (Melatonin 3 Mg Tablet) 3 mg GT QHS PRN PRN PRN Reason: INSOMNIA Nystatin (Nystatin Powder 15gm Bottle) 1 applic TOPICAL BID [facility]; Protocol Last Admin: 07/26/20 09:13 Dose: 1 applicatio Documented by: Ondansetron HCl (Ondansetron 4 Mg/2 Ml Vial) 4 mg IV Q8H PRN PRN PRN Reason: NAUSEA/VOMITING Senna/Docusate Sodium (Senna/Docusate Sodium 1 Tablet) 2 tablet GT BID PRN PRN PRN Reason: Constipation Sodium Chloride (0.9% Saline Lock 10 Ml Syringe) 10 - 40 ml IV UD PRN PRN Reason: SALINE FLUSH Last Admin: 07/26/20 05:18 Dose: 10 ml Documented by: STROKE Vital Signs/Narrative: Vital Signs Temp Pulse Resp BP Pulse Ox 07/26/20 12:45 36.5 C L 88 18 119/65 96 Medical Necessity - Tobacco Use Smoking Status: Never smoker Assessment/Plan All Active Problems Pneumonia (Acute) 1. bilateral pneumonia * suspected aspiration * on vanc and pip/tazo * pulm toilet as able. 2. dysphagia * chronic on tube feeds. * his brought in his home tube feeds: Peptamen AF (cartons brought from home) via PEG. 2 cartons (500mL) 3x/day (@0700, 1200, 1700) and 1 carton (250mL) HS (@2200) to provide 2100 calories, 133 g protein, and 2381mL total fluid/day. 240mL H2O flush w/ each feeding. 3. hyponatremia * resolved * monitor 4. hyperkalemia * ruled out. due to hemolysis 5. MS, severe protein malnutrition, debility: * complicate overall care and recovery, but currently stable * palliative care consult * pt informed SW he wishes to be DNRCCA w intubation 6. VTE prophylaxis: LMWH Inpatient E&M: 83551 Subs Hosp L2
[2020-07-26] MEDS: levoFLOXacin IV 750 MG/150 ML BAG 100 MG IV (21:02)
[2020-07-26] MEDS: Acetaminophen 650 MG/20 ML UDC GT (21:11)
--- NOTE | 2020-07-26 21:27 | CPS ---
pt unable to perform effectively
--- NOTE | 2020-07-26 21:57 | NURSING ---
Julia called in for update, updated her of pt's transfer to [id number]. EDUARDA Estevez
--- NOTE | 2020-07-26 22:48 | NURSING ---
Pt's called in to check and see how he was doing after being transferred to our floor. She is aware of the visiting hours and conditions and also what room the pt is in.
[2020-07-27] VITALS (8 sets, daily range): BP systolic 101–119; BP diastolic 45–59; PULSE 71–85; RESP 18–20; TEMP 36.4–36.8; O2SAT 93–96
[2020-07-27] MEDS: guaiFENesin 10 ML UDC (200MG/10ML) GT ×4 (02:58→13:13)
[2020-07-27 06:52] LABS: Absolute Lymphocyte Count 0.55 X10^3/uL (0.83-4.51); Absolute Neutrophil Count 5.8 X10^3/uL (2.0-7.7); Basophil# 0.03 X10^3/uL; Basophil% 0.4 % (0-1); Eosinophil# 0.14 X10^3/uL; Hemoglobin 11.3 g/dL (13.0-16.5); Lymphocyte # 0.55 X10^3/ul (4.0); Lymphocyte % 7.7 % (19-41); Mean Corp Hgb Conc 32.3 g/dL (32-36); Mean Corpuscular Hgb 28.8 pg (27.0-32.0); Mean Corpuscular Volume 89.1 fL (80-94); Mean Platelet Vol. 11.3 fl (6.2-12.0); Monocyte# 0.51 X10^3/uL; Monocyte% 7.2 % (0-10); NRBC Flagged by Analyzer 0 % (0-5); Neutrophil # 5.84 X10^3/uL (2.7-7.7); Neutrophil % 82.3 % (47-70); POSITIVE DIFFERENTIAL YES; Platelet Count 228 K/mm3 (150-450); RBC Distribution Width CV 14.1 % (11.6-14.6); RBC Distribution Width SD 46.5 fl (35.1-43.9); Red Blood Count 3.93 M/mm3 (4.6-6.2); White Blood Count 7.1 K/mm3 (4.4-11.0)
[2020-07-27 06:54] LABS: Differential Indicated SCAN CRITERIA MET
[2020-07-27] MEDS: 0.9% Saline Lock 10 ML Syringe IV (06:56)
[2020-07-27 07:12] LABS: Differential Comment SCANNED
[2020-07-27 07:21] LABS: Anion Gap 6 (5-15); BUN 16 mg/dL (7-18); BUN/Creat Ratio 55.6 RATIO (10-20); Calcium,Total 8.3 mg/dL (8.5-10.1); Chloride 104 mmol/L (98-107); Creatinine, Serum 0.29 mg/dL (0.70-1.30); EST Glomerular Filtration Rate 328 mL/min (>60); Est Glom Filt Rate - Afr Amer 397 mL/min (>60); Estimated Creatinine Clearance 49.35 ml/min; Glucose 104 mg/dL (74-106); Potassium 3.6 mmol/L (3.5-5.1); Sodium Level 137 mmol/L (136-145)
[2020-07-27] MEDS: Baclofen 10 MG Tablet 5 MG GT (10:26)
[2020-07-27] MEDS: Lansoprazole 15 MG Capsule.DR GT (10:26)
[2020-07-27] MEDS: Enoxaparin 40 MG/0.4 ML Syringe SC (10:27)
[2020-07-27] MEDS: Calcium Carb/Vitamin D 1 TABLET Tablet GT (10:27)
--- NOTE | 2020-07-27 11:05 | PCM.DC ---
- Discharge Diagnoses Current Active Problems: Current Active and Chronic Problems HTN (hypertension) (Chronic) HLD (hyperlipidemia) (Chronic) Anxiety and depression (Chronic) Malnutrition (Chronic) Pneumonia (Acute) Multiple sclerosis (Chronic) Call your doctor if you observe: Fever of 101 or Higher, Shortness of breath Allergies/Adverse Reactions: Allergies No Known Allergies Allergy (Verified 07/25/20 17:35) Medications to take at Discharge Baclofen [Lioresal] 5 mg GT DAILY PRN 06/23/13 Baclofen [Lioresal] 10 mg GT QHS 06/23/13 Calcium Carbonate/Vitamin D3 [Calcium 600-Vit D3 400 Tablet] 1 each GT DAILY 06/23/13 Clonazepam [Klonopin] 0.5 mg GT QHS 06/23/13 Nystatin Powder [Mycostatin Powder] 1 applic TOPICAL BID 06/28/18 Albuterol Inhaler [Ventolin Hfa] 1 - 2 puff INHALATION Q4H PRN 07/25/20 Glycopyrrolate 2 mg PO DAILY PRN 07/25/20 Nut.tx.impaired Digestive Fxn [Peptamen 1.5] 1,000 ml PO 07/25/20 Omeprazole/Sodium Bicarbonate [Omeprazole-Bicarb 20-1,680 Pkt] 1 ea GT DAILY 07/25/20 Baclofen 5 mg GT BREAKFAST 07/26/20 Guaifenesin [Robitussin] 10 ml GT Q4H #30 udc 07/27/20 Levofloxacin 500 mg GT DAILY 5 Days #5 solution 07/27/20 The following prescriptions were given: Levofloxacin 500 mg GT DAILY 5 Days #5 solution Transmission Status: Pending to [facility] Guaifenesin [Robitussin] 10 ml GT Q4H #30 udc Transmission Status: Pending to [facility] Primary Care Physician: [facility] [Primary Care Provider] - Within 2 Weeks Test Results: Test results from this visit will be discussed in further detail at your follow-up appointment, if applicable. Proposed Discharge Date: 07/27/20
[2020-07-27] MEDS: Menthol/Lanolin/Calamine/Znox 113 GM Tube 1 APPLIC TOPICAL (11:15)
--- NOTE | 2020-07-27 11:15 | DS.PCM_ITS ---
Discharge Date and Diagnosis - Problem List Patient Problems: Active and Suspected Problems Pneumonia (Acute) Date of Admission: 07/25/20 Date of Discharge: 07/27/20 - Primary Discharge Diagnosis Acute Problems: Active Problems Pneumonia (Acute) - Secondary Discharge Diagnosis Chronic Problems: Chronic Problems HTN (hypertension) (Chronic) HLD (hyperlipidemia) (Chronic) Anxiety and depression (Chronic) Malnutrition (Chronic) Multiple sclerosis (Chronic) Hospital Course and Treatment Imaging Results: Clinical Impression(s) from Imaging Studies Chest X-Ray 07/25/20 19:35 IMPRESSION: Nonspecific opacities within the right mid and lower lung may be secondary to confluence of shadows however cannot exclude underlying atelectasis and/or pneumonia. Electronically Signed: Marina Kaiser MD at 20:01 EST Tel , Service support , Chest CT 07/25/20 20:35 IMPRESSION: Bilateral pleural effusions associated with consolidation within the lower lobes and bilateral patchy and groundglass opacities consistent with multifocal pneumonia; recommend follow-up chest CT in 10-12 weeks is for resolution. Atherosclerosis. Electronically Signed: Marina Kaiser MD at 21:16 EST Tel , Service support , Operations: None Procedures: None Summary of Care Provided: The patient is a 69 year old M with advanced multiple sclerosis who is wheelchair-bound presents with coughing. [facility]ground [facility] due to Radha-Brito tear. Patient had continued to cough and presented here. Patient had a CAT scan that showed bilateral infiltrates as well as effusions. Patient was started on broad-spectrum antibiotics. Patient was not on oxygen during the hospitalization and was stable. Patient has a lot of chronic conditions and profound weakness due to his multiple sclerosis. Patient has remained stable and has had no adverse events. Plan is for the patient to be discharged to complete antibiotics. Patient will be discharged with 5 more days levofloxacin complete a 7-day course of antibiotics. With the patient's advanced multiple sclerosis, he is essentially wheelchair and bedbound. Patient has a PEG tube as he does not eat on his own. They have medical devices, such as suctioning, at home. Patient and his do not need home health care at this point in time. Patient will be discharged home in stable guarded condition. Patient is guarded condition is due to his just advanced multiple sclerosis and poor performance status. [] Patient Problems: Active and Suspected Problems Pneumonia (Acute) - Physical Exam Vitals/I&O's: Vital Signs Temp Pulse Resp BP Pulse Ox 36.8 C 85 20 H 113/45 L 93 07/27/20 08:01 07/27/20 08:07 07/27/20 08:07 07/27/20 08:01 07/27/20 08:07 Oxygen Delivery Method Room Air Weight: 51.5 kg Body Mass Index (BMI) 19.5 Intake and Output for Last 24 Hours 07/25/20 07/26/20 07/27/20 23:59 23:59 23:59 Intake Total 1100.5 / 1100.5 2965.0 / 2965.0 50 / 50 Output Total 1400 / 1820 920 / 920 Balance 1100.5 / 1100.5 1565.0 / 1145.0 -870 / -870 General: No apparent distress, - - This list. Afebrile. Opens his eyes briefly to voice and mumbles some things and quickly goes back to sleep. HEENT: Atraumatic, Normocephalic Oral: Moist Mucosa, No Gingival or Mucosal Lesions/ Ulcerations Neck: No Nodes, Thyroid Normal Size and Texture Lungs: Diminished, - - coarse breath sounds bilaterally Musculoskeletal: Cachexia, Muscle Wasting Microbiology Past 72 Hours 07/26/20 03:20 Urine, Random Legionella Antigen - Final 07/26/20 03:20 Urine, Random Streptococcus pneumoniae Antigen (M - Final 07/25/20 18:47 Mucosa - Nose SARS-CoV-2 Antigen (Rapid) - Final Laboratory Results 07/27/20 06:20: WBC 7.1, RBC 3.93 L, Hgb 11.3 L, Hct 35.0 L, MCV 89.1, MCH 28.8, MCHC 32.3, RDW Std Deviation 46.5 H, RDW Coeff of Margo 14.1, Plt Count 228, MPV 11.3, Immature Gran % (Auto) 0.400, Neut % (Auto) 82.3 H, Lymph % (Auto) 7.7 L, [place] % (Auto) 7.2, Eos % (Auto) 2.0, Baso % (Auto) 0.4, Absolute Neuts (auto) 5.8, Absolute Lymphs (auto) 0.55 L, Nucleated RBC % 0, Differential Comment SCANNED 07/27/20 06:20: Sodium 137, Potassium 3.6, Chloride 104, Carbon Dioxide 27.0, Anion Gap 6, BUN 16, Creatinine 0.29 L, Estim Creat Clear Calc 49.35, Est GFR (MDRD) Af Amer 397, Est GFR (MDRD) Non-Af 328, BUN/Creatinine Ratio 55.6 H, Glucose 104, Calcium 8.3 L Current Medications Acetaminophen (Acetaminophen 650 Mg/20 Ml Udc) 650 mg GT Q6H PRN PRN PRN Reason: Pain Score 1-10/Temp > 100.7 F Last Admin: 07/26/20 21:11 Dose: 650 mg Documented by: Albuterol Sulfate (Albuterol 2.5 Mg/3 Ml Vial.Neb.) 2.5 mg INHALATION Q2H PRN PRN PRN Reason: SOB/WHEEZING Last Admin: 07/26/20 05:44 Dose: 2.5 mg Documented by: Baclofen (Baclofen 10 Mg Tablet) 5 mg GT DAILY PRN PRN PRN Reason: SPASMS/PAIN Last Admin: 07/26/20 13:23 Dose: 5 mg Documented by: Baclofen (Baclofen 10 Mg Tablet) 10 mg GT QHS [facility] Last Admin: 07/26/20 21:04 Dose: 10 mg Documented by: Baclofen (Baclofen 10 Mg Tablet) 5 mg GT DAILY [facility] Last Admin: 07/27/20 10:26 Dose: 5 mg Documented by: Calamine/Phenol (Menthol/Lanolin/Calamine/Znox 113 Gm Tube) 1 applic TOPICAL BID [facility]; Protocol Last Admin: 07/26/20 21:03 Dose: 1 applicatio Documented by: Calcium/Vitamin D (Calcium Carb/Vitamin D 1 Tablet Tablet) 1 tablet GT DAILY [facility] Last Admin: 07/27/20 10:27 Dose: 1 tablet Documented by: Clonazepam (Clonazepam 0.5 Mg Tablet) 0.5 mg GT QHS [facility] Last Admin: 07/26/20 21:12 Dose: 0.5 mg Documented by: Enoxaparin Sodium (Enoxaparin 40 Mg/0.4 Ml Syringe) 40 mg SC DAILY [facility] Last Admin: 07/27/20 10:27 Dose: 40 mg Documented by: Glycopyrrolate (Glycopyrrolate 1 Mg Tablet) 2 mg GT DAILY PRN PRN PRN Reason: excessive salivation Last Admin: 07/26/20 00:59 Dose: 2 mg Documented by: Guaifenesin (Guaifenesin 10 Ml Udc (200mg/10ml)) 10 ml GT Q4H [facility] Last Admin: 07/27/20 10:27 Dose: 10 ml Documented by: Piperacillin Sod/Tazobactam (Sod 3.375 gm/ Sodium Chloride) 50 mls @ 12.5 mls/hr IV Q8 [facility] Last Admin: 07/27/20 06:53 Dose: 12.5 mls/hr Documented by: Lactobacillus Acidophilus (Lactobacillus Acidophilus) 1 tablet GT 4X/DAY [facility] Last Admin: 07/27/20 10:26 Dose: 1 tablet Documented by: Lansoprazole (Lansoprazole 15 Mg Capsule.) 15 mg GT DAILY [facility] Last Admin: 07/27/20 10:26 Dose: 15 mg Documented by: Melatonin (Melatonin 3 Mg Tablet) 3 mg GT QHS PRN PRN PRN Reason: INSOMNIA Nystatin (Nystatin Powder 15gm Bottle) 1 applic TOPICAL BID [facility]; Protocol Last Admin: 07/26/20 21:03 Dose: 1 applicatio Documented by: Ondansetron HCl (Ondansetron 4 Mg/2 Ml Vial) 4 mg IV Q8H PRN PRN PRN Reason: NAUSEA/VOMITING Senna/Docusate Sodium (Senna/Docusate Sodium 1 Tablet) 2 tablet GT BID PRN PRN PRN Reason: Constipation Sodium Chloride (0.9% Saline Lock 10 Ml Syringe) 10 - 40 ml IV UD PRN PRN Reason: SALINE FLUSH Last Admin: 07/27/20 06:56 Dose: 10 ml Documented by: Call your doctor if you observe: Fever of 101 or Higher, Shortness of breath Home Medications: Medications to take at Discharge Baclofen [Lioresal] 5 mg GT DAILY PRN 06/23/13 Baclofen [Lioresal] 10 mg GT QHS 06/23/13 Calcium Carbonate/Vitamin D3 [Calcium 600-Vit D3 400 Tablet] 1 each GT DAILY 06/23/13 Clonazepam [Klonopin] 0.5 mg GT QHS 06/23/13 Nystatin Powder [Mycostatin Powder] 1 applic TOPICAL BID 06/28/18 Albuterol Inhaler [Ventolin Hfa] 1 - 2 puff INHALATION Q4H PRN 07/25/20 Glycopyrrolate 2 mg PO DAILY PRN 07/25/20 Nut.tx.impaired Digestive Fxn [Peptamen 1.5] 1,000 ml PO 07/25/20 Omeprazole/Sodium Bicarbonate [Omeprazole-Bicarb 20-1,680 Pkt] 1 ea GT DAILY 07/25/20 Baclofen 5 mg GT BREAKFAST 07/26/20 Guaifenesin [Robitussin] 10 ml GT Q4H #30 udc 07/27/20 Levofloxacin 500 mg GT DAILY 5 Days #5 solution 07/27/20 Following Prescriptions Were Given to Patient: Levofloxacin 500 mg GT DAILY 5 Days #5 solution Transmission Status: Received by [facility] Guaifenesin [Robitussin] 10 ml GT Q4H #30 udc Transmission Status: Received by [facility] [Primary [facility]] - Within 2 Weeks Disposition: Home Minutes spent on discharge:: 32 Patient Condition:: Stable Medical Necessity - Tobacco Use Smoking Status: Never smoker Meaningful Use Info Meaningful Use Diagnoses (Choose all that apply): None applicable Inpatient E&M: 88530 Disch Hosp
--- NOTE | 2020-07-27 11:29 | NURSING ---
discharge instructions provided to spouse Julia, states she will be here between [id number] to take pt home, as she is finishing washing up his bed. Julia requests that medications be sent to [facility] pharmacy instead, pharmacy notified of spouse request and will take care of.
--- NOTE | 2020-07-27 14:54 | PCA ---
Pt came to desk and asked for chuy wipes to clean pt up, as he was incont. of stool. This VOCATIONAL NURSE walked to room with wipes and offered to clean up pt before discharge insisted that she did not need help and shut the door in this VOCATIONAL NURSE face. career guidance technician and patient nurse aware.
--- NOTE | 2020-07-27 16:03 | NURSING ---
Student documentation reviewed.
== END 2020-07-27 15:00 | disposition home or self-care (01) | DRG 177 ==
LOC: ED 22:47 → PCU 22:53 → MS3 07-26 21:41
PROVIDERS: Admitting Provider Hospitalist; Emergency Provider Emergency Medicine
DX: J69.0 Pneumonitis due to inhalation of food and vomit (principal); E43 Unspecified severe protein-calorie malnutrition; Z68.1 Body mass index [BMI] 19.9 or less, adult; J90 Pleural effusion, not elsewhere classified; E87.1 Hypo-osmolality and hyponatremia; G35 Multiple sclerosis; R13.10 Dysphagia, unspecified; I10 Essential (primary) hypertension; E78.5 Hyperlipidemia, unspecified; F32.9 Major depressive disorder, single episode, unspecified; F41.9 Anxiety disorder, unspecified; Z99.3 Dependence on wheelchair; Z93.50 Unspecified cystostomy status; E87.5 Hyperkalemia; Z93.1 Gastrostomy status
CPT/HCPCS: 36415; 71045; 71250; 80048; 80053; 84132; 85025; 87426; 87449; 87635; 87641; 94640; 94667; 94668; 94762; 97802; 99285; J7030; J7050; A4216; U0002